=== PATIENT | female | born 2000 | race African-American/Black ===

== ENCOUNTER 2020-01-15 10:09 | Emergency (ER) | payer OTHER, SELFPAY ==
[2020-01-15 10:38] VITALS: BP 130/71; PULSE 95; RESP 16; TEMP 37.1; O2SAT 100
--- NOTE | 2020-01-15 10:39 | ED.URI ---
HPI - URI/Sore Throat General Chief Complaint: Upper Respiratory Infection Stated Complaint: Nausea/Headache Time Seen by Provider: 01/15/20 10:39 Source: patient and RN notes reviewed History of Present Illness HPI Narrative: Patient is a 19-year-old female presents the urgent care with complaints of nausea and headache for 3 days. Patient denies any nausea at this time and states that her headache is a 2 on a 10 scale. Patient has been using ibuprofen and states that it does get better . Patient is reporting of a right frontal headache. Denies any history of migraines, trauma, injury, vision changes. Denies of any fever, sore throat, upper respiratory symptoms. No other acute complaints. Denies any chance of . Patient read the plan of care. Related Data Home Medications Medication Instructions Recorded Confirmed norethindrone (contraceptive) 0.35 mg PO DAILY 01/15/20 01/15/20 Allergies Allergy/AdvReac Type Severity Reaction Status Date / Time No Known Allergies Allergy Verified 01/15/20 10:43 Review of Systems Review of Systems: Narrative: CONSTITUTIONAL: Denies fever, chills, or sweats. EYES: Denies visual changes, redness, or discharge. ENT: Denies rhinorrhea, congestion, sore throat, or otalgia. CARDIOVASCULAR: Denies chest pain, palpitations, or edema. RESPIRATORY: Denies cough or dyspnea. GASTROINTESTINAL: Reports of intermittent nausea without abdominal pain, vomiting, diarrhea GENITOURINARY: Denies dysuria or hematuria. SKIN: Denies rash or itching. MUSCULOSKELETAL: Denies back pain, joint pain, or myalgia. NEUROLOGIC: Reports of headache All other systems reviewed are negative, except as documented in HPI. PMFSH Past Medical History Medical History (Updated 01/15/20 @ 10:57 by NATALIE Petty) Bacterial meningitis Surgical History Surgical History (Updated 10/08/19 @ 11:19 by NATALIE Collins) Previous section Comments At the time of my signature, I reviewed and agree with the nursing past medical, surgical, social, and family history. There is no relevant family history pertinent to the patient complaint. Exam Narrative: Exam Narrative: GENERAL: This is a well-nourished, well-developed patient, in no apparent distress. HEAD: normocephalic, atraumatic. EYES: PERRL. Sclera clear/white. Vision is grossly intact. EARS: External ears normal, auditory canals clear and without drainage, TMs normal without perforation. Hearing grossly intact. NOSE: External nose normal with no obvious nasal discharge, nares without redness, no rhinorrhea. THROAT: Mucous membranes moist, posterior pharynx clear. NECK: Neck supple, non-tender without lymphadenopathy, masses or thyromegaly. CARDIOVASCULAR: Regular rate and rhythm without murmurs, gallops, or rubs. RESPIRATORY: Clear to auscultation. Breath sounds equal bilaterally. No wheezes, rales, or rhonchi. SKIN: warm, intact with no suspicious lesions or rash, good texture and turgor. NEURO: awake, alert, and oriented to person, place and time. There were no obvious focal neurologic abnormalities. EXTREMITIES: No clubbing, cyanosis, or edema. Course Vital Signs Vital signs: Vital Signs Temperature 98.7 F 01/15/20 10:38 Pulse Rate 95 01/15/20 10:38 Respiratory Rate 16 01/15/20 10:38 Blood Pressure 130/71 01/15/20 10:38 Pulse Oximetry 100 01/15/20 10:38 Temperature 98.7 F 01/15/20 10:38 Pulse Rate 95 01/15/20 10:38 Respiratory Rate 16 01/15/20 10:38 Blood Pressure 130/71 01/15/20 10:38 Pulse Oximetry 100 01/15/20 10:38 Reviewed MDM - URI/Sore Throat MDM Narrative Medical decision making narrative: Advised the patient to continue using ibuprofen as needed for headache. May try using Excedrin but do not take in conjunction with ibuprofen. Make sure to eat and drink with the medications. Eat a bland diet to avoid vomiting. If headache persists and you develop vomiting?go to the emergency
== END 2020-01-15 11:06 | disposition home or self-care (01) ==
PROVIDERS: Emergency Provider Nurse Practitioner Family
DX: R51 Headache (principal); Z86.61 Personal history of infections of the central nervous system
CPT/HCPCS: 99211; G0463

== ENCOUNTER 2020-09-04 11:28 | Emergency (ER) | payer OTHER, SELFPAY ==
[2020-09-04 11:45] VITALS: BP 133/62; PULSE 72; RESP 18; TEMP 36.7; O2SAT 99
--- NOTE | 2020-09-04 12:12 | ED.URI ---
HPI - URI/Sore Throat General Chief Complaint: Upper Respiratory Infection Stated Complaint: sore throat/bump on side of face Time Seen by Provider: 09/04/20 11:50 Source: patient and RN notes reviewed Mode of arrival: ambulatory Limitations: no limitations History of Present Illness HPI Narrative: Patient presents today left ear pain lump in front of the left ear is painful x1 week. She reports a sore throat, cough, and body aches x5 days. Reports was diagnosed with strep throat 4 days ago. Denies shortness of breath, fever, difficulty swallowing. Currently rates her pain 5/10 and has been occasionally taking ibuprofen with some relief. Declines COVID-19 testing. MD elicited complaint: sore throat Related Data Home Medications Medication Instructions Recorded Confirmed norethindrone (contraceptive) 0.35 mg PO DAILY 01/15/20 09/04/20 Allergies Allergy/AdvReac Type Severity Reaction Status Date / Time No Known Allergies Allergy Verified 09/04/20 12:53 Review of Systems Review of Systems: Narrative: CONSTITUTIONAL: Denies fever, chills, or sweats.+ Body aches EYES: Denies visual changes, redness, or discharge. ENT: Denies rhinorrhea, congestion. + Left ear pain, sore throat CARDIOVASCULAR: Denies chest pain, palpitations, or edema. RESPIRATORY: Denies dyspnea.+ GASTROINTESTINAL: Denies abdominal pain, nausea, vomiting, or diarrhea. GENITOURINARY: Denies dysuria or hematuria. SKIN: Denies rash, itching, or wounds. MUSCULOSKELETAL: Denies back pain, joint pain, or myalgia. NEUROLOGIC: Denies headache, numbness, tingling, or weakness. PSYCH: Denies depression or anxiety. PMFSH Past Medical History Medical History (Updated 09/04/20 @ 12:15 by Liv Strauss, NATALIE, ) Bacterial meningitis Surgical History Surgical History (Updated 10/08/19 @ 11:19 by CHAVEZ CollinsP) Previous section Comments At time of signature, I have reviewed and agree with nursing past medical, surgical, social and family history unless otherwise noted. Please see nursing chart for further information. There is no relevant family history pertinent to the presenting complaint Exam Narrative: Exam Narrative: GENERAL: Well-appearing, well-nourished, and in no acute distress. HEAD: Normocephalic, atraumatic. EYES: EOMI. No redness or drainage. Conjunctivae normal. ENT: Mucous membranes pink and moist. Nares clear. No rhinorrhea. TMs normal bilaterally. Throat erythematous with mild edema. No exudate. Uvula midline. NECK: Normal AROM. Supple. Left preauricular and left anterior cervical chain lymphadenopathy. CHEST: No respiratory distress. Clear to auscultation. HEART: Regular rate and rhythm. No murmur appreciated. Normal peripheral pulses. EXTREMITIES: Normal range of motion. No edema. SKIN: Warm, dry, no rash. Capillary refill normal. Normal skin turgor. NEURO: No focal deficits. Alert and oriented x3. Gait steady. PSYCH: Normal affect. No signs of depression or anxiety. Course Vital Signs Vital signs: Vital Signs Temperature 98.0 F 09/04/20 11:45 Pulse Rate 72 09/04/20 11:45 Respiratory Rate 18 09/04/20 11:45 Blood Pressure 133/62 09/04/20 11:45 Pulse Oximetry 99 09/04/20 11:45 Temperature 98.0 F 09/04/20 11:45 Pulse Rate 72 09/04/20 11:45 Respiratory Rate 18 09/04/20 11:45 Blood Pressure 133/62 09/04/20 11:45 Pulse Oximetry 99 09/04/20 11:45 Reviewed. Pt has been instructed to follow up with her PCP regarding her elevated blood pressure today. MDM - URI/Sore Throat Differential Diagnosis Differential diagnosis: Likely upper respiratory infection, otitis media, sinusitis, viral infection, bronchitis, pharyngitis and other (Strep throat) Lab Data Attestation: I reviewed the patient's lab results. Labs: Strep Screen Presumptive Negative *(Reference Range: Negative)* Critical Care Time Critical C
== END 2020-09-04 12:20 | disposition home or self-care (01) ==
PROVIDERS: Emergency Provider Nurse Practitioner; PCP Family Medicine
DX: J06.9 Acute upper respiratory infection, unspecified (principal)
CPT/HCPCS: 87081; 87880; 99213; G0463

== ENCOUNTER 2021-07-11 10:49 | Outpatient (CLI) | payer OTHER, SELFPAY ==
[2021-07-11 20:07] LABS: Basophils Absolute Auto 0.1 K/mm3 (0.0-0.1); Basophils Percent Auto 0.5 % (0.2-1.2); Eosinophils Absolute Auto 0.1 K/mm3 (0-0.3); Eosinophils Percent Auto 1.1 % (0-4.4); Hematocrit 38.5 % (37.0-47.0); Hemoglobin 12.2 g/dL (12.0-15.0); Immature Granulocyte Absolute 0.06 K/mm3 (0.00-0.031); Immature Granulocyte Percent A 0.5 % (0-0.5); Lymphocytes Absolute Auto 2.46 K/mm3 (0.9-3.2); Lymphocytes Percent Auto 22.3 % (18.3-44.2); Mean Corpuscular HGB Conc 31.7 g/dl (32-36); Mean Corpuscular Hemoglobin 26.5 pg (26-34); Mean Corpuscular Volume 83.7 fl (80-100); Mean Platelet Volume 10.4 fl (7.4-10.4); Monocytes Absolute Auto 0.9 K/mm3 (0.1-0.6); Monocytes Percent Auto 7.8 % (2.6-8.5); Neutrophils Absolute Auto 7.5 K/mm3 (1.3-6.7); Neutrophils Percent Auto 67.8 % (45.5-73.1); Platelet Count Result 294 k/mm3 (150-375); Red Cell Distribution Width 13.4 % (11.5-14.5)
[2021-07-11 20:13] LABS: Add Urine Microscopic? YES; Appearance Urine Cloudy (Clear); Bilirubin Urine Negative (Negative); Blood Urine Negative (Negative); Calcium Oxalate Crystals Urine Many /hpf; Color Urine Amber (Yellow); Glucose Urine UA Negative (Negative); Ketones Urine Negative (Negative); Leukocyte Esterase Ur Negative LEU/UL (NEGATIVE); Mucus Urine Heavy /lpf; Nitrate Urine Negative (Negative); Protein Urine Negative (Negative); Specific Grav Ur 1.029 (1.001-1.035); Squamous Epithelial Cell Urine Many /hpf (Few)
[2021-07-11 20:31] LABS: Vitamin D 25 Hydroxy 31.9 ng/mL
[2021-07-11 20:46] LABS: Hepatitis B Surface Antigen Negative (Negative); Rubella IgG Antibody 8.9 IU/ML
[2021-07-11 20:48] LABS: Thyroid Stimulating Hormone 0.843 uIU/mL (0.465-4.680)
[2021-07-11 20:55] LABS: HIV 1/2 Ab P24 Ag Result Negative (Negative)
[2021-07-11 21:03] LABS: Hepatitis C Virus Antibody Negative (Negative)
[2021-07-12 11:20] LABS: Rapid Plasma Reagin Non-Reactive (NonReactive)
[2021-07-17 04:14] LABS: Hemoglobin 12.4 g/dL (11.7-15.5); MCH 27.4 pg (27.0-33.0); MCV 84.4 fL (80.0-100.0); RDW 14.5 % (11.0-15.0)
== END 2021-07-11 10:50 | disposition home or self-care (01) ==
PROVIDERS: PCP Family Medicine; Visit Provider Obstetrics & Gynecology
DX: Z34.90 Encounter for supervision of normal pregnancy, unspecified, unspecified trimester (principal); N91.2 Amenorrhea, unspecified; Z3A.00 Weeks of gestation of pregnancy not specified
CPT/HCPCS: 36415; 81001; 82306; 83021; 84443; 85025; 86592; 86703; 86762; 86787; 86803; 86850; 86900; 86901; 87086; 87340; G0432

== ENCOUNTER 2021-10-03 11:23 | Outpatient (CLI) | payer OTHER, SELFPAY ==
[2021-10-03 18:26] LABS: Basophils Percent Auto 0.4 % (0.2-1.2); Eosinophils Absolute Auto 0.1 K/mm3 (0-0.3); Eosinophils Percent Auto 1.2 % (0-4.4); Hematocrit 35.4 % (37.0-47.0); Hemoglobin 11.4 g/dL (12.0-15.0); Immature Granulocyte Absolute 0.08 K/mm3 (0.00-0.031); Immature Granulocyte Percent A 0.7 % (0-0.5); Lymphocytes Absolute Auto 2.31 K/mm3 (0.9-3.2); Lymphocytes Percent Auto 21.1 % (18.3-44.2); Mean Corpuscular HGB Conc 32.2 g/dl (32-36); Mean Corpuscular Hemoglobin 27.9 pg (26-34); Mean Corpuscular Volume 86.8 fl (80-100); Mean Platelet Volume 10.8 fl (7.4-10.4); Monocytes Absolute Auto 0.9 K/mm3 (0.1-0.6); Monocytes Percent Auto 7.9 % (2.6-8.5); Neutrophils Absolute Auto 7.5 K/mm3 (1.3-6.7); Neutrophils Percent Auto 68.7 % (45.5-73.1); Platelet Count Result 251 k/mm3 (150-375); Red Blood Count 4.08 M/mm3 (4.2-5.4); Red Cell Distribution Width 12.7 % (11.5-14.5); White Blood Count 10.9 K/mm3 (4.5-10.0)
[2021-10-03 18:31] LABS: Glucose 1 Hour PP 50gm Dose 113 mg/dL
[2021-10-03 19:10] LABS: HIV 1/2 Ab P24 Ag Result Negative (Negative)
[2021-10-04 07:12] LABS: Rapid Plasma Reagin Non-Reactive (NonReactive)
== END 2021-10-03 11:24 | disposition home or self-care (01) ==
LOC: ANHBWCLAB 11:24
PROVIDERS: PCP Family Medicine; Visit Provider Obstetrics & Gynecology
DX: Z34.90 Encounter for supervision of normal pregnancy, unspecified, unspecified trimester (principal); Z3A.00 Weeks of gestation of pregnancy not specified
CPT/HCPCS: 36415; 82947; 85025; 86592; 86703; G0432

== ENCOUNTER 2021-10-11 15:11 | Observation (INO) | payer OTHER, SELFPAY ==
[2021-10-11 15:45] VITALS: BP 126/67; PULSE 98
[2021-10-11 15:57] VITALS: BMI 36.4
--- NOTE | 2021-10-11 16:37 | OBADM ---
This patient, Sherrie Ellis, admitted to the OB room OB Post 117 for observation. Patient oriented to hospital policies and general routines including ID bracelet, bed and alarms, visiting hours, pain management, procedures, bathroom and other care routines, call light. Patient is encouraged to report perceived risks to care and to ask questions if she does not understand what she is told or what she should do.
--- NOTE | 2021-10-16 08:15 | PM.OBTRLD ---
OB - Triage/Final Diagnosis Visit Information Comments/Additional reasons for admission: I have assessed the risk for this patient, Sherrie Li Caleb, and determined that she would benefit from observation care. Final Diagnosis (1) contractions: Code(s): O47.00 - False labor before 37 completed weeks of gestation, unspecified trimester Status: Acute
== END 2021-10-11 16:42 | disposition home or self-care (01) ==
PROVIDERS: Admitting Provider Obstetrics & Gynecology; PCP Family Medicine; Visit Provider Obstetrics & Gynecology
DX: O60.02 Preterm labor without delivery, second trimester (principal); Z3A.27 27 weeks gestation of pregnancy
CPT/HCPCS: G0378; G0379

== ENCOUNTER 2021-10-31 14:27 | Outpatient (CLI) | payer OTHER, SELFPAY ==
[2021-10-31 15:02] LABS: Basophils Absolute Auto 0.1 K/mm3 (0.0-0.1); Basophils Percent Auto 0.4 % (0.2-1.2); Eosinophils Absolute Auto 0.1 K/mm3 (0-0.3); Eosinophils Percent Auto 0.6 % (0-4.4); Hematocrit 36.4 % (37.0-47.0); Hemoglobin 11.7 g/dL (12.0-15.0); Immature Granulocyte Percent A 0.8 % (0-0.5); Lymphocytes Absolute Auto 2.45 K/mm3 (0.9-3.2); Lymphocytes Percent Auto 19.8 % (18.3-44.2); Mean Corpuscular HGB Conc 32.1 g/dl (32-36); Mean Corpuscular Hemoglobin 27.5 pg (26-34); Mean Corpuscular Volume 85.6 fl (80-100); Mean Platelet Volume 10.8 fl (7.4-10.4); Monocytes Absolute Auto 1.1 K/mm3 (0.1-0.6); Monocytes Percent Auto 8.5 % (2.6-8.5); Neutrophils Absolute Auto 8.7 K/mm3 (1.3-6.7); Neutrophils Percent Auto 69.9 % (45.5-73.1); Platelet Count Result 216 k/mm3 (150-375); Red Blood Count 4.25 M/mm3 (4.2-5.4); Red Cell Distribution Width 12.5 % (11.5-14.5); White Blood Count 12.4 K/mm3 (4.5-10.0)
[2021-10-31 15:14] LABS: Alanine Aminotransferase 15 U/L (4-35); Alkaline Phosphatase 129 U/L (38-126); Anion Gap 8 mmol/L (8-16); Aspartate Amino Transferase 23 U/L (14-36); Blood Urea Nitrogen 5 mg/dL (7-17); Carbon Dioxide 23 mmol/L (22-30); Chloride 103 mmol/L (98-107); Estimated Glomerular Filt Rate > 60; Glucose 110 mg/dL (65-110); Potassium 4.3 mmol/L (3.4-5.0); Sodium 134 mmol/L (137-145); Uric Acid 3.3 mg/dL (2.5-7.5)
[2021-10-31 15:28] LABS: Lactate Dehydrogenase 496 U/L (313-618)
== END 2021-10-31 14:28 | disposition home or self-care (01) ==
PROVIDERS: PCP Family Medicine; Visit Provider Student in an Organized Health Care Education/Training Program
DX: R03.0 Elevated blood-pressure reading, without diagnosis of hypertension (principal); O09.299 Supervision of pregnancy with other poor reproductive or obstetric history, unspecified trimester; Z3A.00 Weeks of gestation of pregnancy not specified
CPT/HCPCS: 36415; 80053; 83615; 84550; 85025

== ENCOUNTER 2021-11-01 17:26 | Outpatient (CLI) | payer OTHER, SELFPAY ==
[2021-11-01 19:05] LABS: Total Volume 24 Hour Urine 900 ml
[2021-11-01 19:14] LABS: Total Protein Urine 24 Hr 81 mg/24hr (28-141); Total Protein Urine Random 9 mg/dL
[2021-11-01 19:15] LABS: Creatinine 24 Hour Urine 1.3 gm/24 (0.8-1.8)
== END 2021-11-01 17:27 | disposition home or self-care (01) ==
LOC: ANHLAB 17:29
PROVIDERS: PCP Family Medicine; Visit Provider Student in an Organized Health Care Education/Training Program
DX: R03.0 Elevated blood-pressure reading, without diagnosis of hypertension (principal); O09.299 Supervision of pregnancy with other poor reproductive or obstetric history, unspecified trimester; Z3A.00 Weeks of gestation of pregnancy not specified
CPT/HCPCS: 81050; 82570; 84156

== ENCOUNTER 2021-11-26 07:46 | Outpatient (CLI) | payer OTHER, SELFPAY ==
[2021-11-26] VITALS (10 sets, daily range): BP systolic 118–133; BP diastolic 61–77; PULSE 82–90; TEMP 37.2
--- NOTE | 2021-11-26 08:49 | PC.NURSE ---
Dr. Castorena informed of this pt's arrival at 34 wks twin gestation with c/o headache since yesterday morning, spots in vision at times, upper abdominal burning, no edema, and normal reflexes. Pt took Tylenol early this morning when she rated her headache an 8-9 and she rated it a 5-6 upon arrival. Orders received.
[2021-11-26 09:20] LABS: Basophils Absolute Auto 0.1 K/mm3 (0.0-0.1); Basophils Percent Auto 0.5 % (0.2-1.2); Eosinophils Absolute Auto 0.1 K/mm3 (0-0.3); Hematocrit 33.4 % (37.0-47.0); Immature Granulocyte Absolute 0.05 K/mm3 (0.00-0.031); Immature Granulocyte Percent A 0.5 % (0-0.5); Lymphocytes Absolute Auto 2.03 K/mm3 (0.9-3.2); Lymphocytes Percent Auto 22.1 % (18.3-44.2); Mean Corpuscular HGB Conc 32.9 g/dl (32-36); Mean Corpuscular Hemoglobin 27.4 pg (26-34); Mean Corpuscular Volume 83.3 fl (80-100); Mean Platelet Volume 11.1 fl (7.4-10.4); Monocytes Absolute Auto 0.7 K/mm3 (0.1-0.6); Monocytes Percent Auto 7.7 % (2.6-8.5); Neutrophils Absolute Auto 6.3 K/mm3 (1.3-6.7); Neutrophils Percent Auto 68.2 % (45.5-73.1); Platelet Count Result 190 k/mm3 (150-375); Red Blood Count 4.01 M/mm3 (4.2-5.4); Red Cell Distribution Width 12.5 % (11.5-14.5); White Blood Count 9.2 K/mm3 (4.5-10.0)
[2021-11-26 09:29] LABS: Alanine Aminotransferase 14 U/L (4-35); Albumin Level 3.6 g/dL (3.5-5.1); Alkaline Phosphatase 167 U/L (38-126); Anion Gap 8 mmol/L (8-16); Aspartate Amino Transferase 17 U/L (14-36); Bilirubin,Total 0.8 mg/dL (0.2-1.3); Blood Urea Nitrogen 5 mg/dL (7-17); Calcium 8.9 mg/dL (8.4-10.2); Carbon Dioxide 23 mmol/L (22-30); Chloride 103 mmol/L (98-107); Estimated Glomerular Filt Rate > 60; Glucose 97 mg/dL (65-110); Sodium 134 mmol/L (137-145); Uric Acid 3.7 mg/dL (2.5-7.5)
[2021-11-26 09:30] LABS: Creatinine Urine 211.3 mg/dL; Total Protein Urine Random 8 mg/dL; Ur Ttl Prot Creatinine Ratio 0.04 mg/mg (0-0.20)
[2021-11-26 09:40] LABS: Add Urine Microscopic? YES; Appearance Urine Cloudy (Clear); Bacteria Urine Trace /hpf; Bilirubin Urine Negative (Negative); Blood Urine Negative (Negative); Color Urine Amber (Yellow); Glucose Urine UA Negative (Negative); Ketones Urine Negative (Negative); Leukocyte Esterase Ur Negative LEU/UL (Negative); Mucus Urine Heavy /lpf; Nitrate Urine Negative (Negative); Protein Urine 1+ mg/dL (Negative); Specific Grav Ur 1.027 (1.001-1.035); Squamous Epithelial Cell Urine Many /hpf (Few); WBC Urine 0-3 /hpf
--- NOTE | 2021-11-26 09:56 | PC.NURSE ---
Dr. Castorena informed of lab results and updated on BP's. Order for discharge received. Pt to be seen in office this week.
== END 2021-11-26 10:13 | disposition home or self-care (01) ==
LOC: ANHOBOP 07:54 → ANHOBPP 07:54
PROVIDERS: PCP Family Medicine; Visit Provider Student in an Organized Health Care Education/Training Program
DX: O13.3 Gestational [pregnancy-induced] hypertension without significant proteinuria, third trimester (principal); Z3A.37 37 weeks gestation of pregnancy
CPT/HCPCS: 36415; 59025; 80053; 81001; 82570; 84156; 84550; 85025; 99199

== ENCOUNTER 2021-12-18 11:36 | Outpatient (RCR) | payer OTHER, SELFPAY ==
[2021-11-30 17:16] VITALS: BP 124/75
[2021-12-18 12:12] LABS: Basophils Percent Auto 0.3 % (0.2-1.2); Eosinophils Absolute Auto 0.1 K/mm3 (0-0.3); Eosinophils Percent Auto 0.8 % (0-4.4); Hematocrit 33.6 % (37.0-47.0); Hemoglobin 10.9 g/dL (12.0-15.0); Immature Granulocyte Absolute 0.06 K/mm3 (0.00-0.031); Immature Granulocyte Percent A 0.7 % (0-0.5); Mean Corpuscular HGB Conc 32.4 g/dl (32-36); Mean Corpuscular Hemoglobin 26.7 pg (26-34); Mean Corpuscular Volume 82.2 fl (80-100); Mean Platelet Volume 11.4 fl (7.4-10.4); Neutrophils Absolute Auto 5.5 K/mm3 (1.3-6.7); Neutrophils Percent Auto 62.2 % (45.5-73.1); Platelet Count Result 184 k/mm3 (150-375); Red Blood Count 4.09 M/mm3 (4.2-5.4); Red Cell Distribution Width 12.2 % (11.5-14.5); White Blood Count 8.8 K/mm3 (4.5-10.0)
[2021-12-18 12:13] VITALS: BP 135/78
[2021-12-18 12:57] LABS: HIV 1/2 Ab P24 Ag Result Negative (Negative)
[2021-12-19 10:42] LABS: Rapid Plasma Reagin Non-Reactive (NonReactive)
== END 2021-12-29 20:55 | disposition home or self-care (01) ==
LOC: ANHOBOP 11:36
PROVIDERS: PCP Family Medicine; Visit Provider Student in an Organized Health Care Education/Training Program
DX: O30.003 Twin pregnancy, unspecified number of placenta and unspecified number of amniotic sacs, third trimester (principal); Z11.4 Encounter for screening for human immunodeficiency virus [HIV]; Z3A.34 34 weeks gestation of pregnancy; Z3A.37 37 weeks gestation of pregnancy
CPT/HCPCS: 36415; 59025; 85025; 86592; 86703; 86850; 86900; 86901; G0432; J2274

== ENCOUNTER 2021-12-19 05:37 | Inpatient (IN) | payer OTHER, SELFPAY ==
[2021-12-19] VITALS (46 sets, daily range): BP systolic 102–132; BP diastolic 44–81; PULSE 51–134; RESP 12–20; TEMP 36.2–36.9; O2SAT 78–100; BMI 38.1
--- NOTE | 2021-12-19 05:37 | LDADM ---
This patient, Sherrie Ellis, was admitted to Labor/Delivery/Recovery 120 on 12/19/21 at 05:37. Plans for labor, pain management and were discussed with patient. Patient/family oriented to hospital policies and general routines including ID bracelet, bed and alarms, visiting hours, pain management, procedures, bathroom and other care routines, personal items, smoking policy, room service/diet and guest tray routines, infant security routines, and visiting hours. Patient/Family are encouraged to report perceived risks to care and to ask questions if they do not understand what they are told or what they should do. See OBIX for further documentation.
[2021-12-19] MEDS: LACTATED RINGERS 1,000 ML 125 ML IV CONT ×2 (06:27→07:23)
--- NOTE | 2021-12-19 06:59 | P.PNAN_ITS ---
Anes - Initial Pre Proc Eval Procedure: Operation Date: 12/19/21 07:30 Proposed Procedures p Repeat Section- Twins - Anya Castorena MD Date/Time: 12/19/21 06:59 Surgeon: Anya Castorena MD Pre Op Diagnosis: CSection Patient Data Age: 21 Gender: F Height: 1.8 m Weight: 124 kg Last Vital Signs Pulse 97 12/19/21 06:45 BP 124/78 12/19/21 06:45 Allergies Allergy/AdvReac Type Severity Reaction Status Date / Time No Known Allergies Allergy Verified 12/14/21 15:00 Home Medications Medication Instructions Recorded Confirmed Type prenat.vits,lupis,hfj-cfej-pvbzm 1 tablet PO DAILY 06/14/21 12/07/21 History ferrous sulfate 325 mg (65 mg 325 mg PO DAILY 09/05/21 12/07/21 History iron) tablet folic acid 1 mg tablet 1 mg PO DAILY 09/05/21 12/07/21 History aspirin [Aspirin Low-Strength] 162 mg PO DAILY 11/26/21 12/07/21 History Patient hx anesthesia problems: none Family hx anesthesia problems: none Results Review: All pre-operative results and documents have been reviewed as part of the pre-operative evaluation. [facility] Past Medical History Medical History Bacterial meningitis Elevated blood-pressure reading without diagnosis of hypertension History of miscarriage x 1 History of pre-eclampsia 2019 Surgical History Surgical History Previous section 2019 for failure to progress Family History Family History Mother Depression Social History Social History Smoking status: Never smoker Alcohol intake: never Substance use: never Spiritual care concerns: No Anes - Eval Final PreProcedure Day of Procedure 12/19/21 06:59 Patient weight: obese Heart: regular rate and rhythm Lungs: clear to auscultation and normal air movement Airway: Mallampati scale class II Neurological: alert and oriented Last oral intake: >/= 8 hours ASA classification: III Emergent: no Anesthetic plan: proceed Anesthesia type and monitoring: regional spinal Results Review: All pre-operative results and documents have been reviewed as part of the pre-operative evaluation. Informed Consent: The patient's anesthetic plan and its attendant risks and benefits were discussed with the patient/family/POA. Questions were solicited and answers provided to the satisfaction of the patient/family/POA.
--- NOTE | 2021-12-19 07:08 | PM.IMHP ---
H&P: HPI History of Present Illness Date/Time: 12/19/21 07:08 Patient is a 21 year old LMP 03/09/21 currently 37w2d gestation with THO 01/07/22 who presents to L&D for scheduled repeat section secondary to gestational hypertension. Patient is dated by early outside [place]. This is a di-di twin gestation. Patient has a history of previous C/S x 1 and had a history of preeclampsia in previous . She was delivered at 36 weeks. In general, patient reports feeling well today. Denies any headache, chest pain, shortness of breath, nausea, vomiting, right upper quadrant, or visual disturbances. Patient also denies any vaginal bleeding, leakage of fluid, or contractions. Reports good movement x2. Chief Complaint: IUP at 37w2d Previous section Di/Di twin gestation Gestational hypertension Review of Systems Review of Systems: All systems reviewed & are unremarkable except as noted in HPI and below Constitutional: Constitutional: Reports as per HPI, Reports no additional constitutional complaints, Denies chills, Denies fever(s), Denies headache(s) and Denies night sweats Eyes: Eyes: Reports as per HPI and Reports no additional eye complaints ENT: Reports system reviewed and no additional complaints, except as documented, Reports as per HPI, Reports Normal hearing present and Denies headache(s) Cardiovascular: Cardiovascular: Reports as per HPI, Reports no additional cardiovascular complaints, Denies chest pain and Denies dyspnea Respiratory: Respiratory: Reports as per HPI, Reports no additional respiratory complaints, Denies cough and Denies dyspnea Gastrointestinal: Gastrointestinal: Reports as per HPI, Reports no additional gastrointestinal complaints, Denies abdominal pain, Denies change in bowel habits, Denies change in stool character, Denies nausea and Denies vomiting Genitourinary: Genitourinary: Reports no additional female genitourinary complaints, Reports as per HPI, Denies abnormal vaginal bleeding, Denies genital lesions, Denies hot flashes, Denies dyspareunia, Denies pelvic pain, Denies sexual dysfunction, Denies urinary incontinence, Denies vaginal discharge, Denies vaginal dryness and Denies vaginal odor Musculoskeletal: Musculoskeletal: Reports no additional musculoskeletal complaints and Reports as per HPI Integumentary/Breasts: Skin/Breast: Reports system reviewed and no additional complaints, except as docu, Reports as per HPI, Denies breast pain and Denies nipple discharge Neurologic: Reports system reviewed and no additional complaints, except as documented, Reports as per HPI, Reports Normal hearing present and Denies headache(s) Psychiatric: Psychiatric: Reports no additional psychiatric complaints, Reports as per HPI, Denies anxiety and Denies depression Endocrine: Endocrine: Reports no additional endocrine complaints and Reports as per HPI Hematologic/Lymphatic: Hematologic/Lymphatic: Reports no additional hematologic/lymphatic complaints and Reports as per HPI Allergic/Immunologic: Allergic/Immunologic: Reports no additional allergic/immunologic complaints and Reports as per HPI PMFSH Past Medical History Medical History (Updated 12/19/21 @ 07:12 by Anya Castorena MD) Bacterial meningitis History of miscarriage x 1 History of pre-eclampsia 2019 Surgical History Surgical History Previous section 2019 for failure to progress Family History Family History Mother Depression Social History Social History Smoking status: Never smoker Alcohol intake: never Substance use: never Spiritual care concerns: No Meds Home Medications and Allergies Home Medications Medication Instructions Recorded Confirmed Type prenat.vits,lupis,mxp-crhm-qbiiv 1 tablet PO DAILY 06/14/21 12/07/21 History ferrous sulfate
--- NOTE | 2021-12-19 07:15 | WPDHPUPDATE1 ---
History and Physical Update Update Date/Time: 12/19/21 07:15 History and Physical has been reviewed, including an updated exam of the patient. There are NO changes in the patient's condition. Risks, benefits, and alternatives have been discussed and questions answered. Patient agrees to proceed with procedure.
[2021-12-19] MEDS: KETOROLAC 30 MG/ML VIAL (*BKC) IV PUSH ×2 (08:30→16:45)
--- NOTE | 2021-12-19 08:46 | W.PM.PROC2 ---
Procedure Note - Detailed Date of Procedure 12/19/21 Pre-op Diagnosis Intrauterine at 37w2d gestation Previous section x 1 Dichorionic diamniotic twin gestation Gestational hypertension Post-op Diagnosis same Procedure Performed Repeat low transverse section via Pfannenstiel Surgeon Anya Castorena MD Technology Assistant Leonie See Anesthesia spinal Findings Twin A: live male in cephalic presentation, apgars 9/9, weighing 6 lbs 14 oz, clear amniotic fluid; Twin B: live male in edi breech presentation, nuchal cord x 1, apgars 7/9, weighing 6 lbs 4 oz, clear amniotic fluid; normal appearing uterus, ovaries, and fallopian tubes bilaterally Description of Procedure The patient was taken to the operating room, where she self-transferred to the operating room table. Spinal anesthesia was administered and found to be adequate. The patient was placed in dorsal supine position with a leftward tilt. She was prepped and draped in the usual sterile fashion. Spinal anesthesia was tested and found to be adequate. A Pfannenstiel skin incision was made with a scalpel and carried through to underlying layer of fascia with the Bovie. The fascia was incised in the midline and the incision was extended laterally with the use of forceps and James scissors. The inferior aspect of the fascial incision was grasped with Katerine clamps, elevated, and the underlying rectus muscle were dissected off with James scissors. Attention was then turned to the superior aspect of the fascial incision, which in a similar manner, was grasped with Katerine clamps, elevated, and the underlying rectus muscles were also dissected off with James scissors. The rectus muscles were in the midline and the peritoneal cavity was entered bluntly. This incision was extended superiorly and inferiorly with good visualization of the bladder and care was taken to avoid blood vessels. An Eric retractor was introduced into the abdominal cavity and tightened for enhanced visualization. A bladder blade was inserted. The vesicouterine peritoneum was identified and incised sharply with Metzenbaum scissors. This incision was extended laterally with Metzenbaum scissors and a bladder flap was created digitally. The bladder blade was replaced. A low-transverse uterine incision was made with a scalpel. This incision was extended laterally with bandage scissors. Amniotomy was performed. Clear amniotic fluid was noted. A's head was grasped and gently guided to the level of the uterine incision. The 's head was delivered easily and atraumatically without difficulty followed by the neck, shoulders, and rest of body with gentle fundal pressure. The infant's nose and mouth were suctioned bulb suction. The infant was crying spontaneously. The cord was clamped and cut and the infant was handed off to awaiting nursing staff. A segment of cord was collected for cord gases. B was palpated and noted to be in breech presentation. Amniotomy was performed. Clear amniotic fluid was noted. Infant's buttocks were grasped and guided to the level of the uterine incision. The buttocks were delivered through the incision. The infant was slowly guided through the incision and gently rotated to the left. The right lower extremity was flexed and delivered. The infant was gently rotated to the right where, in a similar manner, the left lower extremity was flexed and delivered. A sterile towel was wrapped around the and the was slowly guided to the level of the scapulae. The was gently rotated to the left and the right upper extremity was flexed and delivered. The was then rotated slightly to the right and the left upper extremity was also flexed and delivered. A nuchal cord x1 was noted. The 's head was gently grasped, flexed, and delivered atraumatically and without difficulty through the incision. The nuchal cord was reduced. Infant's nose and mouth were jefferson
[2021-12-19] MEDS: diphenhydrAMINE HCl INJ 50 MG/ML VIAL 25 MG IV PUSH (08:52)
[2021-12-19] MEDS: OXYTOCIN 30 UNITS/NS 500 ML 30 UNITS/500 ML BAG 125 UNITS IV CONT (09:00)
--- NOTE | 2021-12-19 09:03 | P.PCNOB_ITS ---
OB - Delivery Note Procedure Delivery date: 12/19/21 Procedure: Procedures Operation Date: 12/19/21 07:30 <No data on this case meets the specified criteria> events: Previous and Induced HTN Intrapartal events: None Delivery monitor: external FHT and external uterine Route of delivery: Specimen: Yes (placenta and cord, cord blood, and cord gases) Quantitative Blood Loss (ml): 540 Anesthesia type: Spinal Disposition: PACU Complications: No immediate complications [place] Baby Date of : 12/19/21 Time of : 08:01 Weeks of gestation at delivery: 37 (37.2) gender: Male Weight (pounds): 6 Weight (ounces): 14 presentation: vertex Placenta delivery description: Spontaneous cord vessel description: 3 Vessels score one minute: 9 score five minutes: 9 Twins 1: Date of : 12/19/21 Time of : 08:04 Weeks of gestation at delivery: 37 (37.2) Infant gender: Male Weight (pounds): 6 Weight (ounces): 4 presentation: edi breech Placental delivery description: Spontaneous cord vessel description: Nuchal Cord (x1) score one minute: 7 score five minutes: 9 AMG Delivery Billing Delivery Delivery: Delivery Charge
--- NOTE | 2021-12-19 10:45 | PC.NURSE ---
Patient transferred to post room #277 via 1045. Support person present. Oriented to unit, room, information board, rooming in, admission packet and security measures. Patient verbalizes understanding.
--- NOTE | 2021-12-19 12:54 | PC.NURSE ---
1230 - Received report on the first for both baby A and B from nursery nurse.
--- NOTE | 2021-12-19 14:03 | PC.NURSE ---
1320 - Introductions were made and mother led the discussion of her desires to feeding her baby. Mom is holding sleepy baby B and dad is holding sleeping baby A. Reviewed handwashing to prevent infection before and after taking care of her baby. Mother verbalizes she is able to independently latch infants. She last attempted with Baby A at 0900. Discussed and reinforced how to watch for early feeding cues, place infant skin to skin, then feeding baby when is ready or every 2-3 hours (8-12 times in 24 hours) Reviewed positioning/alignment with the use of the mom and baby guide. Dad is demonstrating undressing A for skin to skin, then dad will supplement Baby B. Mom states she attempted to latch B to the breast around noon and it was on/off with difficulty latching. Mom requested formula for baby B. Supported mother with A skin to skin to the chest. No feeding cues at this time. Mom demonstrated knowledge of hand expression and confirmed her hands were clean, then placed expressed colostrum into infants mouth. She denies any nipple discomfort from earlier feeding and mom states that feeding went well. Mom's breast are large with flat nipples that john slightly with stimulation. Reinforced effective latching with demonstration with teaching tools and the mom and baby guide resource. Mother is not feeding as needed to meet requirements and teaching was reinforced. Mother has verbalized understanding and is watching for feeding cues for responsive feeding or how to stimulate infant to initiate from the start of the last feeding. Mother voiced understanding to feed infant when she sees feeding cues, 8-12 times in 24 hours approximately every 2-3 hours from the start of the last feeding or she has discomfort with nursing. Parents confirmed education of calling for assistance if the B brown not eat 15cc , either A or B does not latch or there is discomfort with nursing. Reported to primary RN.
--- NOTE | 2021-12-19 15:05 | PC.NURSE ---
1500 - RN requested to room 277. Mom states infant did not wake up for feeding after skin to skin and expressing colostrum into mouth. Mom requested a bottle for Baby A. Reported to primary RN.
[2021-12-19] MEDS: DEXTROSE 5%/0.45% SOD CHL 1,000 ML 125 ML IV CONT (16:15)
[2021-12-19] MEDS: FOLIC ACID 1 MG TABLET PO (16:18)
[2021-12-19] MEDS: SIMETHICONE 80 MG TAB.CHEW PO (21:21)
[2021-12-19] MEDS: HYDROcodone/acetaminophen (*CRX) 5-325 MG TABLET 1 TAB PO (21:21)
[2021-12-20] VITALS: BP 114/69; PULSE 82; RESP 18; TEMP 36.4
[2021-12-20] MEDS: SIMETHICONE 80 MG TAB.CHEW PO (03:50)
[2021-12-20] MEDS: IBUPROFEN 600 MG TABLET PO ×3 (03:50→17:06)
[2021-12-20] MEDS: HYDROcodone/acetaminophen (*CRX) 5-325 MG TABLET 1 TAB PO ×4 (03:51→20:39)
[2021-12-20 04:00] VITALS: BP 121/74; PULSE 74; RESP 18; TEMP 36.8
[2021-12-20 04:36] LABS: Basophils Percent Auto 0.3 % (0.2-1.2); Eosinophils Absolute Auto 0.1 K/mm3 (0-0.3); Hemoglobin 11.3 g/dL (12.0-15.0); Immature Granulocyte Absolute 0.05 K/mm3 (0.00-0.031); Immature Granulocyte Percent A 0.4 % (0-0.5); Lymphocytes Absolute Auto 2.72 K/mm3 (0.9-3.2); Lymphocytes Percent Auto 23.6 % (18.3-44.2); Mean Corpuscular HGB Conc 32.3 g/dl (32-36); Mean Corpuscular Hemoglobin 26.5 pg (26-34); Mean Corpuscular Volume 82.2 fl (80-100); Mean Platelet Volume 11.5 fl (7.4-10.4); Monocytes Absolute Auto 1.2 K/mm3 (0.1-0.6); Monocytes Percent Auto 10.7 % (2.6-8.5); Neutrophils Absolute Auto 7.4 K/mm3 (1.3-6.7); Platelet Count Result 171 k/mm3 (150-375); Red Blood Count 4.26 M/mm3 (4.2-5.4); Red Cell Distribution Width 12.2 % (11.5-14.5); White Blood Count 11.5 K/mm3 (4.5-10.0)
[2021-12-20 07:50] VITALS: BP 125/66; PULSE 74; RESP 18; TEMP 36.3; O2SAT 100
--- NOTE | 2021-12-20 10:03 | WPDANLDPN2 ---
Anes-Prog Note L&D Date/Time: 12/20/21 10:03 Comfortable throughout: section Neuraxial method: spinal Epidural/Spinal procedure site: clean & non-tender Neuro status: Neuro function grossly intact. Cardiovascular status: normal Respiratory status: normal Airway patency: baseline Mental status: baseline Post-Op hydration status: normal Vital Signs: Last Vital Signs Temp 36.3 C L 12/20/21 07:50 Pulse 74 12/20/21 07:50 Resp 18 12/20/21 07:50 BP 125/66 12/20/21 07:50 Pulse Ox 100 12/20/21 07:50 Pain score (VAS): 12/04 I/O: Intake & Output 12/19/21 12/20/21 12/20/21 23:59 07:59 15:59 Intake Total 3000 Output Total 600 3050 Balance -600 -50 Post-procedural complaints: pruritis mild, no treatment Patient feedback: Patient satisfied with anesthetic care.
--- NOTE | 2021-12-20 10:04 | WPDANLDNPN2 ---
Anes-Prog Note L&D-Neuraxial Date/Time: 12/20/21 10:04 Neuraxial medications: intrathecal PF morphine Opiod-related complaints: none Patient feedback: Patient satisfied with post-operative pain management.
[2021-12-20] MEDS: DOCUSATE SODIUM 100 MG CAPSULE PO ×2 (10:21→17:06)
[2021-12-20] MEDS: FOLIC ACID 1 MG TABLET PO (10:22)
[2021-12-20] MEDS: MULTIVIT/MIN/PREN/FOL AC/IRON TABLET 1 TAB PO (10:22)
--- NOTE | 2021-12-20 11:34 | PM.OBPNVD ---
OB - PN: Subj Subjective Date/time seen: 12/20/21 11:34 Patient doing well this AM. Pain well controlled with medication. Denies any headache, chest pain, shortness of breath, nausea, vomiting, right upper quadrant tenderness, or visual disturbances. Patient does report mild right shoulder discomfort, likely referred pain. Tolerating PO diet. Ambulating without difficulty. Voiding well. Passing flatus. OB - PN: Obj Data Labs CBC & Chem 7: 12/20/21 03:49 Labs: Laboratory Results - last 24 hr 12/20/21 03:49 WBC 11.5 H RBC 4.26 Hgb 11.3 L Hct 35.0 L MCV 82.2 MCH 26.5 MCHC 32.3 RDW 12.2 Plt Count 171 MPV 11.5 H Immature Gran % (Auto) 0.4 Neut % (Auto) 64.0 Lymph % (Auto) 23.6 [place] % (Auto) 10.7 H Eos % (Auto) 1.0 Baso % (Auto) 0.3 Lymph # (Auto) 2.72 [place] # (Auto) 1.2 H Eos # (Auto) 0.1 Baso # (Auto) 0.0 Abs Immat Gran (auto) 0.05 H Absolute Neuts (auto) 7.4 H Absolute Nucleated RBC 0.0 Nucleated RBC % 0.0 OB - PN A/P Assessment and Plan (1) Delivery by section using transverse incision of lower segment of uterus: Code(s): O82 - Encounter for delivery without indication Status: Acute Assessment and Plan: POD#1 doing well continue routine postoperative care pain management PRN Time Spent With Patient Time: Total time spent is greater than 50% in coordination of care (as documented) at patient's floor/unit and/or counseling patient: Exam Const: General: cooperative, healthy appearing, comfortable and no acute distress GI: Inspection: non-distended GI Palp: No Soft to palpation and No Tenderness to palpation present (GI) Other: fundus firm below umbilicus, inc c/d/i Extrem: Right lower extremity: no edema Left lower extremity: no edema Other: no calf tenderness
[2021-12-20 12:35] VITALS: BP 134/76; PULSE 72; RESP 16; TEMP 36.8; O2SAT 100
[2021-12-20 20:40] VITALS: BP 129/67; PULSE 64; RESP 16; TEMP 36.4; O2SAT 98
[2021-12-21] MEDS: HYDROcodone/acetaminophen (*CRX) 5-325 MG TABLET 1 TAB PO ×2 (03:56→10:01)
[2021-12-21] MEDS: IBUPROFEN 600 MG TABLET PO ×2 (03:57→10:00)
[2021-12-21 04:00] VITALS: BP 130/86; PULSE 80; RESP 18; TEMP 36.8
[2021-12-21 07:40] VITALS: BP 125/83; PULSE 75; RESP 18; TEMP 37.1; O2SAT 100
--- NOTE | 2021-12-21 08:29 | PM.OBPNVD ---
OB - PN: Subj Subjective Date/time seen: 12/21/21 08:29 Patient doing well this morning. Pain well controlled medication. Denies any headache, chest pain, shortness of breath, nausea, vomiting, right upper quadrant tenderness, or visual disturbances. Tolerating p.o. diet. Ambulating without difficulty. Voiding well. Passing flatus. OB - PN: Obj Data Labs CBC & Chem 7: 12/20/21 03:49 OB - PN A/P Assessment and Plan (1) Delivery by section using transverse incision of lower segment of uterus: Code(s): O82 - Encounter for delivery without indication Status: Acute Assessment and Plan: POD#2 doing well continue routine postoperative care dc home in stable condition emergency precautions reviewed f/u in office in 1 week for BP check Time Spent With Patient Time: Total time spent is greater than 50% in coordination of care (as documented) at patient's floor/unit and/or counseling patient: Exam Const: General: cooperative, healthy appearing, comfortable and no acute distress GI: Inspection: non-distended GI Palp: Yes Soft to palpation and No Tenderness to palpation present (GI) Other: inc c/d/i Neuro: General: patient oriented x3 Extrem: Right lower extremity: no edema Left lower extremity: no edema Other: no calf tenderness
--- NOTE | 2021-12-21 08:35 | P.DS_ITS ---
DS: Admitting Diagnosis Discharge Date 12/21/2021 Admitting Diagnosis IUP at 37w2d previous C/S x 1 di/di twin gestation gestational hypertension OB - DS: Summary OB Procedures : PIH Mgmt OB Procedures Intrapartum: OB Procedures: : None Peripartum Data Procedures: Procedures Operation Date: 12/19/21 07:30 Actual Procedure Side Surgeon p Repeat Section- Twins Anya Castorena MD Time Spent with Patient Time attestation: Total time spent providing and/or coordinating discharge services: DS: Data Data Completed and Pending Pending studies at discharge: Pending at discharge 12/19/21 08:05 Surgical [PTH] Routine Discharge Plan Discharge Attending physician on discharge: Anya Castorena Discharging Clinician: Anya Castorena Anticipated Discharge Date/Time: 12/21/21 08:35 Patient Disposition: Home, Self-Care Activity: may drive after 2 weeks and pelvic rest Diet: regular Discharge Instructions: Call office ([phone]) to schedule the following appointments: 1. Blood pressure check in 1 week. 2. Postoperative/wound check in 2 weeks. 3. visit in 4-6 weeks. You may take Ibuprofen 600mg every 6 hours as needed for pain. I have sent a prescription for a stronger pain medication, [place], to your pharmacy. You may take this as prescribed for breakthrough pain (pain that is not controlled with Ibuprofen). No driving for at least two weeks. You also may not drive while taking narcotics. Pain medication may make you constipated. It may be helpful to take an mokw-tff-lxorrtj stool softener, such as Colace and/or Senokot, along with the pain medication to help lessen constipation. Call office or go to ED for pain not controlled with medication, headache, chest pain, shortness of breath, fever, chills, persistent nausea or vomiting, severe abdominal pain, heavy vaginal bleeding >2 pads/hour, foul vaginal discharge or odor, any redness near incision, severe pain, pus or drainage from incision site, or problems with your breasts. Patient Instructions: Antibiotic Form Stand Alone Forms: General Discharge Information Follow-up/Referrals: Ayna Castorena MD [Physician] - Discharge Medications: New hydrocodone-acetaminophen 5-325 mg Tablet 1 - 2 tablet PO Q4-6H PRN (Reason: Moderate Pain (4-6)) Qty: 30 RF: 0 Continued prenat.vits,lupis,baa-qfca-hswww Tablet 1 tablet PO DAILY RF: 0 folic acid 1 mg tablet 1 mg PO DAILY RF: 0 ferrous sulfate [Feosol] 325 mg (65 mg iron) tablet 325 mg PO DAILY RF: 0 Discontinued aspirin [Aspirin Low-Strength] 81 mg Tablet,Chewable 162 mg PO DAILY RF: 0 Date of admission: 12/19/21 05:37 Primary Care Provider: Jesus,Carlos Jean-Baptiste Admitting Provider: Anya Castorena Attending physician on admission: Anya Castorena Condition: Stable
[2021-12-21] MEDS: MULTIVIT/MIN/PREN/FOL AC/IRON TABLET 1 TAB PO (10:00)
[2021-12-21] MEDS: DOCUSATE SODIUM 100 MG CAPSULE PO (10:00)
[2021-12-21] MEDS: FERROUS SULFATE 324 MG TABLET PO (10:00)
[2021-12-21] MEDS: FOLIC ACID 1 MG TABLET PO (10:00)
--- NOTE | 2021-12-21 10:00 | PC.NURSE ---
Patient viewed the discharge video Mother & Baby Care, The First Two Weeks . Patient was given the opportunity and encouraged to ask questions. Patient verbalized understanding of information shared and has been given the mother/baby guide for home reference.
[2021-12-21] MEDS: MEASLES,MUMPS,RUBELLA VACCINE 0.5 ML VIAL SUB-Q (10:02)
--- NOTE | 2021-12-21 10:57 | PC.NURSE ---
0754 - Mother led conversation with regards to her plan for feeding her babies. Reviewed good handwashing to prevent infection. Infants have had adequate bottle feedings in the past 24 hours and meets the outcomes for weight, output and jaundice. Mother states she feels confident to continue feeding her infant at home. Reinforced teaching pumping frequency for production of human milk, transition of milk, signs of adequate intake and engorgement prevention/relief and when to call the infant care provider with added referrencing with the mom and baby guide. Community resources and outpatient services reviewed as listed on the feeding sheet, mom and baby guide and [facility] website. Reinforced feeding cues with responsive feeding and how to stimulate to initiate feeding three hours from the start of the last feeding. Mother voiced understanding of information shared. Reported to primary RN.
[2021-12-22 11:10] VITALS: BP 136/72; PULSE 87; RESP 20; TEMP 37.1; O2SAT 99
== END 2021-12-21 12:15 | disposition home or self-care (01) | DRG 540 ==
LOC: ANHLDR 05:41 → ANHOB2 11:13
PROVIDERS: Admitting Provider Student in an Organized Health Care Education/Training Program; PCP Family Medicine; Visit Provider Student in an Organized Health Care Education/Training Program
PROC: 10D00Z1 Extraction of Products of Conception, Low, Open Approach (ICD-10-PCS; CPT 59514; principal; 2021-12-19 07:30)
DX: O30.043 Twin pregnancy, dichorionic/diamniotic, third trimester (principal); O34.219 Maternal care for unspecified type scar from previous cesarean delivery; O13.4 Gestational [pregnancy-induced] hypertension without significant proteinuria, complicating childbirth; O32.1XX2 Maternal care for breech presentation, fetus 2; O69.1XX2 Labor and delivery complicated by cord around neck, with compression, fetus 2; Z3A.37 37 weeks gestation of pregnancy; Z37.2 Twins, both liveborn
CPT/HCPCS: 36415; 85025; 88307; 90710; A9270; J0131; J1200; J1885; J2274; J2405; J2590; J7120

== ENCOUNTER 2022-03-03 04:37 | Emergency (ER) | payer OTHER, SELFPAY ==
[2022-03-03] VITALS (11 sets, daily range): BP systolic 117–132; BP diastolic 66–80; PULSE 72–80; RESP 16; TEMP 36.6; O2SAT 100
--- NOTE | 2022-03-03 04:50 | ED.ABDPAIN ---
HPI - Abdominal Pain General Chief Complaint: Unspecified Stated Complaint: PAINFUL TO BREATHE Time Seen by Provider: 03/03/22 04:39 Source: patient and family Mode of arrival: ambulatory Limitations: no limitations History of Present Illness HPI narrative: 21-year-old female presented to emergency department for evaluation of epigastric pain. Patient has been having the pain intermittently. Patient did have follow-up with an outside hospital a few days ago for similar symptoms. Patient states she did have a chest CT lower extremity Doppler chest x-ray and labs and was told that everything looked fine. Patient states that last night she did have some pizza prior to going to bed and woke up in the morning with epigastric pain. Patient denies any prior history of heartburn. Patient denies any prior history of gallbladder disease. Related Data Allergies Allergy/AdvReac Type Severity Reaction Status Date / Time No Known Allergies Allergy Verified 01/31/22 13:00 Review of Systems Review of Systems: CONSTITUTIONAL: Denies fever, chills, or sweats. ENT: Denies rhinorrhea, congestion, sore throat, or otalgia. CARDIOVASCULAR: Denies chest pain, palpitations, or edema. RESPIRATORY: Denies cough or dyspnea. GASTROINTESTINAL: Epigastric abdominal pain GENITOURINARY: Denies dysuria or hematuria. SKIN: Denies rash or itching. MUSCULOSKELETAL: Denies back pain, joint pain, or myalgia. NEUROLOGIC: Denies headache, numbness, or weakness. All systems reviewed & are unremarkable except as noted in HPI and below PMFSH Past Medical History Medical History (Updated 03/04/22 @ 00:00 by Background Daemon) Bacterial meningitis History of miscarriage x 1 History of pre-eclampsia 2019 Surgical History Surgical History (Updated 01/31/22 @ 13:02 by Alyssa Shannon MA) Previous section 2019 for failure to progress 12/19/21 Twins Family History Family History Mother Depression Social History Social History Smoking status: Never smoker Alcohol intake: never Substance use: never Spiritual care concerns: No Exam Narrative: APPEARANCE: Well appearing, no pain, no distress, well-nourished. HEAD: normocephalic, atraumatic. EYES: PERRLA/EOMI, conjunctivae clear. NOSE: Normal no drainage THROAT: Pharynx clear, no exudate. NECK: Supple. No adenopathy, no masses. RESPIRATORY: Airway patent, respirations nonlabored. Clear to auscultation bilaterally, no rales, rhonchi, wheezing. CARDIOVASCULAR: Regular rate and rhythm without murmurs rubs or gallops. ABDOMINAL: Epigastric tenderness to palpation. MUSCULOSKELETAL: Moves all extremities. Strength/ROM intact, No edema, No calf tenderness. NEURO: Alert. Cranial nerves II through XII intact. Grossly intact SKIN: Warm, dry. Normal Color Course Course Emergency Course: Patient felt improved after the GI cocktail. Patient was updated on the results of her work-up. Patient was encouraged to have close follow-up with GI. All questions and concerns were addressed. Vital Signs Vital signs: Vital Signs Temperature 97.8 F 03/03/22 04:52 Pulse Rate 80 03/03/22 04:52 Respiratory Rate 16 03/03/22 04:52 Blood Pressure 132/79 03/03/22 04:52 Pulse Oximetry 100 03/03/22 04:52 Temperature 97.8 F 03/03/22 04:52 Pulse Rate 72 03/03/22 05:50 Respiratory Rate 16 03/03/22 05:50 Blood Pressure 117/66 03/03/22 05:50 Pulse Oximetry 100 03/03/22 05:50 MDM - Abdominal Pain Differential Diagnosis Differential diagnosis: Likely abdominal pain and gastroenteritis Discharge Plan Discharge Clinical Impression: Acute epigastric pain Patient Disposition: Home, Self-Care Condition: Stable Instructions: Antibiotic Form, Diet for Stomach Ulcers and Gastritis (ED), Esophageal Spasm (ED) Additional Instructions: Omeprazole as dire
[2022-03-03] MEDS: BELLADONNA ALK/PHENOB ELIX 10 ML, MAG HYDROX/ALUMINUM HYD/SIMETH 30 ML, LIDOCAINE HCL 2... PO (05:01)
[2022-03-03] MEDS: PANTOPRAZOLE 40 MG TABLET PO (05:47)
== END 2022-03-03 05:50 | disposition home or self-care (01) ==
PROVIDERS: Emergency Provider Emergency Medicine; PCP Family Medicine
DX: R10.13 Epigastric pain (principal)
CPT/HCPCS: 99283; A9270

== ENCOUNTER 2022-04-01 14:06 | Emergency (ER) | payer OTHER, SELFPAY ==
[2022-04-01] VITALS (8 sets, daily range): BP systolic 117–142; BP diastolic 73–84; PULSE 66–89; RESP 13–24; O2SAT 99–100
--- NOTE | ~2022-04-01 | US_ITS ---
EXAMINATION: US right upper quadrant DATE: 04/01/2022 14:52 INDICATION: Epigastric pain. TECHNIQUE: Multiple grayscale and Doppler ultrasound images of the abdomen were obtained. COMPARISON: None available FINDINGS: Partial obscuration of pancreas, visualized portions are normal. The liver is normal with n ormal echogenicity and echotexture. No surface nodularity. Normal hepatopetal flow in the main portal vein. Shadowing gallbladder foci, gallbladder is contracted. No wall thickening or pericholecystic f luid. The normal common bile duct measures 0.4 cm. There was no sonographic Faye sign. The visualiz ed portions of the aorta and inferior vena cava are normal. IMPRESSION: 1. Cholelithiasis. No sonographic evidence of acute cholecystitis. Reviewed, dictated and finalized at location K.
--- NOTE | ~2022-04-01 | XR_ITS ---
EXAMINATION: XR chest 2V Exam Date/Time: 04/01/2022 14:20 CDT CLINICAL HISTORY: sob, chest pain, tightness Comparison: 03/07/22. RESULT: Lines, tubes, and devices: None. Lungs and pleura: Clear. Cardiomediastinal silhouette: Stable cardiomediastinal silhouette. Other: No acute osseous or upper abdominal finding. IMPRESSION: No acute cardiopulmonary process Reviewed, dictated and finalized at location K.
--- NOTE | 2022-04-01 14:14 | ECG_ITS ---
Measurements Intervals [place] Rate: 69 P: 31 SD: 156 QRS: 34 QRSD: 86 T: 21 QT: 373 QTc: 401 Interpretive Statements SINUS RHYTHM BASELINE ARTIFACT- I, II, III, AVR, AVL, AVF, V2-V3, V5 NORMAL ECG Electronically Signed On 04-01-2022 18:55:25 CDT by Suraj Taylor D.O.
--- NOTE | 2022-04-01 14:21 | ED.CHESTPAIN ---
HPI - Chest Pain General Chief Complaint: Chest Pain Stated Complaint: chest pain Time Seen by Provider: 04/01/22 14:11 History of Present Illness HPI narrative: Patient is a 21-year-old female who presents ER with concerns for chest pain. Patient reports symptoms began 5 minutes ago. She was in the break room upstairs eating when she developed pain in her epigastric/sternal region. It radiates to her back. Mild nausea. She has had this 3 other times and has been told that its anxiety or acid reflux. She denies any dyspepsia at this moment. She was eating ham and other items at a potluck. Related Data Home Medications Medication Instructions Recorded Confirmed No Home Medications 04/01/22 04/01/22 Allergies Allergy/AdvReac Type Severity Reaction Status Date / Time No Known Allergies Allergy Verified 01/31/22 13:00 Review of Systems Review of Systems: All systems reviewed & are unremarkable except as noted in HPI and below Constitutional: Constitutional: Denies chills, Denies fever(s) and Denies weakness ENT: Denies nasal congestion and Denies sore throat Cardiovascular: Cardiovascular: Reports chest pain, Denies rapid heart rate and Denies radiating jaw, neck or arm pain Respiratory: Respiratory: Denies cough, Denies dyspnea and Denies wheezing Gastrointestinal: Gastrointestinal: Reports abdominal pain, Denies diarrhea, Reports nausea and Denies vomiting PMFSH Past Medical History Medical History (Updated 04/01/22 @ 15:39 by Abraham Hamilton MD) Bacterial meningitis History of miscarriage x 1 History of pre-eclampsia 2019 Surgical History Surgical History (Updated 01/31/22 @ 13:02 by Alyssa Shannon MA) Previous section 2019 for failure to progress 12/19/21 Twins Family History Family History Mother Depression Social History Social History Smoking status: Never smoker Alcohol intake: never Substance use: never Spiritual care concerns: No Exam Narrative: GENERAL: Well-appearing, well-nourished, and in no acute distress. HEAD: Normocephalic, atraumatic. NECK: Supple. CHEST: Clear to auscultation. No respiratory distress. HEART: Regular rate and rhythm. Normal peripheral pulses. ABDOMEN: Soft, mild epigastric tenderness, nondistended, normal active bowel sounds. EXTREMITIES: Normal range of motion. No edema. SKIN: Warm, dry, no rash. NEURO: Alert and oriented x3. PSYCH: Normal mood and affect. Course Course Emergency Course: Patient informed of results. Discussed low-fat diet and need for follow-up with general surgery. Patient verbalized understanding. Vital Signs Vital signs: Vital Signs Pulse Rate 84 04/01/22 14:10 Respiratory Rate 20 04/01/22 14:10 Blood Pressure 142/84 H 04/01/22 14:10 Pulse Oximetry 100 04/01/22 14:10 Pulse Rate 70 04/01/22 15:30 Respiratory Rate 24 H 04/01/22 15:30 Blood Pressure 117/73 04/01/22 15:01 Pulse Oximetry 100 04/01/22 15:30 MDM - Chest Pain Lab Data Result diagrams: 04/01/22 14:17 04/01/22 14:17 Labs: Lab Results 04/01/22 04/01/22 04/01/22 Range/Units 14:17 14:17 14:17 WBC 12.1 H (4.5-10.0) K/mm3 RBC 4.43 (4.2-5.4) M/mm3 Hgb 11.7 L (12.0-15.0) g/dL Hct 37.7 (37.0-47.0) % MCV 85.1 (80-100) fl MCH 26.4 (26-34) pg MCHC 31.0 L (32-36) g/dl RDW 12.7 (11.5-14.5) % Plt Count 302 D (150-375) k/mm3 MPV 10.1 (7.4-10.4) fl Immature Gran % (Auto) 0.2 (0-0.5) % Neut % (Auto) 54.0 (45.5-73.1) % Lymph % (Auto) 34.5 (18.3-44.2) % [place] % (Auto) 7.9 (2.6-8.5) % Eos % (Auto) 2.9 (0-4.4) % Baso % (Auto) 0.5 (0.2-1.2) % Lymph # (Auto) 4.18 H (0.9-3.2) K/mm3 [place] # (Auto) 1.0 H (0.1-0.6) K/mm3 Eos # (Auto) 0.4 H (0-0.3) K/mm3 Baso # (Auto) 0.1 (0.0-
[2022-04-01 14:22] LABS: Basophils Absolute Auto 0.1 K/mm3 (0.0-0.1); Basophils Percent Auto 0.5 % (0.2-1.2); Eosinophils Absolute Auto 0.4 K/mm3 (0-0.3); Eosinophils Percent Auto 2.9 % (0-4.4); Hematocrit 37.7 % (37.0-47.0); Hemoglobin 11.7 g/dL (12.0-15.0); Immature Granulocyte Absolute 0.03 K/mm3 (0.00-0.031); Immature Granulocyte Percent A 0.2 % (0-0.5); Lymphocytes Absolute Auto 4.18 K/mm3 (0.9-3.2); Lymphocytes Percent Auto 34.5 % (18.3-44.2); Mean Corpuscular Hemoglobin 26.4 pg (26-34); Mean Corpuscular Volume 85.1 fl (80-100); Mean Platelet Volume 10.1 fl (7.4-10.4); Monocytes Percent Auto 7.9 % (2.6-8.5); Neutrophils Absolute Auto 6.6 K/mm3 (1.3-6.7); Platelet Count Result 302 k/mm3 (150-375); Red Blood Count 4.43 M/mm3 (4.2-5.4); Red Cell Distribution Width 12.7 % (11.5-14.5); White Blood Count 12.1 K/mm3 (4.5-10.0)
[2022-04-01 14:33] LABS: Alanine Aminotransferase 30 U/L (6-35); Albumin Level 4.5 g/dL (3.5-5.1); Alkaline Phosphatase 60 U/L (38-126); Anion Gap 8 mmol/L (8-16); Aspartate Amino Transferase 40 U/L (14-36); Bilirubin,Total 0.5 mg/dL (0.2-1.3); Blood Urea Nitrogen 13 mg/dL (7-17); Calcium 9.3 mg/dL (8.4-10.2); Carbon Dioxide 27 mmol/L (22-30); Chloride 100 mmol/L (98-107); Estimated CRCL calculation 177 ml/min; Estimated Glomerular Filt Rate > 60; Glucose 87 mg/dL (65-110); Lipase 118 U/L (23-300); Potassium 3.8 mmol/L (3.4-5.0); Sodium 135 mmol/L (137-145)
[2022-04-01 14:37] LABS: INR 1.1; Prothrombin Time 13.9 Seconds (11.1-14.7)
[2022-04-01 14:38] LABS: Partial Thromboplastin Time 28.8 SECONDS (22.3-36.8)
[2022-04-01 14:47] LABS: Troponin I < 0.012 ng/mL (0.000-0.034)
[2022-04-01] MEDS: ASPIRIN 81 MG CHEWABLE TABLET 324 MG PO (14:59)
[2022-04-01] MEDS: ONDANSETRON INJ 4 MG/2 ML VIAL IV PUSH (15:00)
[2022-04-01] MEDS: MORPHINE SULFATE (*CRX) 4 MG/ML INJ IV PUSH (15:00)
== END 2022-04-01 16:00 | disposition home or self-care (01) ==
PROVIDERS: Emergency Provider Emergency Medicine; PCP Family Medicine
DX: K80.20 Calculus of gallbladder without cholecystitis without obstruction (principal)
CPT/HCPCS: 36415; 71046; 76705; 80053; 83690; 84484; 85025; 85610; 85730; 93005; 96374; 96375; 99284; A9270; J2270; J2405

== ENCOUNTER 2022-04-20 13:33 | Outpatient (CLI) | payer OTHER, SELFPAY ==
[2022-04-20 14:25] LABS: Hemoglobin A1C 5.1 % (<5.7)
[2022-04-20 16:40] LABS: Cholesterol 193 mg/dL (0-200); Glucose 96 mg/dL (65-110); HDL Direct 37 mg/dL; Triglycerides 104 mg/dL (<150)
[2022-04-20 17:00] LABS: LDL Cholesterol Direct 112 mg/dL
[2022-04-20 17:59] LABS: Thyroid Stimulating Hormone 0.715 uIU/mL (0.465-4.680)
[2022-04-20 19:13] LABS: Iron 46 ug/dL (37-170)
[2022-04-20 19:30] LABS: Free T4 Free Thyroxine 1.25 ng/mL (0.78-2.19)
== END 2022-04-20 13:34 | disposition home or self-care (01) ==
LOC: ANHLAB 13:36
PROVIDERS: PCP Family Medicine; Visit Provider Family Medicine
DX: R73.9 Hyperglycemia, unspecified (principal); D64.9 Anemia, unspecified; L65.9 Nonscarring hair loss, unspecified
CPT/HCPCS: 36415; 80061; 82306; 82607; 82728; 82947; 83036; 83540; 84439; 84443

== ENCOUNTER 2022-06-25 15:48 | Outpatient (CLI) | payer OTHER, SELFPAY ==
--- NOTE | ~2022-06-25 | US_ITS ---
EXAMINATION: US OB <= 14 weeks fetus DATE: 06/25/2022 16:14 INDICATION: Establish dating and viability of during first trimester TECHNIQUE: Real-time pelvic ultrasound utilizing both a transvaginal and transabdominal probe was pe rformed. The interpreting radiologist was not present for the study. COMPARISON: None. FINDINGS: The uterus measures 12.5 x 6.0 x 8.4 cm. There is an intrauterine gestational sac. A yolk sac and fe jose pole are identified. The crown rump length measures 3.1, which correlates with an estimated gesta tional age of 10 weeks and 0 days. heart motion is identified measuring 169 beats per minute (b pm) by M-mode Doppler. The right ovary measures 3.1 x 1.8 x 2.3 cm. The left ovary measures 2.9 x 2.9 x 1.5 cm. Mass or flui d identified in both ovaries on color Doppler. There is no free fluid in the pelvis. IMPRESSION: 1. Single living fetus with heart rate of 169 bpm. 2. Gestational age by ultrasound of 10 weeks 0 day(s) +/- 6 day(s) with ultrasound estimated date of delivery (THO) of 01/21/2023. Reviewed, dictated and finalized at location A. IMPRESSION: 1. Single living fetus with heart rate of 169 bpm. 2. Gestational age by ultrasound of 10 weeks 0 day(s) +/- 6 day(s) with ultras ound estimated date of delivery (THO) of 01/21/2023.
== END 2022-06-25 15:49 | disposition home or self-care (01) ==
PROVIDERS: PCP Student in an Organized Health Care Education/Training Program; Visit Provider Student in an Organized Health Care Education/Training Program
DX: Z36.87 Encounter for antenatal screening for uncertain dates (principal); Z3A.10 10 weeks gestation of pregnancy
CPT/HCPCS: 76801

== ENCOUNTER 2022-08-10 11:00 | Outpatient (CLI) | payer OTHER, SELFPAY ==
[2022-08-10 11:32] LABS: Basophils Percent Auto 0.3 % (0.2-1.2); Eosinophils Absolute Auto 0.2 K/mm3 (0-0.3); Eosinophils Percent Auto 1.9 % (0-4.4); Hematocrit 33.6 % (37.0-47.0); Hemoglobin 10.9 g/dL (12.0-15.0); Immature Granulocyte Absolute 0.04 K/mm3 (0.00-0.031); Immature Granulocyte Percent A 0.4 % (0-0.5); Lymphocytes Absolute Auto 1.69 K/mm3 (0.9-3.2); Lymphocytes Percent Auto 17.9 % (18.3-44.2); Mean Corpuscular HGB Conc 32.4 g/dl (32-36); Mean Corpuscular Hemoglobin 26.6 pg (26-34); Monocytes Absolute Auto 0.8 K/mm3 (0.1-0.6); Monocytes Percent Auto 8.4 % (2.6-8.5); Neutrophils Absolute Auto 6.7 K/mm3 (1.3-6.7); Neutrophils Percent Auto 71.1 % (45.5-73.1); Platelet Count Result 226 k/mm3 (150-375); Red Cell Distribution Width 13.1 % (11.5-14.5); White Blood Count 9.5 K/mm3 (4.5-10.0)
[2022-08-10 12:18] LABS: Vitamin D 25 Hydroxy 19.9 ng/mL
[2022-08-10 12:35] LABS: Hepatitis B Surface Antigen Negative (Negative); Rubella IgG Antibody 44.9 IU/ML
[2022-08-10 12:41] LABS: HIV 1/2 Ab P24 Ag Result Negative (Negative)
[2022-08-10 12:49] LABS: Hepatitis C Virus Antibody Negative (Negative)
[2022-08-10 13:00] LABS: Thyroid Stimulating Hormone 0.888 uIU/mL (0.465-4.680)
[2022-08-10 13:46] LABS: Rapid Plasma Reagin Non-Reactive (NonReactive)
== END 2022-08-10 11:01 | disposition home or self-care (01) ==
LOC: ANHLAB 11:02
PROVIDERS: PCP Student in an Organized Health Care Education/Training Program; Referring Provider Student in an Organized Health Care Education/Training Program; Visit Provider Student in an Organized Health Care Education/Training Program
DX: Z34.81 Encounter for supervision of other normal pregnancy, first trimester (principal); Z3A.00 Weeks of gestation of pregnancy not specified
CPT/HCPCS: 36415; 82306; 84443; 85025; 86592; 86703; 86762; 86787; 86803; 86850; 86900; 86901; 87086; 87088; 87340; G0432

== ENCOUNTER 2022-10-26 09:23 | Outpatient (CLI) | payer OTHER, SELFPAY ==
[2022-10-26 11:09] LABS: Basophils Percent Auto 0.4 % (0.2-1.2); Eosinophils Absolute Auto 0.1 K/mm3 (0-0.3); Eosinophils Percent Auto 1.1 % (0-4.4); Hematocrit 31.9 % (37.0-47.0); Hemoglobin 10.3 g/dL (12.0-15.0); Immature Granulocyte Absolute 0.07 K/mm3 (0.00-0.031); Immature Granulocyte Percent A 0.7 % (0-0.5); Lymphocytes Absolute Auto 1.91 K/mm3 (0.9-3.2); Lymphocytes Percent Auto 20.4 % (18.3-44.2); Mean Corpuscular HGB Conc 32.3 g/dl (32-36); Mean Corpuscular Hemoglobin 26.7 pg (26-34); Mean Corpuscular Volume 82.6 fl (80-100); Mean Platelet Volume 10.4 fl (7.4-10.4); Monocytes Absolute Auto 0.7 K/mm3 (0.1-0.6); Monocytes Percent Auto 7.5 % (2.6-8.5); Neutrophils Absolute Auto 6.6 K/mm3 (1.3-6.7); Neutrophils Percent Auto 69.9 % (45.5-73.1); Platelet Count Result 236 k/mm3 (150-375); Red Blood Count 3.86 M/mm3 (4.2-5.4); Red Cell Distribution Width 12.3 % (11.5-14.5); White Blood Count 9.4 K/mm3 (4.5-10.0)
[2022-10-26 11:24] LABS: Glucose 1 Hour PP 50gm Dose 126 mg/dL
== END 2022-10-26 09:24 | disposition home or self-care (01) ==
LOC: ANHLAB 09:25
PROVIDERS: PCP Student in an Organized Health Care Education/Training Program; Visit Provider Student in an Organized Health Care Education/Training Program
DX: Z34.82 Encounter for supervision of other normal pregnancy, second trimester (principal); Z3A.00 Weeks of gestation of pregnancy not specified
CPT/HCPCS: 36415; 82947; 85025

== ENCOUNTER 2022-11-30 13:06 | Outpatient (CLI) | payer OTHER, SELFPAY ==
[2022-11-30 13:26] LABS: Basophils Percent Auto 0.3 % (0.2-1.2); Eosinophils Absolute Auto 0.1 K/mm3 (0-0.3); Eosinophils Percent Auto 1.1 % (0-4.4); Hematocrit 31.7 % (37.0-47.0); Hemoglobin 10.1 g/dL (12.0-15.0); Immature Granulocyte Absolute 0.08 K/mm3 (0.00-0.031); Immature Granulocyte Percent A 0.7 % (0-0.5); Lymphocytes Absolute Auto 2.22 K/mm3 (0.9-3.2); Lymphocytes Percent Auto 20.8 % (18.3-44.2); Mean Corpuscular HGB Conc 31.9 g/dl (32-36); Mean Corpuscular Hemoglobin 25.1 pg (26-34); Mean Corpuscular Volume 78.9 fl (80-100); Mean Platelet Volume 10.3 fl (7.4-10.4); Monocytes Percent Auto 9.7 % (2.6-8.5); Neutrophils Absolute Auto 7.2 K/mm3 (1.3-6.7); Neutrophils Percent Auto 67.4 % (45.5-73.1); Platelet Count Result 246 k/mm3 (150-375); Red Blood Count 4.02 M/mm3 (4.2-5.4); Red Cell Distribution Width 12.3 % (11.5-14.5); White Blood Count 10.7 K/mm3 (4.5-10.0)
[2022-11-30 14:37] LABS: HIV 1/2 Ab P24 Ag Result Negative (Negative)
[2022-12-03 09:22] LABS: Rapid Plasma Reagin Non-Reactive (NonReactive)
== END 2022-11-30 13:07 | disposition home or self-care (01) ==
LOC: ANHLAB 13:07
PROVIDERS: PCP Student in an Organized Health Care Education/Training Program; Visit Provider Student in an Organized Health Care Education/Training Program
DX: Z34.83 Encounter for supervision of other normal pregnancy, third trimester (principal); Z3A.00 Weeks of gestation of pregnancy not specified
CPT/HCPCS: 36415; 85025; 86592; 86703; G0432

== ENCOUNTER 2022-12-24 15:17 | Outpatient (CLI) | payer OTHER, SELFPAY ==
[2022-12-24] VITALS (8 sets, daily range): BP systolic 123–175; BP diastolic 62–152; PULSE 87–128
--- NOTE | ~2022-12-24 | US_ITS ---
EXAMINATION: US OB limited DATE: 12/24/2022 16:44 INDICATION: induced hypertension TECHNIQUE: Real-time ultrasound of the pelvis was performed. The interpreting radiologist was not pre sent for the study. COMPARISON: None. FINDINGS: There is a single living fetus in vertex presentation. The placenta is fundal. cardia c activity and movement are noted. heart rate is 137 beats per minute (bpm). The amniotic fluid index is 20.8 cm which is normal (normal range: 7.9 cm to 24.9 cm). IMPRESSION: 1. Single living fetus in vertex presentation. 2. Normal amniotic fluid index. Reviewed, dictated and finalized at location B. FEEDER
[2022-12-24 15:55] LABS: Basophils Absolute Auto 0.1 K/mm3 (0.0-0.1); Basophils Percent Auto 0.5 % (0.2-1.2); Eosinophils Absolute Auto 0.1 K/mm3 (0-0.3); Eosinophils Percent Auto 0.9 % (0-4.4); Hematocrit 30.3 % (37.0-47.0); Hemoglobin 9.5 g/dL (12.0-15.0); Immature Granulocyte Percent A 0.9 % (0-0.5); Lymphocytes Absolute Auto 2.53 K/mm3 (0.9-3.2); Lymphocytes Percent Auto 23.3 % (18.3-44.2); Mean Corpuscular HGB Conc 31.4 g/dl (32-36); Mean Corpuscular Hemoglobin 23.9 pg (26-34); Mean Corpuscular Volume 76.1 fl (80-100); Mean Platelet Volume 10.3 fl (7.4-10.4); Monocytes Absolute Auto 1.1 K/mm3 (0.1-0.6); Monocytes Percent Auto 10.3 % (2.6-8.5); Neutrophils Percent Auto 64.1 % (45.5-73.1); Platelet Count Result 223 k/mm3 (150-375); Red Blood Count 3.98 M/mm3 (4.2-5.4); Red Cell Distribution Width 12.5 % (11.5-14.5); White Blood Count 10.9 K/mm3 (4.5-10.0)
[2022-12-24 15:57] LABS: Appearance Urine Slightly Cloudy (Clear); Bilirubin Urine Negative (Negative); Blood Urine Negative (Negative); Color Urine Yellow (Yellow); Glucose Urine UA Negative (Negative); Ketones Urine Trace mg/dL (Negative); Leukocyte Esterase Ur Negative LEU/UL (NEGATIVE); Nitrate Urine Negative (Negative); Protein Urine 2+ mg/dL (Negative); Specific Grav Ur >= 1.030 (1.001-1.035); pH Urine 6.5 (5.0-9.0)
[2022-12-24 16:01] LABS: Bacteria Urine Trace /hpf; Mucus Urine Heavy /lpf; Squamous Epithelial Cell Urine Many /hpf (Few); WBC Urine 0-3 /hpf (0-3)
[2022-12-24 16:07] LABS: Add Urine Microscopic? YES
[2022-12-24 16:08] LABS: Alanine Aminotransferase 15 U/L (6-35); Albumin Level 3.6 g/dL (3.5-5.1); Alkaline Phosphatase 95 U/L (38-126); Anion Gap 5 mmol/L (8-16); Aspartate Amino Transferase 15 U/L (14-36); Bilirubin,Total 0.8 mg/dL (0.2-1.3); Blood Urea Nitrogen 7 mg/dL (7-17); Calcium 8.5 mg/dL (8.4-10.2); Carbon Dioxide 23 mmol/L (22-30); Chloride 104 mmol/L (98-107); Estimated Glomerular Filt Rate > 60; Glucose 106 mg/dL (65-110); Potassium 3.7 mmol/L (3.4-5.0); Sodium 132 mmol/L (137-145); Uric Acid 2.8 mg/dL (2.5-7.5)
[2022-12-24 16:17] LABS: Creatinine Urine 237.9 mg/dL; Total Protein Urine Random 12 mg/dL; Ur Ttl Prot Creatinine Ratio 0.05 mg/mg (0-0.20)
== END 2022-12-24 17:00 | disposition home or self-care (01) ==
LOC: ANHOBOP 15:21 → ANHOBPP 15:21
PROVIDERS: Visit Provider Obstetrics & Gynecology
DX: O13.9 Gestational [pregnancy-induced] hypertension without significant proteinuria, unspecified trimester (principal); Z3A.00 Weeks of gestation of pregnancy not specified
CPT/HCPCS: 36415; 59025; 76815; 80053; 81001; 82570; 84156; 84550; 85025; 87086; 87088; 99199

== ENCOUNTER 2022-12-25 16:53 | Outpatient (NON) | payer OTHER, SELFPAY ==
[2022-12-25 17:54] LABS: Collection Time Urine 24 HOURS
[2022-12-25 17:56] LABS: Total Volume 24 Hour Urine 1300 ml
[2022-12-25 17:57] LABS: Patient Weight 286 Lbs
[2022-12-25 18:14] LABS: Creatinine Clearance Urine 165.8 ml/min (75-125); Creatinine Urine 129.9 mg/dL; Total Protein Urine 24 Hr 169 mg/24hr (28-141); Total Protein Urine Random 13 mg/dL
== END 2022-12-25 16:54 | disposition home or self-care (01) ==
LOC: ANHOBOP 17:00
PROVIDERS: Visit Provider Obstetrics & Gynecology
DX: O13.9 Gestational [pregnancy-induced] hypertension without significant proteinuria, unspecified trimester (principal)
CPT/HCPCS: 81050; 82575; 84156

== ENCOUNTER 2022-12-28 19:31 | Outpatient (CLI) | payer OTHER, SELFPAY ==
[2022-12-28] VITALS (15 sets, daily range): BP systolic 126–174; BP diastolic 64–124; PULSE 78–127; O2SAT 100
[2022-12-28 20:17] LABS: Basophils Absolute Auto 0.1 K/mm3 (0.0-0.1); Basophils Percent Auto 0.5 % (0.2-1.2); Eosinophils Absolute Auto 0.1 K/mm3 (0-0.3); Eosinophils Percent Auto 1.3 % (0-4.4); Hematocrit 31.2 % (37.0-47.0); Hemoglobin 9.8 g/dL (12.0-15.0); Immature Granulocyte Absolute 0.07 K/mm3 (0.00-0.031); Immature Granulocyte Percent A 0.6 % (0-0.5); Lymphocytes Absolute Auto 2.77 K/mm3 (0.9-3.2); Lymphocytes Percent Auto 25.7 % (18.3-44.2); Mean Corpuscular HGB Conc 31.4 g/dl (32-36); Mean Corpuscular Hemoglobin 24.2 pg (26-34); Mean Platelet Volume 10.5 fl (7.4-10.4); Monocytes Absolute Auto 1.2 K/mm3 (0.1-0.6); Monocytes Percent Auto 11.1 % (2.6-8.5); Neutrophils Absolute Auto 6.5 K/mm3 (1.3-6.7); Neutrophils Percent Auto 60.8 % (45.5-73.1); Platelet Count Result 237 k/mm3 (150-375); Red Blood Count 4.05 M/mm3 (4.2-5.4); Red Cell Distribution Width 12.9 % (11.5-14.5); White Blood Count 10.8 K/mm3 (4.5-10.0)
[2022-12-28 20:19] LABS: Appearance Urine Cloudy (Clear); Bilirubin Urine 1+ (Negative); Blood Urine Negative (Negative); Color Urine Yellow (Yellow); Glucose Urine UA Negative (Negative); Ketones Urine Negative (Negative); Leukocyte Esterase Ur Negative LEU/UL (NEGATIVE); Nitrate Urine Negative (Negative); Protein Urine 2+ mg/dL (Negative); Specific Grav Ur >= 1.030 (1.001-1.035)
[2022-12-28 20:23] LABS: Creatinine Urine 311.4 mg/dL; Total Protein Urine Random 13 mg/dL; Ur Ttl Prot Creatinine Ratio 0.04 mg/mg (0-0.20)
[2022-12-28 20:28] LABS: Bacteria Urine Trace /hpf; Mucus Urine Heavy /lpf; Squamous Epithelial Cell Urine Many /hpf (Few); WBC Urine 0-3 /hpf (0-3)
[2022-12-28 20:29] LABS: Add Urine Microscopic? YES; Alanine Aminotransferase 18 U/L (6-35); Albumin Level 3.9 g/dL (3.5-5.1); Alkaline Phosphatase 119 U/L (38-126); Anion Gap 4 mmol/L (8-16); Aspartate Amino Transferase 16 U/L (14-36); Bilirubin,Total 0.7 mg/dL (0.2-1.3); Blood Urea Nitrogen 6 mg/dL (7-17); Calcium 8.6 mg/dL (8.4-10.2); Carbon Dioxide 24 mmol/L (22-30); Chloride 103 mmol/L (98-107); Estimated Glomerular Filt Rate > 60; Glucose 91 mg/dL (65-110); Potassium 3.7 mmol/L (3.4-5.0); Sodium 131 mmol/L (137-145)
--- NOTE | 2022-12-28 21:26 | PC.NURSE ---
called Dr. Schmid notified pt admission for elevated BP. PT BPs measurements were inconsistent running between 120s-170s/ 80-110s. manual BP was 126/90. RN stayed at bedside BP reading was WNL with monitor. Pt states she kept her arm bend as BP machine goes off. Reported PIH lab to Dr. Kirk and made aware BP reading. okay to discharge with Labetalol Rx.
[2022-12-28] MEDS: LABETALOL HCL 100 MG TABLET PO (22:00)
== END 2022-12-28 22:02 | disposition home or self-care (01) ==
LOC: ANHOBOP 19:37 → ANHOBPP 19:41
PROVIDERS: Student in an Organized Health Care Education/Training Program; Visit Provider Obstetrics & Gynecology
DX: O13.9 Gestational [pregnancy-induced] hypertension without significant proteinuria, unspecified trimester (principal); Z3A.00 Weeks of gestation of pregnancy not specified
CPT/HCPCS: 36415; 59025; 80053; 81001; 82570; 84156; 84550; 85025; 87086; 87088; 99199; A9270

== ENCOUNTER 2022-12-31 12:22 | Outpatient (RCR) | payer OTHER, SELFPAY ==
[2022-12-27 08:49] VITALS: PULSE 108
--- NOTE | ~2022-12-31 | US_ITS ---
Pelvic ultrasound. Clinical History: Gestational hypertension, amniotic fluid index evaluation. Third trimester pregnanc y. Technique: Realtime transabdominal scanning of the pelvis was performed. Color flow Doppler and Doppl er spectral analysis were performed. Findings: The uterus is anteverted, and contains an intrauterine gestation. heart rate is 151 b pm. Amniotic fluid index is 14.0. Placenta located towards the fundus. Neither ovary visualized. There is no evidence of free fluid in the cul de sac. Impression: Live intrauterine gestation with heart rate of 151 bpm. Amniotic fluid index is 14.0. Reviewed, dictated and finalized at location . CHER LARD Impression: Live intrauterine gestation with heart rate of 151 bpm. Amniotic fluid index is 14.0.
--- NOTE | ~2022-12-31 | US_ITS ---
EXAMINATION: US OB limited w BPP DATE: 12/31/2022 15:06 INDICATION: Gestational hypertension. Assess biophysical profile, amniotic fluid index during third t rimester . TECHNIQUE: Real-time pelvic ultrasound was performed. The interpreting radiologist was not present fo r the study. COMPARISON: None. FINDINGS: There is a single living fetus in vertex presentation. The placenta is posterior fundal. heart rate is 129 beats per minute (bpm). Normal amniotic fluid index of 10.6 cm (5th%-95%: 7.7-24.9 cm at 36 weeks estimated gestational age) Biophysical profile performed by the technologist: breathing (30 sec sustained breathing in 30 minutes): 2 out of 2 movement (3 gross body movements in 30 minutes): 2 out of 2 tone (one episode of izmockm-ttfkozqdf-cfwsiah limb movement): 2 out of 2 Amniotic fluid pocket (2 cm): 2 out of 2 Total score: 8 out of 8 IMPRESSION: 1. Single living fetus in vertex presentation with heart rate of 129 bpm. 2. Biophysical profile 8 out of 8. 3. Normal amniotic fluid index of 10.6 cm Reviewed, dictated and finalized at location A. RMAN OF THE BOARD
[2022-12-31 14:46] LABS: Basophils Absolute Auto 0.1 K/mm3 (0.0-0.1); Basophils Percent Auto 0.5 % (0.2-1.2); Eosinophils Absolute Auto 0.1 K/mm3 (0-0.3); Eosinophils Percent Auto 1.1 % (0-4.4); Hematocrit 30.8 % (37.0-47.0); Hemoglobin 9.6 g/dL (12.0-15.0); Immature Granulocyte Absolute 0.05 K/mm3 (0.00-0.031); Immature Granulocyte Percent A 0.5 % (0-0.5); Lymphocytes Absolute Auto 2.09 K/mm3 (0.9-3.2); Lymphocytes Percent Auto 21.2 % (18.3-44.2); Mean Corpuscular HGB Conc 31.2 g/dl (32-36); Mean Corpuscular Hemoglobin 24.2 pg (26-34); Mean Corpuscular Volume 77.6 fl (80-100); Mean Platelet Volume 10.9 fl (7.4-10.4); Monocytes Percent Auto 9.9 % (2.6-8.5); Neutrophils Absolute Auto 6.6 K/mm3 (1.3-6.7); Neutrophils Percent Auto 66.8 % (45.5-73.1); Platelet Count Result 229 k/mm3 (150-375); Red Blood Count 3.97 M/mm3 (4.2-5.4); White Blood Count 9.9 K/mm3 (4.5-10.0)
[2022-12-31 14:54] LABS: Alanine Aminotransferase 14 U/L (6-35); Albumin Level 3.5 g/dL (3.5-5.1); Alkaline Phosphatase 115 U/L (38-126); Anion Gap 6 mmol/L (8-16); Aspartate Amino Transferase 18 U/L (14-36); Bilirubin,Total 1.1 mg/dL (0.2-1.3); Blood Urea Nitrogen 5 mg/dL (7-17); Calcium 8.3 mg/dL (8.4-10.2); Carbon Dioxide 25 mmol/L (22-30); Chloride 104 mmol/L (98-107); Estimated Glomerular Filt Rate > 60; Glucose 74 mg/dL (65-110); Potassium 3.9 mmol/L (3.4-5.0); Sodium 135 mmol/L (137-145)
[2022-12-31 15:27] VITALS: BP 118/61; PULSE 93
[2022-12-31 16:13] LABS: Creatinine Urine 155.8 mg/dL; Total Protein Urine Random 14 mg/dL; Ur Ttl Prot Creatinine Ratio 0.09 mg/mg (0-0.20)
== END 2023-02-09 19:46 | disposition home or self-care (01) ==
LOC: ANHOBOP 12:22
PROVIDERS: Visit Provider Obstetrics & Gynecology
DX: O16.3 Unspecified maternal hypertension, third trimester (principal); Z3A.35 35 weeks gestation of pregnancy
CPT/HCPCS: 36415; 59025; 76815; 76819; 80053; 82570; 84156; 84550; 85025; J2274

== ENCOUNTER 2023-01-02 13:23 | Outpatient (RCR) | payer OTHER, SELFPAY ==
--- NOTE | 2023-01-02 14:10 | PTOPEVDC ---
Assessment and note entered by Xuan Erwin DPT Thank you for referring Sherrie Ellis to [facility].? An evaluation has been completed. No further treatment is needed. Evaluation Information Assessment Status Evaluation Subjective Information Pt reports she is 36+4 weeks, will be having a scheduled on 01/04/23. Feels bilateral hip popping with rolling over in bed or sit to stand. Highest pain 10/10 but goes away relatively quickly. Lowest 2/10. Denies back pain. Pain will radiate down to knee for a short period of time. Pt denies n/t. Pt has been 4 times prior, with 2 prior deliveries both by . Pain also with prolonged standing like to do dishes etc . Reported Pain Level Pain Score 4: Self Report Assessment PT Clinical Summary The patient is presenting to skilled therapy with bilateral hip pain at 36 weeks . She presents with decreased hip strength and SIJ impairments which are contributing to her pain with sit to stand, prolonged standing, and rolling over. Due to her scheduled for 01/04/23, plan for discharge this visit. She has been educated in an HEP to continue until surgery and then has been educated to follow MD orders for exercise post-op. She will need a new therapy script to resume at a later date. Plan of Care PT Services Indicated No
== END 2023-01-02 15:10 | disposition home or self-care (01) ==
LOC: ANHGOSHPT 13:23
PROVIDERS: Visit Provider Obstetrics & Gynecology
DX: O26.893 Other specified pregnancy related conditions, third trimester (principal); M25.551 Pain in right hip; M25.552 Pain in left hip; Z3A.36 36 weeks gestation of pregnancy
CPT/HCPCS: 97110; 97162

== ENCOUNTER 2023-01-03 16:58 | Outpatient (CLI) | payer OTHER, SELFPAY ==
[2023-01-03 17:32] LABS: Hemoglobin 10.1 g/dL (12.0-15.0); Mean Corpuscular HGB Conc 30.6 g/dl (32-36); Mean Corpuscular Hemoglobin 24.1 pg (26-34); Mean Corpuscular Volume 78.8 fl (80-100); Platelet Count Result 227 k/mm3 (150-375); Red Blood Count 4.19 M/mm3 (4.2-5.4); Red Cell Distribution Width 13.1 % (11.5-14.5); White Blood Count 10.6 K/mm3 (4.5-10.0)
[2023-01-04 09:32] LABS: Rapid Plasma Reagin Non-Reactive (NonReactive)
== END 2023-01-03 16:59 | disposition home or self-care (01) ==
LOC: ANHLAB 16:59
PROVIDERS: Visit Provider Obstetrics & Gynecology
DX: Z01.812 Encounter for preprocedural laboratory examination (principal)
CPT/HCPCS: 36415; 85027; 86592; 86850; 86900; 86901

== ENCOUNTER 2023-01-04 05:45 | Inpatient (IN) | payer OTHER, SELFPAY ==
--- NOTE | 2022-12-31 13:53 | PC.NURSE ---
Verified with OR schedule and Patient--c/s 01/04/23 at 0730 Patient given requisition for lab draw on 01/03/23
[2023-01-04] VITALS (45 sets, daily range): BP systolic 110–136; BP diastolic 45–89; PULSE 55–91; RESP 13–23; TEMP 36.4–36.9; O2SAT 97–100; BMI 39.3
--- NOTE | 2023-01-04 05:45 | LDADM ---
This patient, Sherrie Ellis, was admitted to Labor/Delivery/Recovery 120 on 01/04/23 at 05:45. Plans for labor, pain management and were discussed with patient. Patient/family oriented to hospital policies and general routines including ID bracelet, bed and alarms, visiting hours, pain management, procedures, bathroom and other care routines, personal items, smoking policy, room service/diet and guest tray routines, infant security routines, and visiting hours. Patient/Family are encouraged to report perceived risks to care and to ask questions if they do not understand what they are told or what they should do. See OBIX for further documentation.
--- NOTE | 2023-01-04 05:53 | P.PNAN_ITS ---
Anes - Eval Pre Procedure Procedure: Operation Date: 01/04/23 07:30 Proposed Procedures p Repeat Section - Mckay Lawler MD Date/Time: 01/04/23 05:53 Surgeon: Nuris Preop Diagnosis: Previous c section Pre Op Diagnosis: C/S Patient Data Age: 22 Gender: F Height: Weight: Allergies Allergy/AdvReac Type Severity Reaction Status Date / Time ondansetron [From Zofran] AdvReac Intermediate NAUSEA/HEAD Verified 12/31/22 13:36 ACHES Home Medications Medication Instructions Recorded Confirmed Type aspirin 81 mg tablet,delayed 81 mg PO DAILY 07/12/22 History release prenat.vits,lupis,rap-sfta-[id number] 1 tablet PO DAILY 09/06/22 History ferrous sulfate 325 mg (65 mg 325 mg PO DAILY #90 tabs 10/26/22 Rx iron) tablet labetalol 100 mg tablet 100 mg PO Q12H 10 days #20 tabs 12/28/22 Rx Patient hx anesthesia problems: none Family hx anesthesia problems: none Results Review: All pre-operative results and documents have been reviewed as part of the pre- operative evaluation. [facility] Past Medical History Medical History Bacterial meningitis Gestational hypertension History of miscarriage x 1 History of pre-eclampsia 2019 and not yet delivered Surgical History Surgical History Previous section 2019 for failure to progress 12/19/21 Tw[place] Family History Family History Mother Anxiety Depression Fibromyalgia Endometriosis Grandparent Lupus Breast cancer Hypertension Social History Social History Smoking status: Current every day smoker Tobacco type: e-cigarettes/vaping Alcohol intake: never Substance use: never Substance use type: does not use Occupation/Education: occupation Additional occupation/education comments: [employer] Gender identity (if verbalized by the patient): Female Spiritual care concerns: No Exam Day of Procedure 01/04/23 05:53 Patient weight: obese and morbidly obese Airway: Mallampati scale class II
--- NOTE | 2023-01-04 05:58 | PM.IMHP ---
H&P: HPI History of Present Illness Date/Time: 01/04/23 05:58 Chief Complaint: Elective repeat cesearean section Narrative: LMP 04/20/22 EDC 01/25/23 c/w 10 week ultrasound. 37 weeks with gestational hypertension and two prior sections here today for scheduled repeat section. Denies headache,scotomata or RUQ pain. Review of Systems Review of Systems: All systems reviewed & are unremarkable except as noted in HPI and below Constitutional: Constitutional: Reports no additional constitutional complaints and Denies headache(s) Eyes: Eyes: Denies spots in vision ENT: Reports system reviewed and no additional complaints, except as documented and Denies headache(s) Cardiovascular: Cardiovascular: Denies chest pain and Denies dyspnea Respiratory: Respiratory: Denies dyspnea Gastrointestinal: Gastrointestinal: Reports no additional gastrointestinal complaints Genitourinary: Genitourinary: Reports amenorrhea Musculoskeletal: Musculoskeletal: Reports no additional musculoskeletal complaints Integumentary/Breasts: Skin/Breast: Denies breast mass and Denies rash Neurologic: Denies headache(s) Psychiatric: Psychiatric: Reports no additional psychiatric complaints [facility] Past Medical History Medical History Bacterial meningitis History of miscarriage x 1 History of pre-eclampsia 2019 Surgical History Surgical History Previous section 2019 for failure to progress 12/19/21 Twins Family History Family History Mother Anxiety Depression Fibromyalgia Endometriosis Grandparent Lupus Breast cancer Hypertension Social History Social History Smoking status: Current every day smoker Tobacco type: e-cigarettes/vaping Alcohol intake: never Substance use: never Substance use type: does not use Occupation/Education: occupation Additional occupation/education comments: [employer] Gender identity (if verbalized by the patient): Female Spiritual care concerns: No Meds Home Medications and Allergies Home Medications Medication Instructions Recorded Confirmed Type aspirin 81 mg tablet,delayed 81 mg PO DAILY 07/12/22 History release prenat.vits,lupis,lxm-xgtp-hhluy 1 tablet PO DAILY 09/06/22 History ferrous sulfate 325 mg (65 mg 325 mg PO DAILY #90 tabs 10/26/22 Rx iron) tablet labetalol 100 mg tablet 100 mg PO Q12H 10 days #20 tabs 12/28/22 Rx Allergies Allergy/AdvReac Type Severity Reaction Status Date / Time ondansetron [From Zofran] AdvReac Intermediate NAUSEA/HEAD Verified 12/31/22 13:36 ACHES Exam Const: General: no acute distress Eyes: General: appearance normal, both eyes and all related structures Resp: Effort & Inspection: normal respiratory effort Cardio: Rate: regular rate GI: Other: Gravid no fundal tenderness no right upper quadrant pain Skin: General skin exam: no rashes or lesions noted Neuro: Cognition (Neuro): normal cognition Extrem: General: normal to inspection Psych: Mental Status: mental status grossly normal Assessment and Plan Assessment and plan (1) Gestational hypertension: Code(s): O13.9 - Gestational [-induced] hypertension without significant proteinuria, unspecified trimester Status: Acute Assessment and Plan: No signs or symptoms of severe disease (2) Previous section complicating : Code(s): O34.219 - Maternal care for unspecified type scar from previous delivery Status: Acute Assessment and Plan: Will proceed with repeat section.
[2023-01-04] MEDS: LACTATED RINGERS 1,000 ML 999 ML IV CONT (06:22)
--- NOTE | 2023-01-04 07:04 | WPDANESEPPF ---
Anes - Initial Pre Proc Eval Procedure: Operation Date: 01/04/23 07:30 Proposed Procedures p Repeat Section - Mckay Lawler MD Date/Time: 01/04/23 07:04 Surgeon: Mckay Lawler MD Pre Op Diagnosis: C/S Patient Data Age: 22 Gender: F Height: 1.8 m Weight: 128 kg Last Vital Signs Pulse 81 01/04/23 07:00 BP 117/66 01/04/23 07:00 Allergies Allergy/AdvReac Type Severity Reaction Status Date / Time ondansetron [From Zofran] AdvReac Intermediate NAUSEA/HEAD Verified 12/31/22 13:36 ACHES Home Medications Medication Instructions Recorded Confirmed Type aspirin 81 mg tablet,delayed 81 mg PO DAILY 07/12/22 01/04/23 History release prenat.vits,lupis,ggs-emjs-bbsmu 1 tablet PO DAILY 09/06/22 01/04/23 History ferrous sulfate 325 mg (65 mg 325 mg PO DAILY #90 tabs 10/26/22 01/04/23 Rx iron) tablet labetalol 100 mg tablet 100 mg PO Q12H 10 days #20 tabs 12/28/22 01/04/23 Rx Patient hx anesthesia problems: none Family hx anesthesia problems: none Results Review: All pre-operative results and documents have been reviewed as part of the pre-operative evaluation. [facility] Past Medical History Medical History Bacterial meningitis Gestational hypertension History of miscarriage x 1 History of pre-eclampsia 2019 and not yet delivered Surgical History Surgical History Previous section 2019 for failure to progress 12/19/21 [place]ins Family History Family History Mother Anxiety Depression Fibromyalgia Endometriosis Grandparent Lupus Breast cancer Hypertension Social History Social History Smoking status: Never smoker Tobacco type: e-cigarettes/vaping Alcohol intake: never Substance use: never Substance use type: does not use Lack of Transportation: No Lack of Food: Never True Current Housing: I Have Housing Concerned About Future Housing: No Difficulty Paying Gas/Electric Bills: No Difficulty Paying for Meds: No Currently Unemployed: No Education: High School Diploma/GED Difficulty w/ Childcare or Family Care: No Occupation/Education: occupation Additional occupation/education comments: [employer] Gender identity (if verbalized by the patient): Female Spiritual care concerns: No Anes - Eval Final PreProcedure Day of Procedure 01/04/23 07:04 Patient weight: obese Heart: regular rate and rhythm Lungs: clear to auscultation Airway: Mallampati scale class II Neurological: alert and oriented Last oral intake: >/= 8 hours ASA classification: III Emergent: no Anesthetic plan: proceed Anesthesia type and monitoring: regional spinal and standard monitoring Results Review: All pre-operative results and documents have been reviewed as part of the pre-operative evaluation. Informed Consent: The patient's anesthetic plan and its attendant risks and benefits were discussed with the patient/family/POA. Questions were solicited and answers provided to the satisfaction of the patient/family/POA.
--- NOTE | 2023-01-04 07:19 | WPDHPUPDATE1 ---
History and Physical Update Update Date/Time: 01/04/23 07:19 History and Physical has been reviewed, including an updated exam of the patient. There are NO changes in the patient's condition. Risks, benefits, and alternatives have been discussed and questions answered. Patient agrees to proceed with procedure.
[2023-01-04 07:41] LABS: Alanine Aminotransferase 16 U/L (6-35); Albumin Level 3.6 g/dL (3.5-5.1); Alkaline Phosphatase 110 U/L (38-126); Anion Gap 6 mmol/L (8-16); Aspartate Amino Transferase 16 U/L (14-36); Bilirubin,Total 0.8 mg/dL (0.2-1.3); Blood Urea Nitrogen 7 mg/dL (7-17); Calcium 8.5 mg/dL (8.4-10.2); Carbon Dioxide 25 mmol/L (22-30); Chloride 104 mmol/L (98-107); Estimated CRCL calculation 218 ml/min; Estimated Glomerular Filt Rate > 60; Glucose 93 mg/dL (65-110); Potassium 4.1 mmol/L (3.4-5.0); Sodium 135 mmol/L (137-145); Uric Acid 3.4 mg/dL (2.5-7.5)
--- NOTE | 2023-01-04 09:19 | P.OP_ITS ---
Procedure Note - Detailed Date of Procedure 01/04/23 Pre-op Diagnosis elective repeat Post-op Diagnosis Same Procedure Performed repeat low transverse section Surgeon Mckay Lawler MD [employer] Zaida Corbin Anesthesia Spinal Indications patient at 37 weeks with gestational hypertension with 2 prior sections recommended for repeat section as route of delivery. Findings Female infant 8 lb 1 oz normal uterus fallopian tubes and ovaries. Description of Procedure After informed consent, risks and benefits of the procedure was discussed with the patient. The patient was taken to the operating room where she was placed in the dorsal lithotomy position with leftward tilt. After the prior placed epidural anesthesia was found to be adequate, she was then prepped and draped in the usual sterile fashion. A Pfannenstiel skin incision was made along prior scar, with a scalpel and carried through to the underlying layer of fascia. An incision was made in the fascia and extended bilaterally with James scissors. The fascia was densely adhered to abdominal smith and was dissected off the rectus muscles bluntly and sharply, superiorly and inferiorly. The rectus muscles were in the midline with yelena clamp. The scarred muscle was and peritoneum was identified and entered bluntly. The pelvic organs were visualized. The bladder blade was then inserted. The vesicouterine peritoneum was identified and entered sharply with Metzenbaum scissors and extended bilaterally and then the bladder flap was created digitally. The low transverse uterine incision was then made with the scalpel and amniotic cavity entered, clear fluid noted, the incision extended with bilateral index fingers in a crescent-shaped fashion. The head was delivered and the rest of the was delivered.The nose and mouth suctioned. The cord was clamped twice and cut. The was then handed off to the awaiting pediatric staff. The placenta was then delivered manually. There was a large amount of amniotic fluid noted at time sac entered and there was a large amount of blood behind the placenta at time of delivery of placenta. The uterine cavity was sponge curretted. Good uterine tone noted with Pitocin and uterine massage. The uterus was then exteriorized. The uterine incision was then closed with 0 vicryl in a running locked fashion. A figure of eight of 0 vicryl at the right of incision was used for hemostasis. Hemostasis noted. A second layer of 0 vicryl was used in an imbricating fashion for hemostasis. The uterus was then returned to the abdomen. Bilateral gutters were cleared off all clots and debris. The uterine incision was noted to be hemostatic. Interceed placed on uterine incision and vertically on front of uterus. The muscle bellies were inspected and noted to be hemostatic. The peritoneum closed with 3.0 vicryl. The subfascial layer was noted to be hemostatic, and the fascia was closed with 0 Vicryl in a running fashion. The subcutaneous layer was then closed with 3-0 Vicryl in a subcutaneous fashion. The skin was closed with 4.0 vicryl in a subcutaneous fashion. Skin dermabond applied at incision. All instruments, needle, and lap counts were correct x3. The patient was taken to the recovery room in stable condition. Estimated Blood Loss 1,925 Drains No Packing No Pathology Yes (placenta and cord ) Complications No immediate complications Condition Stable Disposition Floor [facility] Billing Surgery - Charge Forward: Surgery Billing
--- NOTE | 2023-01-04 09:29 | PM.OBDSVD ---
DS: Admitting Diagnosis Discharge Date 01/04/23 Admitting Diagnosis Elective repeat section DS: Discharge Diagnosis Discharge Diagnosis (1) Gestational diabetes: Code(s): O24.419 - Gestational diabetes mellitus in , unspecified control Status: Acute (2) S/P repeat low transverse : Code(s): Z98.891 - History of uterine scar from previous surgery Status: Acute OB - DS: Summary Hospital Course Hospital Course: Patient admitted for repeat section. She had an uncomplicated repeat section with deilvery of female . Time spent discussing smoking cessation with patient: 3 to 10 minutes OB Procedures : NST and PIH Mgmt OB Procedures Intrapartum: OB Procedures: : None Peripartum Data Infant Delivery Method: Section Procedures: Procedures Operation Date: 01/04/23 07:30 Actual Procedure Side Surgeon p Repeat Section Mckay Lawler MD Time Spent with Patient Time attestation: Total time spent providing and/or coordinating discharge services: DS: Data Data Completed and Pending Pending studies at discharge: Pending at discharge 01/04/23 08:00 Surgical [PTH] Routine Labs on day of discharge: Labs from last 24 hours 01/04/23 07:18 Sodium 135 L Potassium 4.1 Chloride 104 Carbon Dioxide 25 Anion Gap 6 L BUN 7 Creatinine 0.50 L Estim Creat Clear Calc 218 Estimated GFR > 60 Glucose 93 Uric Acid 3.4 Calcium 8.5 Total Bilirubin 0.8 AST 16 ALT 16 Alkaline Phosphatase 110 Total Protein 7.0 Albumin 3.6 Discharge Plan Discharge Consulting providers: Himanshu Parra ; Beatrice Abdalla ; Rubin Lemus ; Jarod Roberts Discharging Clinician: Himanshu Parra Patient Disposition: Home, Self-Care Activity: as tolerated Diet: as tolerated Wound Care Instructions: incision open to air Discharge Instructions: Education: Mom and Baby Guide Given to: Mother Follow-Up: Call your delivering provider's office for an appointment to be seen in: 1 Week for blood pressure and incision check Mom and baby should come to the [facility] for the follow-up appointment. Appointment Date/Time: January 07, 2023 at 10:00 am What to expect at your follow-up visit: Blood Pressure Check Physical Assessment Call [phone] if you are unable to keep your appointment time. BREAST CARE: * Wear a snug supportive bra. * For engorgement discomfort: Breast Feeding: * Apply warm moist washcloths * Express milk as needed to relieve engorgement * Wear loose clothing Bottle Feeding: * May apply ice packs * For sore nipples: * Identify correct latch-on * Apply warm moist washcloths before and after nursing * Air dry nipples after nursing * May apply Lansinoh cream to nipples EPISIOTOMY/PERINEAL CARE: * Until bleeding stops, use your remberto bottle after urinating * Change your pad frequently throughout the day * No tub baths until seen by your physician - You may shower ACTIVITY: * Rest as much as possible. * Do not exercise or lift anything heavier than your baby (such as laundry or other children.) * Avoid stairs or driving as much as possible for 2 weeks or while taking narcotic pain medicine ([place]). * Do not put anything into the vagina. No douching, tampons, or sexual activity until seen by physician. NOTIFY PHYSICIAN IF YOU HAVE ANY QUESTIONS OR IF ANY OF THE FOLLOWING SYMPTOMS OCCUR: * If your incision becomes red, swollen, or more painful than what you have experienced in the hospital. * If your vaginal bleeding becomes foul smelling. * If your vaginal bleeding becomes more heavy than a period or if your bleeding changes from pink to bright red. However, you may pass an occasional walnut-sized clot once or twice for the first week . * If you expe
[2023-01-04] MEDS: OXYTOCIN 30 UNITS/NS 500 ML 30 UNITS/500 ML BAG 125 UNITS IV CONT (10:23)
--- NOTE | 2023-01-04 11:28 | OBPPTRN ---
1110-Patient transferred to post room #286 via stretcher. Support person present. Oriented to unit, room, information board, rooming in, admission packet and security measures. Patient verbalizes understanding.
--- NOTE | 2023-01-04 12:16 | PC.NURSE ---
[id number] Introductions were made, then consulted with patient to assess needs related to . Mother led the conversation with her?plans to breastfeed?her infant. Resources provided for inpatient and outpatient services with the mom/baby guide. Mother voiced understanding of information and consents to assistance at this time. Discussed the late , LGA, large blood loss and the tongue that is held tight with the lower frenulum and the risks of delayed milk production and how to protect the milk supply. Breast pump provided due to mother desire to protect her milk supply and ineffective . Instructions given on cleaning, care, usage, that there should be no pain, pumping schedule for milk production, collection, and storage of human milk. Mother is encouraged to record pumping schedule on the feeding sheet. Patient was assessed for correct placement, flange size, to pump for comfort and nipple stretching/stimulation for adequate milk production every 3 hours (8 times in 24 hours) 1-2 times at night. Mother brought colostrum in from home to feed to her . is brought into the room. Encouraged understanding of the benefits of skin to skin (demonstrating unwrapping infant and placing upright on her chest), stimulating with massage touch, changing positions to encourage wakefulness, how to watch for early feeding cues, responsive feeding, feeding on demand (aiming for 8-12 times in 24 hours, about every 2-3 hours), milk production, building/maintaining a milk supply, duration of feeding, signs of adequate intake/output and how to record on the feeding sheet. Reviewed positioning and ear, shoulder, hip alignment, supporting the breast to facilitate a deep latch, asymmetrical latch (off-center), leading with the chin with a big, open, wide gape and body close to mother. Infant latched optimally to the right breast in football position using a teacup hold. had a few sucks but is unable to maintain latch. A few attempts were made before stopped demonstrating feeding cues. Infant was placed skin to skin and mother taught to stimulate for feeding. No feeding cues are seen infant is relaxed and resting with eyes open. There are visitors in the room and more waiting to come into the room. Mother was encouraged to practice skin to skin and when demonstrates feeding cues. was unable to maintain latch. Nipple care reviewed with optimal latch and good positioning. Reviewed good handwashing when or touching the breast/nipples to prevent infection. Resources used to facilitate learning were used with the tool/mom and baby guide. Mother voiced understanding of skin to skin, stimulating with massage touch, responsive feedings, hand expressed colostrum, talking to infant to encourage if it has been 2 -2.5 hours since the start of the last , to call if infant does not latch, or if there is discomfort with . Resources provided for inpatient/outpatient with the mom/baby guide. Mother voiced understanding of the education shared along with mom and baby guide for additional resource information. Reported to the primary RN.
[2023-01-04] MEDS: DEXTROSE 5%/0.45% SOD CHL 1,000 ML 125 ML IV CONT (15:11)
[2023-01-04] MEDS: POLYSACCHARIDE IRON COMPLEX 150 MG CAPSULE PO (16:50)
[2023-01-04] MEDS: DOCUSATE SODIUM 100 MG CAPSULE PO (16:51)
[2023-01-04] MEDS: IBUPROFEN 600 MG TABLET PO (21:20)
[2023-01-04] MEDS: HYDROcodone/acetaminophen (*CRX) 5-325 MG TABLET 1 TAB PO (21:20)
[2023-01-05 05:25] VITALS: BP 117/69; PULSE 81; RESP 16; TEMP 36.6
[2023-01-05] MEDS: HYDROcodone/acetaminophen (*CRX) 10-325 MG TABLET 1 TAB PO ×2 (05:28→09:30)
[2023-01-05] MEDS: IBUPROFEN 600 MG TABLET PO ×2 (05:28→15:00)
[2023-01-05 06:03] LABS: Basophils Absolute Auto 0.1 K/mm3 (0.0-0.1); Basophils Percent Auto 0.4 % (0.2-1.2); Eosinophils Absolute Auto 0.1 K/mm3 (0-0.3); Eosinophils Percent Auto 1.1 % (0-4.4); Hematocrit 26.4 % (37.0-47.0); Hemoglobin 8.2 g/dL (12.0-15.0); Immature Granulocyte Absolute 0.08 K/mm3 (0.00-0.031); Immature Granulocyte Percent A 0.7 % (0-0.5); Lymphocytes Absolute Auto 2.53 K/mm3 (0.9-3.2); Mean Corpuscular HGB Conc 31.1 g/dl (32-36); Mean Corpuscular Hemoglobin 23.9 pg (26-34); Mean Platelet Volume 10.8 fl (7.4-10.4); Monocytes Absolute Auto 1.3 K/mm3 (0.1-0.6); Monocytes Percent Auto 11.1 % (2.6-8.5); Neutrophils Absolute Auto 7.9 K/mm3 (1.3-6.7); Neutrophils Percent Auto 65.7 % (45.5-73.1); Platelet Count Result 194 k/mm3 (150-375); Red Blood Count 3.43 M/mm3 (4.2-5.4); Red Cell Distribution Width 13.1 % (11.5-14.5)
[2023-01-05 09:00] VITALS: BP 123/58; PULSE 73; RESP 18; TEMP 36.6; O2SAT 100
[2023-01-05] MEDS: MULTIVIT/MIN/PREN/FOL AC/IRON TABLET 1 TAB PO (09:00)
[2023-01-05] MEDS: DOCUSATE SODIUM 100 MG CAPSULE PO ×2 (09:00→17:00)
[2023-01-05] MEDS: SIMETHICONE 80 MG TAB.CHEW PO ×3 (09:00→21:44)
[2023-01-05] MEDS: POLYSACCHARIDE IRON COMPLEX 150 MG CAPSULE PO ×2 (09:00→17:00)
--- NOTE | 2023-01-05 11:36 | WPDANLDPN2 ---
Anes-Prog Note L&D Date/Time: 01/05/23 11:36 Comfortable throughout: section Neuraxial method: spinal Epidural/Spinal procedure site: clean & non-tender Neuro status: Neuro function grossly intact. Cardiovascular status: normal Respiratory status: normal Airway patency: baseline Mental status: baseline Post-Op hydration status: normal Vital Signs: Last Vital Signs Temp 36.6 C 01/05/23 05:25 Pulse 81 01/05/23 05:25 Resp 16 01/05/23 05:25 BP 117/69 01/05/23 05:25 Pulse Ox 97 01/04/23 16:00 O2 Del Method Room Air 01/04/23 11:30 Pain score (VAS): 12/04 I/O: Intake & Output 01/04/23 01/05/23 01/05/23 23:59 07:59 15:59 Intake Total 2540 700 Output Total 1450 3000 Balance 1090 -2300 Post-procedural complaints: none Patient feedback: Patient satisfied with anesthetic care.
--- NOTE | 2023-01-05 11:37 | WPDANLDNPN2 ---
Anes-Prog Note L&D-Neuraxial Date/Time: 01/05/23 11:37 Neuraxial medications: intrathecal PF morphine Opiod-related complaints: none Patient feedback: Patient satisfied with post-operative pain management.
[2023-01-05 12:00] VITALS: BP 120/69; PULSE 76
--- NOTE | 2023-01-05 14:18 | PM.OBPNVD ---
OB - PN: Subj Subjective Date/time seen: 01/05/23 14:18 Pain well controlled. Diet tolerated. Ambulating without difficulty. VSS Afebrile Abdomen: Positive bowel sounds soft appropriately tender Labs: Noted Assessment: 1. Postop day 1. Repeat section 2. Gestational hypertension... blood pressures have well controlled with current medication. Plan: 1. Continue routine /postoperative care 2. Discharge when patient feels able. OB - PN: Obj Data Labs 01/05/23 05:30 01/04/23 07:18 Labs: Laboratory Results - last 24 hr 01/05/23 05:30 WBC 12.0 H RBC 3.43 L Hgb 8.2 L Hct 26.4 L MCV 77.0 L MCH 23.9 L MCHC 31.1 L RDW 13.1 Plt Count 194 MPV 10.8 H Immature Gran % (Auto) 0.7 H Neut % (Auto) 65.7 Lymph % (Auto) 21.0 Gordon % (Auto) 11.1 H Eos % (Auto) 1.1 Baso % (Auto) 0.4 Lymph # (Auto) 2.53 Gordon # (Auto) 1.3 H Eos # (Auto) 0.1 Baso # (Auto) 0.1 Abs Immat Gran (auto) 0.08 H Absolute Neuts (auto) 7.9 H Absolute Nucleated RBC 0.0 Nucleated RBC % 0.0 OB - PN A/P Time Spent With Patient Time: Total time spent is greater than 50% in coordination of care (as documented) at patient's floor/unit and/or counseling patient:
[2023-01-05] MEDS: HYDROcodone/acetaminophen (*CRX) 5-325 MG TABLET 1 TAB PO ×2 (15:00→21:44)
[2023-01-05 15:15] VITALS: BP 129/72; PULSE 82; RESP 16; TEMP 36.6; O2SAT 100
[2023-01-05 19:10] VITALS: BP 122/63; PULSE 78; RESP 18; TEMP 36.7; O2SAT 100
[2023-01-06 00:26] VITALS: BP 122/71; PULSE 92
[2023-01-06 04:35] VITALS: BP 123/74; PULSE 92
[2023-01-06] MEDS: HYDROcodone/acetaminophen (*CRX) 5-325 MG TABLET 1 TAB PO ×2 (04:39→09:00)
[2023-01-06 08:00] VITALS: BP 120/69; PULSE 105; TEMP 36.7
[2023-01-06] MEDS: POLYSACCHARIDE IRON COMPLEX 150 MG CAPSULE PO (09:00)
[2023-01-06] MEDS: DOCUSATE SODIUM 100 MG CAPSULE PO (09:00)
[2023-01-06] MEDS: MULTIVIT/MIN/PREN/FOL AC/IRON TABLET 1 TAB PO (09:00)
[2023-01-06] MEDS: IBUPROFEN 600 MG TABLET PO (09:00)
[2023-01-06 11:00] VITALS: BP 123/76; PULSE 102; PULSE 92; RESP 18; RESP 20; TEMP 36.6; O2SAT 100
--- NOTE | 2023-01-06 12:24 | PM.OBDSVD ---
DS: Admitting Diagnosis Discharge Date 01/06/2023 Admitting Diagnosis DS: Discharge Diagnosis Discharge Diagnosis (1) , delivered: Code(s): O80 - Encounter for full-term uncomplicated delivery Status: Acute OB - DS: Summary Hospital Course Hospital Course: Patient admitted for repeat section. She had an uncomplicated repeat section with deilvery of female . OB Procedures : None OB Procedures Intrapartum: OB Procedures: : None Peripartum Data Procedures: Procedures Operation Date: 01/04/23 07:30 Actual Procedure Side Surgeon p Repeat Section Mckay Lawler MD Time Spent with Patient Time attestation: Total time spent providing and/or coordinating discharge services: DS: Data Data Completed and Pending Pending studies at discharge: Pending at discharge 01/04/23 08:00 Surgical [PTH] Routine Discharge Plan Discharge Discharging Clinician: Himanshu Parra Patient Disposition: Home, Self-Care Activity: as tolerated Diet: as tolerated Wound Care Instructions: incision open to air Discharge Instructions: Education: Mom and Baby Guide Given to: Mother Follow-Up: Call your delivering provider's office for an appointment to be seen in: 1 Week for blood pressure and incision check Mom and baby [facility] for the follow-up appointment. Appointment Date/Time: January 07, 2023 at 10:00 am What to expect at your follow-up visit: Blood Pressure Check Physical Assessment Call [phone] if you are unable to keep your appointment time. BREAST CARE: * Wear a snug supportive bra. * For engorgement discomfort: Breast Feeding: * Apply warm moist washcloths * Express milk as needed to relieve engorgement * Wear loose clothing Bottle Feeding: * May apply ice packs * For sore nipples: * Identify correct latch-on * Apply warm moist washcloths before and after nursing * Air dry nipples after nursing * May apply Lansinoh cream to nipples EPISIOTOMY/PERINEAL CARE: * Until bleeding stops, use your remberto bottle after urinating * Change your pad frequently throughout the day * No tub baths until seen by your physician - You may shower ACTIVITY: * Rest as much as possible. * Do not exercise or lift anything heavier than your baby (such as laundry or other children.) * Avoid stairs or driving as much as possible for 2 weeks or while taking narcotic pain medicine ([place]). * Do not put anything into the vagina. No douching, tampons, or sexual activity until seen by physician. NOTIFY PHYSICIAN IF YOU HAVE ANY QUESTIONS OR IF ANY OF THE FOLLOWING SYMPTOMS OCCUR: * If your incision becomes red, swollen, or more painful than what you have experienced in the hospital. * If your vaginal bleeding becomes foul smelling. * If your vaginal bleeding becomes more heavy than a period or if your bleeding changes from pink to bright red. However, you may pass an occasional walnut-sized clot once or twice for the first week . * If you experience a sharp, shooting pain in your calves. * If you discover a hard, reddened area on your breast or if you experience flu-like symptoms. DIET: * Eat regular, well-balanced meals. * Drink plenty of fluids daily. If , drink to thirst. Patient Instructions: Antibiotic Form, Caring for Your Baby (DC), (DC) Stand Alone Forms: General Discharge Information Follow-up/Referrals: Mckay Lawler MD [Physician] - 3 Weeks Discharge Medications: New oxycodone-acetaminophen [Percocet] 5-325 mg tablet 1 tablet PO Q4H PRN (Reason: pain) Qty: 20 0RF ibuprofen 600 mg Tablet 600 mg PO Q6H PRN (Reason: Cramping) Qty: 30 0RF Continued prenat.vits,lupis,[id number] Tablet 1 tablet PO DAILY labetalol 100 m
[2023-01-06] MEDS: HYDROcodone/acetaminophen (*CRX) 10-325 MG TABLET 1 TAB PO (13:30)
== END 2023-01-06 13:35 | disposition home or self-care (01) | DRG 540 ==
LOC: ANHLDR 05:48 → ANHOB2 11:11
PROVIDERS: Admitting Provider Obstetrics & Gynecology; Visit Provider Obstetrics & Gynecology
PROC: 10D00Z1 Extraction of Products of Conception, Low, Open Approach (ICD-10-PCS; CPT 59514; principal; 2023-01-04 07:30)
DX: O34.219 Maternal care for unspecified type scar from previous cesarean delivery (principal); O13.4 Gestational [pregnancy-induced] hypertension without significant proteinuria, complicating childbirth; O99.334 Smoking (tobacco) complicating childbirth; F17.290 Nicotine dependence, other tobacco product, uncomplicated; Z3A.37 37 weeks gestation of pregnancy; Z37.0 Single live birth
CPT/HCPCS: 36415; 80053; 84550; 85025; 88307; A9270; J0131; J1165; J1200; J1885; J2590; J7120

== ENCOUNTER 2023-06-03 10:55 | Emergency (ER) | payer OTHER, SELFPAY ==
[2023-06-03 11:00] VITALS: BP 139/69; PULSE 80; RESP 20; TEMP 36.5; O2SAT 100
[2023-06-03 11:07] VITALS: BP 139/69; PULSE 80; RESP 20; TEMP 36.5; O2SAT 100
--- NOTE | 2023-06-03 11:11 | ED.EAR ---
HPI - Ear Problem General Chief complaint: Ear Stated complaint: Right Ear Pain History of Present Illness HPI Narrative: patient presents with right ear pain no hearing loss no drainage no fever. patient states has had uri symptoms for past week and has not taken anything OTC for her symptoms. Related Data Allergies Allergy/AdvReac Type Severity Reaction Status Date / Time ondansetron [From Zofran] AdvReac Intermediate NAUSEA/HEAD Verified 06/03/23 11:06 ACHES Review of Systems Review of Systems: CONSTITUTIONAL: Denies chills, or sweats. Reports fever and generalized body aches EYES: Denies visual changes, redness, or discharge. ENT: Denies otalgia. Reports nasal congestion runny nose and sore throat CARDIOVASCULAR: Denies chest pain, palpitations, or edema. RESPIRATORY: Denies dyspnea. Reports occasional cough GASTROINTESTINAL: Denies abdominal pain, nausea, vomiting, or diarrhea. GENITOURINARY: Denies dysuria or hematuria. SKIN: Denies rash or itching. MUSCULOSKELETAL: Denies back pain, joint pain, or myalgia. Reports generalized body aches NEUROLOGIC: Denies headache, numbness, or weakness. PSYCHIATRIC: Denies anxiety or depression. [facility] Past Medical History Medical History Bacterial meningitis Gestational hypertension History of miscarriage x 1 History of pre-eclampsia 2019 and not yet delivered Surgical History Surgical History Previous section 2019 for failure to progress 12/19/21 [place] Family History Family History Mother Anxiety Depression Fibromyalgia Endometriosis Grandparent Lupus Breast cancer Hypertension Social History Social History Smoking status: Never smoker Tobacco type: e-cigarettes/vaping Alcohol intake: never Substance use: never Substance use type: does not use Lack of Transportation: No Lack of Food: Never True Current Housing: I Have Housing Concerned About Future Housing: No Difficulty Paying Gas/Electric Bills: No Difficulty Paying for Meds: No Currently Unemployed: No Education: High School Diploma/GED Difficulty w/ Childcare or Family Care: No Occupation/Education: occupation Additional occupation/education comments: [employer] Gender identity (if verbalized by the patient): Female Spiritual care concerns: No Comments At time of signature, agree with nursing past medical, surgical, social and family history. There is no relevant family history pertinent to the presenting complaint Exam Narrative: The patient is a well-developed, well-nourished in no acute distress. SKIN: Skin is warm and dry without erythema, swelling or exudate. There is good turgor. No tenting. HEAD: Atraumatic. Normocephalic. No temporal or scalp tenderness. EYES: Moist and bright. Sclera and conjunctivae normal. No discharge. PERRLA. Extraocular motions intact. Gross visual acuity intact. EARS: Pinna is normal shape and contour. Clear external auditory canals. leftTM pearly valles with good cone of light, no erythema or suppuration. right TM bulging with mild erythema to canal. Bilateral cerumen noted no gross hearing deficit. NOSE: pink, moist mucosa with good air movement. Clear rhinorrhea without nasal flaring. Septum midline. Mouth: moist mucous membranes. THROAT; mild erythema noted to posterior oropharynx with moderate postnasal drainage. Without exudate or ulceration.. Uvula midline. Normal movement of soft palate. NECK: Supple and nontender with full range of motion without discomfort. No meningeal signs. LUNGS: Equal and bilateral breath sounds without wheezes, rales or rhonchi. CHEST: The chest wall is without retractions or use of accessory muscles. HEART: Has a regular rate and
== END 2023-06-03 11:18 | disposition home or self-care (01) ==
PROVIDERS: Emergency Provider Nurse Practitioner Family; PCP Family Medicine
DX: H66.91 Otitis media, unspecified, right ear (principal)
CPT/HCPCS: 99213; G0463

== ENCOUNTER 2024-01-02 18:53 | Emergency (ER) | payer OTHER, SELFPAY ==
--- NOTE | 2024-01-02 19:25 | ED.EAR ---
HPI - Ear Problem General Chief complaint: Ear Stated complaint: Ear Pain/Sore Throat Time Seen by Provider: 01/02/24 19:03 Source: patient and RN notes reviewed Mode of arrival: ambulatory Limitations: no limitations History of Present Illness HPI Narrative: Patient presents today with a sore throat x2 days that she currently rates it 8/10. Denies cough, congestion, rhinorrhea. She has tried some Mucinex without relief. She also reports right ear discomfort and decreased hearing times 2-4 weeks that she currently rates 4/10. Related Data Allergies Allergy/AdvReac Type Severity Reaction Status Date / Time ondansetron [From Zofran] AdvReac Intermediate NAUSEA/HEAD Verified 06/03/23 11:06 ACHES Review of Systems Review of Systems: CONSTITUTIONAL: Denies body aches, fever, chills, or sweats. EYES: Denies visual changes, redness, or discharge. ENT: Denies rhinorrhea, congestion. + sore throat, right ear discomfort CARDIOVASCULAR: Denies chest pain, palpitations, or edema. RESPIRATORY: Denies cough or dyspnea. GASTROINTESTINAL: Denies abdominal pain, nausea, vomiting, or diarrhea. GENITOURINARY: Denies dysuria or hematuria. SKIN: Denies rash, itching, or wounds. MUSCULOSKELETAL: Denies back pain, joint pain, or myalgia. NEUROLOGIC: Denies headache, numbness, tingling, or weakness. PSYCH: Denies depression or anxiety. [facility] Past Medical History Medical History Bacterial meningitis Gestational hypertension History of miscarriage x 1 History of pre-eclampsia 2019 and not yet delivered Surgical History Surgical History Previous section 2019 for failure to progress 12/19/21 [place] Family History Family History Mother Anxiety Depression Fibromyalgia Endometriosis Grandparent Lupus Breast cancer Hypertension Social History Social History Smoking status: Never smoker Tobacco type: e-cigarettes/vaping Alcohol intake: never Substance use: never Substance use type: does not use Lack of Transportation: No Lack of Food: Never True Current Housing: I Have Housing Concerned About Future Housing: No Difficulty Paying Gas/Electric Bills: No Difficulty Paying for Meds: No Currently Unemployed: No Education: High School Diploma/GED Difficulty w/ Childcare or Family Care: No Occupation/Education: occupation Additional occupation/education comments: [employer] Gender identity (if verbalized by the patient): Female Spiritual care concerns: No Comments At time of signature, I have reviewed and agree with nursing past medical, surgical, social and family history unless otherwise noted. Please see nursing chart for further information. There is no relevant family history pertinent to the presenting complaint Exam Narrative: GENERAL: Well-appearing, well-nourished, and in no acute distress. HEAD: Normocephalic, atraumatic. EYES: EOMI. No redness or drainage. Conjunctivae normal. ENT: Mucous membranes pink and moist. Nares clear. No rhinorrhea. Left TM normal. Right TM occluded with cerumen impaction. Throat mildly erythematous without edema or exudate. Uvula midline. NECK: Normal AROM. Supple. No lymphadenopathy. CHEST: No respiratory distress. Clear to auscultation. HEART: Regular rate and rhythm. No murmur appreciated. EXTREMITIES: Normal range of motion. No edema. SKIN: Warm, dry, no rash. Capillary refill normal. Normal skin turgor. NEURO: No focal deficits. Alert and oriented x3. Gait steady. PSYCH: Normal affect. No signs of depression or anxiety. Course Course Level of Care: Express Care Visit Procedures Ear Wax Removal Right Ear: Ear Wax Removal Date: 01/02/24
[2024-01-02 19:27] VITALS: BP 168/87; PULSE 82; RESP 18; TEMP 36.6; O2SAT 100
== END 2024-01-02 19:33 | disposition home or self-care (01) ==
PROVIDERS: Emergency Provider Nurse Practitioner; PCP Family Medicine
DX: H61.21 Impacted cerumen, right ear (principal); J02.9 Acute pharyngitis, unspecified
CPT/HCPCS: 69209; 87081; 87880; 99213; A9270; G0463

== ENCOUNTER 2024-01-26 19:31 | Emergency (ER) | payer SELFPAY ==
[2024-01-26 19:38] VITALS: BP 165/89; PULSE 79; RESP 18; TEMP 37.3; O2SAT 98
--- NOTE | 2024-01-26 19:47 | ED.NAVMDI ---
HPI - Nausea/Vomiting/Diarrhea General Chief complaint: Abdominal Pain Stated complaint: Abdominal Pain Time Seen by Provider: 01/26/24 19:33 History of Present Illness HPI Narrative: Patient presents with a 2 week history of intermittent diarrhea. Patient denies any abdominal pain but does have epigastric pain. Patient has taken Pepto-Bismol and Pepcid with minimal relief in her symptoms. Patient states she has changed her diet and is avoiding any fried fast or spicy foods. Patient denies any nausea states she is drinking tolerate liquids well. Patient reports 2 loose stools today. Patient denies any blood or mucus in her stools. No fever no body aches. Patient has appointment to follow-up with her primary care provider in 2 days. Related Data Allergies Allergy/AdvReac Type Severity Reaction Status Date / Time ondansetron [From Zofran] AdvReac Intermediate NAUSEA/HEAD Verified 01/26/24 19:49 ACHES Review of Systems Review of Systems: CONSTITUTIONAL: Denies fever, chills, or sweats. EYES: Denies visual changes, redness, or discharge. ENT: Denies rhinorrhea, congestion, sore throat, or otalgia. CARDIOVASCULAR: Denies chest pain, palpitations, or edema. RESPIRATORY: Denies cough or dyspnea. GASTROINTESTINAL: Denies abdominal pain, nausea, vomiting, or diarrhea. GENITOURINARY: Denies dysuria or hematuria. SKIN: Denies rash or itching. MUSCULOSKELETAL: Denies back pain, joint pain, or myalgia. NEUROLOGIC: Denies headache, numbness, or weakness. PSYCHIATRIC: Denies anxiety or depression. [facility] Past Medical History Medical History Bacterial meningitis Gestational hypertension History of miscarriage x 1 History of pre-eclampsia 2019 and not yet delivered Surgical History Surgical History Previous section 2019 for failure to progress 12/19/21 [place] Family History Family History Mother Anxiety Depression Fibromyalgia Endometriosis Grandparent Lupus Breast cancer Hypertension Social History Social History (Reviewed 01/02/24 @ 19:26 by Liv Srtauss, NATALIE, Joshua Smoking status: Never smoker Tobacco type: e-cigarettes/vaping Alcohol intake: never Substance use: never Substance use type: does not use Lack of Transportation: No Lack of Food: Never True Current Housing: I Have Housing Concerned About Future Housing: No Difficulty Paying Gas/Electric Bills: No Difficulty Paying for Meds: No Currently Unemployed: No Education: High School Diploma/GED Difficulty w/ Childcare or Family Care: No Occupation/Education: occupation Additional occupation/education comments: [employer] Gender identity (if verbalized by the patient): Female Spiritual care concerns: No Comments At time of signature, agree with nursing past medical, surgical, social and family history. There is no relevant family history pertinent to the presenting complaint Exam Narrative: GENERAL: Well-appearing, well-nourished, and in no acute distress. HEAD: Normocephalic, atraumatic. EYES: PERRLA and EOMI. ENT: Nares clear, no rhinorrhea or epistaxis. Mucous membranes moist. NECK: Supple. CHEST: Clear to auscultation. No respiratory distress. HEART: Regular rate and rhythm. No murmur heard. Normal peripheral pulses. ABDOMEN: Soft, nontender, nondistended, normal active bowel sounds. Slight epigastric tenderness. No guarding no positive signs no rebound tenderness EXTREMITIES: Normal range of motion. No edema. SKIN: Warm, dry, no rash. NEURO: No focal deficits. Alert and oriented x3. Elizabeth Coma Scale Eye Opening: Spontaneous 4 [place] Coma Scale Motor: Obeys Commands 6 Charlotte Coma Scale Verbal: Oriented 5 Elizabeth Coma Scale Total 15 Course Course Level of Care: Expres
== END 2024-01-26 19:55 | disposition home or self-care (01) ==
PROVIDERS: Emergency Provider Nurse Practitioner Family; PCP Family Medicine
DX: K21.9 Gastro-esophageal reflux disease without esophagitis (principal)
CPT/HCPCS: 99213; G0463

== ENCOUNTER 2024-09-23 09:06 | Emergency (ER) | payer OTHER, SELFPAY ==
[2024-09-23 09:21] VITALS: BP 143/75; PULSE 88; RESP 18; TEMP 36.5; O2SAT 100
--- NOTE | 2024-09-23 09:40 | ED_ITS ---
HPI - General Adult General Chief complaint: Abdominal Pain Stated complaint: Abdominal pain/Poss Galbladder Time Seen by Provider: 09/23/24 09:35 Source: patient Mode of arrival: ambulatory Limitations: no limitations History of Present Illness HPI narrative: 24-year-old female presents to [facility] with complaints right upper abdomen pain which started at about 0600 this morning but patient reports that acute pain has subsided but continues to have some nausea. Patient reports that she had ultrasound of her gall bladder about 2 years ago with stones found in gall bladder and was going to have surgery but then found out she was . She reports that she ate late supper at 10 p last night of chicken and rice and then went to bed about midnight . Pain this morning awoke her at 0600 and was in the right upper abdomen and went to mid upper epigastric area. Patient reports that she had normal bowel movement this morning. MD complaint: right upper abdomen pain atarted at 0600 with some nausea Onset (ago): hour(s) (0600) Location: abdomen (right upper abdomen) Severity scale (1-10): 4 Treatments prior to arrival: none Related Data Allergies Allergy/AdvReac Type Severity Reaction Status Date / Time ondansetron [From Zofran] AdvReac Intermediate NAUSEA/HEAD Verified 09/23/24 09:38 ACHES Review of Systems Review of Systems: CONSTITUTIONAL: Denies fever, chills, or sweats. ENT: Denies rhinorrhea, congestion, sore throat, or otalgia. CARDIOVASCULAR: Denies chest pain, palpitations, or edema. RESPIRATORY: Denies cough or dyspnea. GASTROINTESTINAL: Reports right upper abdominal pain radiating to epigastric with nausea,no vomiting, no diarrhea. GENITOURINARY: Denies dysuria or hematuria. SKIN: Denies rash or itching. MUSCULOSKELETAL: Denies back pain, joint pain, or myalgia. NEUROLOGIC: Denies headache, numbness, or weakness. All systems reviewed & are unremarkable except as noted in HPI and below PMFSH Past Medical History Medical History Bacterial meningitis Gestational hypertension History of miscarriage x 1 History of pre-eclampsia 2019 and not yet delivered Surgical History Surgical History Previous section 2019 for failure to progress 12/19/21 [place] Family History Family History Mother Anxiety Depression Fibromyalgia Endometriosis Grandparent Lupus Breast cancer Hypertension Social History Social History (Updated 09/26/24 @ 08:15 by Nichole Amanda NP) Smoking status: Current every day smoker Tobacco type: e-cigarettes/vaping Alcohol intake: never Substance use: never Substance use type: does not use Lack of Transportation: No Lack of Food: Never True Current Housing: I Have Housing Concerned About Future Housing: No Difficulty Paying Gas/Electric Bills: No Difficulty Paying for Meds: No Currently Unemployed: No Education: High School Diploma/GED Difficulty w/ Childcare or Family Care: No Occupation/Education: occupation Additional occupation/education comments: [employer] Gender identity (if verbalized by the patient): Female Spiritual care concerns: No Comments At time of signature, agree with nursing past medical, surgical, social and family history. There is no relevant family history pertinent to the presenting complaint Exam Narrative: GENERAL: Well-appearing, well-nourished, and in no acute distress. HEAD: Normocephalic, atraumatic. EYES: PERRLA, conjunctivae clear, and EOMI. ENT: Nares clear. Mucous membranes moist. Oropharynx without edema, erythema, or lesions. Tonsils not enlarged and without exudate. NECK: Supple. No lymphadenopathy CHEST: Speaks in full sentences. No respiratory distress.SAO2 100% on room air HEART: Regular rate and rhythm. ABDOMEN: Soft, flat, nondistended. No guarding, rebound tenderness, or rigid. No pulsatilla masses. Bowel sounds present in all four quadrants. No organomegaly. Positive for Faye?s sign. No periumbilical tenderness. No Supra public tenderness or distension. Good femoral pulses bilaterally. No hernia noted. C section scar no surface trauma. reports nausea with no emesis SKIN: Warm, dry, no rash. NEURO:? Alert and oriented x3. PSYCH: Normal mood and affect Course Course Emergency Course: Patient is aware of diagnosis, understands and agrees to treatment plan.? Anticipatory guidance given.? Patient agrees to follow-up as directed and is aware of reasons to seek care at the emergency department. Portions of this record may have been created with voice recognition software Level of Care: Express Care Visit Vital Signs Vital signs: Vital Signs Temperature 36.5 C 09/23/24 09:21 Pulse Rate 88 09/23/24 09:21 Respiratory Rate 18 09/23/24 09:21 Blood Pressure 143/75 H 09/23/24 09:21 Pulse Oximetry 100 09/23/24 09:21 Temperature 36.5 C 09/23/24 09:21 Pulse Rate 88 09/23/24 09:21 Respiratory Rate 18 09/23/24 09:21 Blood Pressure 143/75 H 09/23/24 09:21 Pulse Oximetry 100 09/23/24 09:21 Reviewed Medical Decision Making Differential Diagnosis Differential Diagnosis: right upper abdominal pain, nausea without emesis, biliary colic. gall stones Medical Records Medical records reviewed: Yes I reviewed the external patient's medical records. Vital Signs Vital Signs: Vital Signs Temperature 36.5 C 09/23/24 09:21 Pulse Rate 88 09/23/24 09:21 Respiratory Rate 18 09/23/24 09:21 Blood Pressure 143/75 H 09/23/24 09:21 Pulse Oximetry 100 09/23/24 09:21 Temperature 36.5 C 09/23/24 09:21 Pulse Rate 88 09/23/24 09:21 Respiratory Rate 18 09/23/24 09:21 Blood Pressure 143/75 H 09/23/24 09:21 Pulse Oximetry 100 09/23/24 09:21 reviewed Lab Data Lab results reviewed: Yes I reviewed the patient's lab results. Lab results narrative: urine for negative Labs: Lab Results 09/23/24 Range/Units 10:11 POC Urine HCG, Qual Negative (Negative) Critical Care Time Critical Care Time Critical Care Time: No Discharge Plan Discharge Clinical Impression: Right upper quadrant abdominal pain, Nausea alone Patient Disposition: Home, Self-Care Condition: Stable Instructions: Acute Nausea and Vomiting (ED), Abdominal Pain (ED) Additional Instructions: Clear liquids for the next 8-10 hours, then advance to a bland diet as tolerated A bland diet can consist of--BRAT diet which is bananas, rice, applesauce, and toast Avoid fried, greasy, fatty, fried foods Avoid caffeine, nicotine, and alcohol Return to your regular diet in the next 3-4 days Medication as directed for nausea and vomiting Sometimes ibuprofen/Aleve can cause increased stomach upset use Tylenol for pain Follow-up with her PCP for further testing and referral If increase in pain go directly to the emergency room for further evaluation If your symptoms persist, change or worsen significantly before you can contact your personal physician then please, without delay, go to the emergency department for further evaluation. Follow-up with PCP in 7-10 days or sooner if needed Follow up with PCP soon in regards to your blood pressure which is elevated above threshold for referral. Blood pressure above 120/80 may indicate pre- hypertension. 143/75 Prescriptions: New promethazine 25 mg tablet 25 mg PO Q6H PRN (Reason: nausea and vomiting) Qty: 10 0RF Rx Instructions: for nausea Follow-up/Referrals: Yanira Massey RN [Primary Care Provider] - Stand Alone Forms: Work/School Release IP Time of Disposition: 10:07 Quality Elizabeth Coma Scale Eyes: Open Verbal: Oriented and Alert Motor: Follows Commands Elizabeth Coma Total Score: 15
[2024-09-23 10:13] LABS: BEDSIDEPREGUCG Negative (Negative)
== END 2024-09-23 10:10 | disposition home or self-care (01) ==
PROVIDERS: Emergency Provider Registered Nurse
DX: R10.11 Right upper quadrant pain (principal); R11.0 Nausea; F17.290 Nicotine dependence, other tobacco product, uncomplicated; Z86.61 Personal history of infections of the central nervous system
CPT/HCPCS: 81025; 99213; G0463

== ENCOUNTER 2024-10-06 11:51 | Emergency (ER) | payer OTHER, SELFPAY ==
--- NOTE | ~2024-10-06 | XR_ITS ---
XR ankle LT min 3V Ordering provider: Gloria Cooney APRN History: . rolled ankle yesterday . Comparison: None. FINDINGS: BONES: No acute fracture or dislocation. JOINT SPACES: The ankle mortise is normal. SOFT TISSUES: Normal. IMPRESSION: No acute osseous abnormality left ankle. Reviewed, dictated and finalized at location A. ORK PRICING CONSULTANT
[2024-10-06 11:58] VITALS: BP 127/63; PULSE 68; RESP 20; TEMP 36.3; O2SAT 100
--- NOTE | 2024-10-06 12:15 | ED.LOWEXIN ---
HPI - Extremity Injury (Lower) General Chief Complaint: Extremity Injury, Lower Stated Complaint: abdo pain/left ankle twist Time Seen by Provider: 10/06/24 12:15 Source: patient, RN notes reviewed and old records reviewed Mode of arrival: ambulatory Limitations: no limitations History of Present Illness HPI Narrative: 24-year-old female to Express Care with complaint of left ankle pain for 1 day. 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 Patient also complaining of left lower pelvic discomfort and nausea for 3 days. Patient reports last menstrual period September 04. Patient states she is currently using contraceptives. Patient resting comfortably in exam room in no acute distress. Related Data Home Medications Medication Instructions Recorded Confirmed No Home Medications 10/06/24 10/06/24 Allergies Allergy/AdvReac Type Severity Reaction Status Date / Time ondansetron [From Zofran] AdvReac Intermediate NAUSEA/HEAD Verified 10/06/24 12:24 ACHES Review of Systems Review of Systems: All systems reviewed & are unremarkable except as noted in HPI and below Constitutional: Constitutional: Reports no additional constitutional complaints Eyes: Eyes: Reports no additional eye complaints ENT: Reports system reviewed and no additional complaints, except as documented Cardiovascular: Cardiovascular: Reports no additional cardiovascular complaints, Denies chest pain and Denies dyspnea Respiratory: Respiratory: Reports no additional respiratory complaints, Denies cough and Denies dyspnea Gastrointestinal: Gastrointestinal: Reports as per HPI and Reports nausea Genitourinary: Genitourinary: Reports as per HPI and Reports pelvic pain ( lower left) Musculoskeletal: Musculoskeletal: Reports as per HPI, Reports arthralgias and Reports joint swelling Neurologic: Reports system reviewed and no additional complaints, except as documented Psychiatric: Psychiatric: Reports no additional psychiatric complaints [facility] Past Medical History Medical History Bacterial meningitis Gestational hypertension History of miscarriage x 1 History of pre-eclampsia 2019 and not yet delivered Surgical History Surgical History Previous section 2019 for failure to progress 12/19/21 [place] Family History Family History Mother Anxiety Depression Fibromyalgia Endometriosis Grandparent Lupus Breast cancer Hypertension Social History Social History Smoking status: Current every day smoker Tobacco type: e-cigarettes/vaping Alcohol intake: never Substance use: never Substance use type: does not use Lack of Transportation: No Lack of Food: Never True Current Housing: I Have Housing Concerned About Future Housing: No Difficulty Paying Gas/Electric Bills: No Difficulty Paying for Meds: No Currently Unemployed: No Education: High School Diploma/GED Difficulty w/ Childcare or Family Care: No Occupation/Education: occupation Additional occupation/education comments: [employer] Gender identity (if verbalized by the patient): Female Spiritual care concerns: No Comments At the time of my signature, I reviewed and agree with the nursing past medical, surgical, social, and family history. There is no relevant family history pertinent to the patient complaint. Exam Const: General: cooperative, comfortable, no acute distress, alert and well nourished Nutritional Appearance: well nourished Orientation/consciousness: patient oriented x3 Limitations: no limitations HENMT: Head: normal to inspection Ears: external ears normal Face/Nose/Sinus: Normal external nose present, Normal nares present, normal facial exam, No erythema and No edema Face and sinus: normal facial exam, no erythema and no edema Mouth: Yes Normal oral and palatal mucosa present Eyes: General: appearance normal, both eyes and all related structures Neck: Neck: normal visual inspection, full ROM and no meningeal signs Chest: Chest palpation & inspection: normal inspection of the chest Resp: Effort & Inspection: normal respiratory effort and able to speak in complete sentences Cardio: Jugular venous distension: no JVD Rate: regular rate GI: Inspection: normal to inspection : General: Yes no CVA tenderness Back/Spine/Pelvis: Cervical Spine: cervical ROM normal Skin: General skin exam: normal color, no rashes or lesions noted and turgor normal Neuro: General: patient oriented x3, moves all extremities and no meningeal signs Speech: normal speech Extrem: General: full ROM and capillary refill normal Left lower extremity: normal capillary refill and ankle Details: tenderness Location: of the lateral malleolus, swelling Details: laterally and normal ROM Psych: Appearance: grossly normal and well kempt Course Course Emergency Course: Some parts of this dictation were generated by voice recognition software and may contain typographical and/or grammatical inaccuracies. Level of Care: Express Care Visit Vital Signs Vital signs: Vital Signs Temperature 36.3 C L 10/06/24 11:58 Pulse Rate 68 10/06/24 11:58 Respiratory Rate 20 10/06/24 11:58 Blood Pressure 127/63 10/06/24 11:58 Pulse Oximetry 100 10/06/24 11:58 Oxygen Delivery Room Air 10/06/24 11:58 Temperature 36.3 C L 10/06/24 11:58 Pulse Rate 68 10/06/24 11:58 Respiratory Rate 20 10/06/24 11:58 Blood Pressure 127/63 10/06/24 11:58 Pulse Oximetry 100 10/06/24 11:58 Oxygen Delivery Room Air 10/06/24 11:58 reviewed MDM - Extremity Injury (Lower) MDM Narrative Medical decision making narrative: 24-year-old female to Express Care with complaint of left ankle pain for 1 day. 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 Patient also complaining of left lower pelvic discomfort and nausea for 3 days. Patient reports last menstrual period September 04. Patient states she is currently using contraceptives. Patient resting comfortably in exam room in no acute distress. On exam, left lateral ankle tenderness and mild swelling. Exam otherwise unremarkable. Radiology negative for acute findings in clinic. UA negative for UTI in clinic. Urine hCG positive for . Results discussed with patient. Patient is sitting comfortably in exam room nontoxic in appearance. Patient appropriate for outpatient treatment and follow-up. Discharge instructions reviewed with patient, as well as provided in writing per nursing staff. The instructions also include specific and strict return/GO TO THE ER as well as f/u information. All questions have been answered, and the patient deny any further questions with discharge and discharge plan. Some parts of this dictation were generated by voice recognition software and may contain typographical and/or grammatical inaccuracies. Differential Diagnosis Differential diagnosis: Likely ankle sprain and strain, acute internal derangement of knee, fracture of femur, fracture of hip, puncture wound of foot, fracture of toe and ankle fracture Lab Data Labs: Lab Results 10/06/24 Range/Units 12:16 POC Urine Color Yellow POC Urine Clarity Cloudy POC Urine pH 7.0 POC Ur Specif [place] 1.030 POC Urine Protein 2+ (Negative) POC Ur Glucose (UA) Negative (Negative) POC Urine Ketones Negative (Negative) POC Urine Blood Negative (Negative) POC Urine Nitrite Negative (Negative) POC Urine Bilirubin Negative (Negative) POC Urine Urobilinogen 1.0 POC U Leukocyte Esteras Negative (Negative) POC Urine HCG, Qual Positive (Negative) Imaging Data Radiologist's impression: XR ankle LT min 3V Ordering provider: Gloria Cooney APRN History: . rolled ankle yesterday . Comparison: None. FINDINGS: BONES: No acute fracture or dislocation. JOINT SPACES: The ankle mortise is normal. SOFT TISSUES: Normal. IMPRESSION: No acute osseous abnormality left ankle. Discharge Plan Discharge Clinical Impression: , Sprain of ankle, left Patient Disposition: Home, Self-Care Condition: Stable Instructions: Ankle Sprain (ED) Additional Instructions: please review touch instruction regarding ankle sprain and implement suggestions as tolerated please follow-up with your OBGYN as needed for your for new or worsening symptoms please go directly to the emergency department Prescriptions: No Action No Home Medications Follow-up/Referrals: Yanira Massey RN [Primary Care Provider] - Stand Alone Forms: Work/School Release IP
[2024-10-06 12:24] LABS: BEDSIDEPREGUCG Positive (Negative)
[2024-10-06 12:31] LABS: EDUAAPPEAR Cloudy; EDUABILI Negative (Negative); EDUABLOOD Negative (Negative); EDUACOLOR1 Yellow; EDUAGLUCOSE Negative (Negative); EDUAKETONE Negative (Negative); EDUALEUKO Negative (Negative); EDUANITRATE Negative (Negative); EDUAPROTEIN 2+ (Negative)
== END 2024-10-06 13:15 | disposition home or self-care (01) ==
PROVIDERS: Emergency Provider Nurse Practitioner Family
DX: O9A.219 Injury, poisoning and certain other consequences of external causes complicating pregnancy, unspecified trimester (principal); Z3A.00 Weeks of gestation of pregnancy not specified; S93.402A Sprain of unspecified ligament of left ankle, initial encounter; X50.9XXA Other and unspecified overexertion or strenuous movements or postures, initial encounter; Y99.0 Civilian activity done for income or pay; O99.330 Smoking (tobacco) complicating pregnancy, unspecified trimester; F17.290 Nicotine dependence, other tobacco product, uncomplicated
CPT/HCPCS: 73610; 81003; 81025; 87086; 99213; G0463

== ENCOUNTER 2025-01-13 14:08 | Emergency (ER) | payer OTHER, SELFPAY ==
--- OUTSIDE RECORDS SUMMARY | 2025-01-13 14:11 | XMS_ITS | Encounter Summary ---
Author Organization [facility] Healthcare Address [address] [place] [address] Care Team Providers Care Retail Merchandiser Technician Name Role Phone Carlos Lee MD Primary Care Provider [phone] Yanira Massey NP Primary Care Provider [phone] Encounter Details Date Type Department Care Team (Late st Contact Info) Description 12/15/2023 Documentation [facility] IM [address] [place] [address] Sherrie Kruse Social History Tobacco Use Types Packs/Day Years Used Date Smoking Tobacco: Never Smokeless Tobacco: Never Alcohol Use Standard Drinks/Week Comments Yes 0 (1 standard drink = 0.6 oz pur e alcohol) Personal Safety Answer Date Recorded Getting School Help Needed Not on file 11/08 Comments Unknown Sex and Gender Information Value Date Recorded Sex Assigned at Not on file Legal Sex Female 7:06 PM SLOT OPERATIONS MANAGER Gender Identity Not on file Sexual Orientation Not on file documented as of this encounter Plan of Treatment Not on file documented as of this encounter Visit Diagnoses Not on filedocumented in this encounter Care Teams Retail Merchandiser Technician Relationship Specialty Start Date End Date Carlos Lee MD [address] [address] [address] PCP - General 02/24/22 10/25/24 Yanira Massey, DUMP MOTORMAN [address] [place] [address] PCP - General Family Medicine 10/26/24 documented as of this encounter
--- OUTSIDE RECORDS SUMMARY | 2025-01-13 14:11 | XMS_ITS | Encounter Summary ---
Author Organization [facility] Address [address] [place] [address] Phone Care Team Providers Care Hr Shared Services Consultant Name Role Phone Yanira Massey REVENUE INVESTIGATOR, MANAGER CLEANING Primary Care Provider + Encounter Details Date Type Department Care Team (Late st Contact Info) Description 12/04/2024 Telephone [facility] [address] [place] [address] Yanira Massey, REVENUE INVESTIGATOR, MANAGER CLEANING [address] [place] [address] Social History Tobacco Use Types Packs/Day Years Used Date Smoking Tobacco: Never Smokeless Tobacco: Never Alcohol Use Standard Drinks/Week Comments No 0 (1 standard drink = 0.6 oz pur e alcohol) [facility] Utilities Answer Date Recorded In the past 12 months has [employer], gas, oil, or water HTP threatened to shut off services in your home? No 03/30/2024 Social Connection and Isolation Panel [NHANES] A nswer Date Recorded In a typical week, how many times do you talk on the phone with family, friends, or neighbors? Twice a week 03/30/20 How often do you get togethe r with friends or relatives? Once a week 03/30/2024 How often do you attend chur or yarsanism services? Patient declined 03/30/2024 Do you belong to any clubs o r organizations such as episcopal groups, unions, fraternal or athletic groups, or school groups? Patient declined 03/30/2024 How often do you attend meet ings of the clubs or organizations you belong to? Patient declined 03/30/2024 Are you , , di vorced, , never , or living with a partner? Living with partner 03/30/2024 AUDIT-C Answer Date Recorded Q1: How often do you have a drink containing alc ohol? Monthly or less 03/30/2024 Q2: How many drinks containi ng alcohol do you have on a typical day when you are drinking? 1 or 2 03/30/2024 Q3: How often do you have si x or more drinks on one occasion? Never 03/30/2024 Overall Financial Resource Strain (CARDIA) Answe r Date Recorded How hard is it for you to pa y for the very basics like food, housing, medical care, and heating? Not very hard 03/30/2024 PHQ-2 Answer Date Recorded Total Score - Questions 1-9 0 09/25 [facility] - Occupational Stress Questionnaire Answer Date Recorded Do you feel stress - tense, restless, nervous, or anxious, or unable to sleep at night because your mind is troubled all the time - these days? Very much 03/30/2024 Exercise Vital Sign Answer Date Recorde d On average, how many days pe r week do you engage in moderate to strenuous exercise (like a brisk walk)? 3 days 03/30/2024 On average, how many minutes do you engage in exercise at this level? 150+ min 03/30/2024 Hunger Vital Sign Answer Date Recorded Within the past 12 months, y ou worried that your food would run out before you got the money to buy more. Never true 03/30/20 24 Within the past 12 months, t he food you bought just didn't last and you didn't have money to get more. Never true 03/30/2024 PRAPARE - Transportation Answer Date Re corded In the past 12 months, has l ack of transportation kept you from medical appointments or from getting medications? No 04/2024 In the past 12 months, has l ack of transportation kept you from meetings, work, or from getting things needed for daily living? No 03/30/2024 Housing Stability Vital Sign Answer Hema e Recorded In the last 12 months, was t here a time when you were not able to pay the mortgage or rent on time? No 03/30/2024 In the last 12 months, how many places have you lived? 1 03/30/2024 In the last 12 months, was t here a time when you did not have a steady place to sleep or slept in a penitentiary (including now)? No 03/30/2024 Education Answer Date Recorded What is the highest level of school you have completed or the highest degree you have received? 12th grade 04/04/2022 Sexually Active Control Partners Comments Yes Oral Contraceptive Male Comments Yes Sex and Gender Information Value Date Recorded Sex Assigned at Female 09/25/2024 12:30 PM CDT Legal Sex Female 10:36 PM CDT Gender Identity Female 09/25/2024 12:30 PM CDT Sexual Orientation Straight 09/25/2024 12 :30 PM CDT Occupation Industry Job Start Date Job End Date Personal Not on file Not on file Not on file documented as of this encounter Miscellaneous Notes * Telephone Encounter - Noemy Delgado - 12/04/2024 2:19 PM CST error UNITY ENGAGEMENT COORDINATOR documented in this encounter Plan of Treatment Not on file documented as of this encounter Goals Goal Patient Goal Type Associated Problems Recent Progress Patient-Stated? Author Behavioral Health Behavioral Health Yes Cayla Valdez, ENVIRONMENTAL ENGINEERING PROFESSOR Note: I want to not feel so anxious while I'm at work Goal Reviewed with: patient Readiness to change: Ready to change Department associated with goal: [facility] Steps to achieve goal: 1. Patient to be educated/counseled on deep breathing/relaxtion techniques 2. Patient to be educated/counseled on positive self-talk/challenging negative, unrealistic thoughts 3. documented as of this encounter Visit Diagnoses Not on filedocumented in this encounter Additional Health Concerns Assessment Noted Time PHQ-9 Depression Total Score: 0 10/13/20 24 3:07 PM COMMUNITY ENGAGEMENT COORDINATOR documented as of this encounter Care Teams Hr Shared Services Consultant Relationship Specialty Start Date End Date Yanira Massey, REVENUE INVESTIGATOR, MANAGER CLEANING [address] [place] [address] PCP - General Advanced Practice Nurse 06/17/24 documented as of this encounter
--- OUTSIDE RECORDS SUMMARY | 2025-01-13 14:11 | XMS_ITS | Clinical Summary ---
Author Organization [facility] Address [address] [address] Care Team Providers Care Movers Name Role Phone BrysonYanira Primary Care Provider [phone] Source Comments [facility],non-owned Affiliates and Associated Physician Practices is amultiple site organization consisting of ambulatory clinics and hospital sitesin [place], [place], [place] and [place]. This disclosure is being madepursuant to the Care Everywhere program and may not contain all information available regarding this patient. Last updated 18.[facility] [employer] Allergies Active Allergy Reactions Criticality Noted Date Comments Ondansetron Other 04/24/2022 Pt states it made her throat hot and she felt light headed Medications * Be aware that medications may not be up to date on this document. Alwaysverify current medications with the patient. Medication Sig Dispensed Refills Start Date End Date Status metroNIDAZOLE (Flagyl) 500 MG tablet Take 1 (one) tablet by mouth every 12 hours 12/03/2024 12/31/2024 Discontinued( List Clean-Up) Annovera 0.013-0.15 MG/24HR RING 01/16/2024 12/31/2024 Discontinued( List Clean-Up) Encounters Date Type Department Care Team Description 12/31/2024 8:20 AM DIRECTOR AGRICULTURAL SERVICES Office Visit [facility] - Rheumatology [facility] [place] [id number] Chioma Shelton MD Positive ANEL (antinuclear antibody) (Primary Dx) 12/31/2024 Travel from Last 3 Months Family History Medical History Relation Name Comments Lupus Maternal Grandmother Relation Name Status Comments Maternal Grandmother Social History Tobacco Use Types Packs/Day Years Used Date Smoking Tobacco: Never Smokeless Tobacco: Never Tobacco Cessation:Counseling Given: Not Answered Alcohol Use Standard Drinks/Week Comments Never 0 (1 standard drink = 0.6 oz pur e alcohol) PHQ-2 Answer Date Recorded Patient Health Questionnaire-2 Score 2 12/31/2024 Sex and Gender Information Value Date Recorded Sex Assigned at Not on file Gender Identity Not on file Sexual Orientation Not on file Last Filed Vital Signs Vital Sign Reading Time Taken Comments Blood Pressure 113/71 12/31/2024 8:34 AM DIRECTOR AGRICULTURAL SERVICES Pulse 71 12/31/2024 8:34 AM DIRECTOR AGRICULTURAL SERVICES Temperature 36.9 C (98.4 F) 12/31/2024 8:34 AM DIRECTOR AGRICULTURAL SERVICES Respiratory Rate - - Oxygen Saturation 96% 12/31/2024 8:34 AM DIRECTOR AGRICULTURAL SERVICES Inhaled Oxygen Concentration - - Weight 125.2 kg (276 lb) 12/31/2024 8:34 AM DIRECTOR AGRICULTURAL SERVICES Height 180.3 cm (5' 11 ) 12/31/2024 8:34 AM DIRECTOR AGRICULTURAL SERVICES Body Mass Index 38.49 12/31/2024 8:34 AM DIRECTOR AGRICULTURAL SERVICES Plan of Treatment Health Maintenance Due Date Last Done Comments PAP SMEAR 2000 HIV SCREENING 2015 HPV VACCINE (1 - 3-dose series) 2015 CHLAMYDIA/GONORRHEA SCREENING 2016 HEPATITIS C SCREENING 08/06/2018 DTAP/TDAP/TD VACCINES (1 - Tdap) 2019 HEPATITIS B VACCINE (1 of 3 - 19+ 3-dose series) 2019 COVID-19 VACCINE (1 - 2023-2 5 season) 2024 INFLUENZA VACCINE (#1) 2024 10/21/2023 MEDICARE AWV CALENDAR YEAR 2024 ZOSTER VACCINE (1 of 2) 2050 DEPRESSION SCREENING Completed 12/31/2024 HIB VACCINE Aged Out No longer eligi ble based on patient's age to complete this topic MENINGOCOCCAL (Group B) VACCINE Aged Out No longer eligible based on patient's age to complete this topic MENINGOCOCCAL VACCINE Aged Out No michelle danny eligible based on patient's age to complete this topic PNEUMOCOCCAL VACCINE Aged Out No long er eligible based on patient's age to complete this topic Care Teams Movers Relationship Specialty Start Date End Date Yanira Massey [address] [place] [address] PCP - General Ingot Supervisor 12/31/24
--- OUTSIDE RECORDS SUMMARY | 2025-01-13 14:11 | XMS_ITS | Encounter Summary ---
Author Organization [facility] Address [address] [place] [address] Phone Care Team Providers Care Coffee Grinder Name Role Phone Carlos Lee MD Primary Care Provider [phone] Yanira Massey APRN, MUFFLER HAND Primary Care Provider + Reason for Visit * Reason Onset Date Comments Fever 09/07/2020 Sore Throat 09/07/2020 Dizziness 09/07/2020 Encounter Details Date Type Department Care Team (Late Contact Info) Description 09/07/2020 Nurse Triage [facility] Digital Contact Center [address] [place] [address] Carlos Lee MD [address] [address] Fever; Sore Throat; Dizziness Social History Tobacco Use Types Packs/Day Years Used Date Smoking Tobacco: Never Smokeless Tobacco: Never Alcohol Use Standard Drinks/Week Comments No 0 (1 standard drink = 0.6 oz pur e alcohol) PHQ-2 Answer Date Recorded Total Score - Questions 1-9 0 01/2020 Education Answer Date Recorded What is the highest level of school you have completed or the highest degree you have received? High school graduate 06/27/2020 Sexually Active Control Partners Comments Not Currently Comments No Sex and Gender Information Value Date Recorded Sex Assigned at Female 09/25/2024 12:30 PM CDT Legal Sex Female 10:36 PM CDT Gender Identity Female 09/25/2024 12:30 PM CDT Sexual Orientation Straight 09/25/2024 12 :30 PM CDT Occupation Industry Job Start Date Job End Date Personal Not on file Not on file Not on file COVID-19 Exposure Response Date Recorded In the last month, have you been in contact with someone who was confirmed or suspected to have Coronavirus / COVID-19? No / Unsure 09/07/2020 2:23 PM CDT documented as of this encounter Miscellaneous Notes * Telephone Encounter - Carlos Lee MD - 09/07/2020 7:16 PM CDT Thanks for scheduling her! * Telephone Encounter - Olivia Abdullahi Michelet - 09/07/2020 2:10 PM CDT Reason for Disposition ??? SEVERE sore throat pain Protocols used: SORE THROAT-A-OH S: Sore throat, fever, ear ache B: Patient states symptoms have been present x 2 weeks. Boyfriend had just gotten over strep throat, so thought she had strep. She went to [facility]/ and was negative for strep and COVID. Tested on 09/05/20. Says the sore throat continues to worsen worsen. Noticed swollen glands of throat and also just below left ear. Left ear pain also present. Feels dizzy at times. Says very painful to swallow, and did notice a little wheezing but not present now. Tmax - 100. Taking tylenol, ibuprofen for fever and pain. A: Temp yesterday was 100. Has not taken today. Denies chills, SOB, breathing issues, cough, excessive salivation/drooling, headache, abdominal pain, NVD. She did notice a scattered rash a week or so ago, but that has resolved. 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 Says very painful to swallow but is able to eat and drink. Having normal BMs and urinating adequately. R; OV scheduled for tomorrow per patient request. Offered a visit today but patient declined. I advised if dizziness, breathing issues become worse or other emergent type symptoms should present tonight, she needs to go to ED. Patient agreeable. documented in this encounter Plan of Treatment Not on file documented as of this encounter Goals Goal Patient Goal Type Associated Problems Recent Progress Patient-Stated? Author Behavioral Health Behavioral Health Yes Cayla Valdez, HORN PLAYER Note: I want to not feel so anxious while I'm at work Goal Reviewed with: patient Readiness to change: Ready to change Department associated with goal: [facility] Steps to achieve goal: 1. Patient to be educated/counseled on deep breathing/relaxtion techniques 2. Patient to be educated/counseled on positive self-talk/challenging negative, unrealistic thoughts 3. documented as of this encounter Visit Diagnoses Not on filedocumented in this encounter Additional Health Concerns Infection Onset Date Last Indicated Resolved Time COVID - 19 09/12/2020 09/14/2020 10/10/2020 12:1 8 AM MALTED MILK MASHER Assessment Noted Time PHQ-9 Depression Total Score: 0 06/27/20 10:00 AM CDT documented as of this encounter Care Teams Coffee Grinder Relationship Specialty Start Date End Date Carlos Lee MD [address] [address] PCP - General Family Medicine 06/22/20 06/16/24 Yanira Massey, GALVANIZER ZINC, MUFFLER HAND [address] [place] [address] PCP - General Advanced Practice Nurse 06/17/24 documented as of this encounter
--- OUTSIDE RECORDS SUMMARY | 2025-01-13 14:11 | XMS_ITS | Patient Health Summary ---
Author Organization [facility] Address [address] [place] [address] Care Team Providers Care Enterprise Systems Manager Name Role Phone Yanira Massey Primary Care Provider [phone] Note from [facility],non-owned Affiliates and Associated Physician Practices is amultiple site organization consisting of ambulatory clinics and hospital sitesin [place], [place], [place] and [place]. This disclosure is being madepursuant to the Care Everywhere program and may not contain all information available regarding this patient. Last updated 18.[facility] Allergies * Ondansetron(Other) Medications * Be aware that medications may not be up to date on this document. Alwaysverify current medications with the patient. Ended Medications* metroNIDAZOLE (Flagyl) 500 MG tablet(Started 12/03/2024) (Discontinued) Take 1 (one) tablet by mouth every 12 hours * Annovera 0.013-0.15 MG/24HR RING(Started 01/16/2024)(Discontinued) Social History Tobacco Use Types Packs/Day Years [...] Comments Blood Pressure 113/71 12/31/2024 8:34 AM VENEER GRADER Pulse 71 12/31/2024 8:34 AM VENEER GRADER Temperature 36.9 C (98.4 F) 12/31/2024 8:34 AM VENEER GRADER Respiratory Rate - - Oxygen Saturation 96% 12/31/2024 8:34 AM VENEER GRADER Inhaled Oxygen Concentration - - Weight 125.2 kg (276 lb) 12/31/2024 8:34 AM VENEER GRADER Height 180.3 cm (5' 11 ) 12/31/2024 8:34 AM VENEER GRADER Body Mass Index 38.49 12/31/2024 8:34 AM VENEER GRADER Care Teams Enterprise Systems Manager Relationship Specialty Start Date End Date Yanira Massey [address] [place] [address] PCP - General Glass Bulb Machine Adjuster 12/31/24
--- OUTSIDE RECORDS SUMMARY | 2025-01-13 14:11 | XMS_ITS | Clinical Summary ---
Author Organization [facility] Address [address] [place] [address] Phone Care Team Providers Care Account Manager Relief Name Role Phone Yanira Massey APRN, MANAGER DISH Primary Care Provider + Allergies Active Allergy Reactions Criticality Noted Date Comments Ondansetron Other (see Comments) 04/24/2022 Pt states it made her throat hot and she felt light headed Medications ferrous sulfate 325 (65 Fe) MG TabletIndication s:Iron deficiency anemia, unspecified iron deficiency anemia type Take 1 Tablet by mouth daily. 30 Tablet 2 4 Active ergocalciferol (VITAMIN D) 06488 UNIT CapsuleIndicatio ns:Vitamin D deficiency Take 1 Capsule by mouth every 7 days for 12 doses. 4 Capsule 2 4 12/30/19 25 Active Problems Problem Noted Date Diagnosed Date Iron deficiency anemia 06/02/2024 Sore throat 01/07/2024 [place] eye disease of left eye 01/07/2024 Gestational hypertension, antepartum 06/07/2023 Otitis media 06/07/2023 Attention deficit hyperactivity disorder (ADHD) 05/16/2022 Vitamin D deficiency 04/30/2022 Gallstones 04/05/2022 Hair loss 04/05/2022 Fatigue 06/22/2020 Anxiety and depression 06/22/2020 Hyperglycemia 06/22/2020 Obesity (BMI 30-39.9) 06/22/2020 Anemia, normocytic normochromic 06/22/2020 Comments Yes Encounters Date Type Department Care Team Description 12/04/2024 Telephone [facility] [address] [place] [phone] Yanira Massey APRN, MANAGER DISH 11/24/2024 Telephone [facility] [address] [place] [phone] Yanira Massey, RN LABOR DELIVERY, MANAGER DISH Request for Records 11/20/2024 Telephone [facility] [address] [place] [phone] Yanira Massey, RN LABOR DELIVERY, MANAGER DISH Letter for School/Work 10/27/2024 [facility]phone [facility] [address] [place] [phone] Yanira Massey, RN LABOR DELIVERY, MANAGER DISH 10/13/2024 2:45 PM WIND POWER PROJECT MANAGER [facility] [address] [place] [phone] Yanira Massey, RN LABOR DELIVERY, MANAGER DISH Sprain of left ankle, unspecified ligament, initial encounter (Primary Dx); Vitamin D deficiency; Anxiety and depression; Neck pain Discharge Disposition: Discharged to home or Selfcare from Last 3 Months Immunizations Immunization Administration Dates Next Due DTAP VACCINE 02/27/2006, 1,05/08/2001,02/03,2000 Hepatitis A Vaccine, Pediatric/adolescent, 2 Dose Schedule 03/12/2012 Hepatitis A Vaccine,unspecif ied Formulation 08/27/2008 Hepatitis B Vaccine, Pediatric/adolescent 08/12/2001,05/08/2001,2000 Hib Vaccine,unspecified Formulation 10/27,05/08/2001,02/03/2001,10/15 Human Papillomavirus Vaccine (HPV), quadrivalent 07/23/2014 Inactivated Polio Vaccine 02/27/2006,,02/03/2001,10/15 Influenza Vaccine, Quadrivalent, PF 10/21/2023 MMR Vaccine 12/21/2021,02/27/2006,08/12/2001 Meningococcal MCV4, Unspecif ied Formulation 03/12/2012 Pneumococcal Vaccine Peds - 7 Valent ,05/08/2001,02/03/2001,10/15 TDAP Vaccine 11/17/2021, 9,03/12/2012,03/02 Varicella Vaccine Live 08/27/2008,08/12/2001 Family History Medical History Relation Name Comments No Known Problems Father Cancer Maternal Grandmother Shyla Kruse Agnieszka ast cancer Anxiety disorder Mother Rasheed Kruse Bipolar Disorder Mother Rasheed Kruse Depression Mother Rasheed Kruse Endometriosis Mother Rasheed Kruse No Known Problems Sister Relation Name Status Comments Father Alive Maternal Grandmother Shyla Kruse Mother Rasheed Kruse Alive Sister Alive Social History Tobacco Use Types Packs/Day Years Used Date Smoking Tobacco: Never Smokeless Tobacco: Never Tobacco Cessation:Counseling Given: Not Answered Alcohol Use Standard Drinks/Week Comments No 0 (1 standard drink = 0.6 oz pur e alcohol) Smallaaities Answer Date Recorded In the past 12 months has Responsible City, gas, oil, or water Avancert threatened to shut off services in your home? No 03/30/2024 Social Connection and Isolation Panel [NHANES] A nswer Date Recorded In a typical week, how many times do you talk on the phone with family, friends, or neighbors? Twice a week 03/30/20 How often do you get togethe r with friends or relatives? Once a week 03/30/2024 How often do you attend [facility] or mosque services? Patient declined 03/30/2024 Do you belong to any clubs o r organizations such as scientology groups, unions, fraternal or athletic groups, or [...] Total Score - Questions 1-9 0 09/25 [facility] - Occupational Stress Questionnaire Answer Date Recorded [...] place to sleep or slept in a senior care (including now)? No 03/30/2024 Education Answer Date [...] file Not on file Not on file Last Filed Vital Signs Vital Sign Reading Time Taken Comments Blood Pressure 124/72 10/13/2024 3:02 PM WIND POWER PROJECT MANAGER Pulse 72 10/13/2024 3:02 PM WIND POWER PROJECT MANAGER Temperature 37 C (98.6 F) 10/13/2024 3:02 PM WIND POWER PROJECT MANAGER Respiratory Rate 18 10/13/2024 3:02 PM WIND POWER PROJECT MANAGER Oxygen Saturation 98% 10/13/2024 3:02 PM WIND POWER PROJECT MANAGER Inhaled Oxygen Concentration - - Weight 126.1 kg (277 lb 14.4 oz) 10/13/2024 3:02 PM WIND POWER PROJECT MANAGER Height 180.3 cm (5' 11 ) 10/13/2024 3:02 PM WIND POWER PROJECT MANAGER Body Mass Index 38.76 10/13/2024 3:02 PM WIND POWER PROJECT MANAGER Plan of Treatment Health Maintenance Due Date Last Done Comments Hepatitis C Virus (HCV) Screening 2000 Human Papillomavirus (HPV) Immunization (2 - 2-dose series) 01/22/2015 07/23/2014 Pap Smear 2021 Influenza Immunization (#1) 2024 10/21/2023 SARS-COV-2 Immunization ( season) 2024 03/02/2022, 11/17/2021 DTaP/Tdap/Td Immunization (10 - Td or Tdap) 11/17/2031 11/17/2021, 01/30/2019, 03/12/2012, Additional history exists Respiratory Syncytial Virus (RSV) Immunization (Adult) (1 - 1-dose 75+ series) 2075 Hepatitis B Immunization Completed 001, 05/08/2001, 2000 Pneumococcal Immunization Combined Aged Out 08/12/2001, 05/08/2001, 02/03/2001, Additional history exists No longer eligible based on patient's age to complete this topic Meningococcal Immunization (ACWY) Aged Out 03/12/2012 No longer eligible based on patient's age to complete this topic Rotavirus Immunization Aged Out No lo nger eligible based on patient's age to complete this topic Goals Goal Patient Goal Type Associated Problems Recent Progress Patient-Stated? Author Behavioral Health Behavioral Health Yes Cayla Valdez, BELL HOLE DIGGER Note: I want to not feel so anxious while I'm at work Goal Reviewed with: patient Readiness to change: Ready to change Department associated with goal: [facility] Steps to achieve goal: 1. Patient to be educated/counseled on deep breathing/relaxtion techniques 2. Patient to be educated/counseled on positive self-talk/challenging negative, unrealistic thoughts 3. Insurance MEDICAID [employer] on file Care Teams Account Manager Relief Relationship Specialty Start Date End Date Yanira Massey, RN LABOR DELIVERY, MANAGER DISH [address] [place] [address] PCP - General Advanced Practice Nurse 06/17/24
--- OUTSIDE RECORDS SUMMARY | 2025-01-13 14:11 | XMS_ITS | Referral Summary ---
Author Organization [facility] Address [address] [place] [address] Care Team Providers Care Hydraulic Mechanic Name Role Phone Yanira Massey NP Primary Care Provider [phone] Encounters Date Type Department Care Team Description 10/26/2024 11:07 AM CHEMICAL DEPENDENCY COUNSELOR - 10/26/2024 3:10 PM CHEMICAL DEPENDENCY COUNSELOR Emergency [facility] Emergency Department [address] [place], [place] [id number] Vaginal bleeding during (Primary Dx) Discharge Disposition: Discharge to home or self care from Last 3 Months Allergies No known active allergies Medications prenat vit 51-votk-ltgby-om 3,6 35-5-1.2-400 mg capsule Take by mouth daily Active HYDROcodone-acet aminophen (NORCO) 5-325 mg per tabletIndication s:Pain Take 1 tablet by mouth every 4 (four) hours as needed for pain 30 tablet 9 Active ibuprofen (ADVIL,MOTRIN) 600 mg tabletIndication s:Pain Take 1 tablet (600 mg total) by mouth 3 (three) times a day Take with food. 30 tablet 2 Active miconazole 2 % vaginal creamIndications :Vulvovaginal Candidiasis Insert one applicator vaginally once daily at bedtime for 7 nights 45 g 4 Active Active Problems No known active problems Immunizations Immunization Administration Dates Next Due MMR 02/13/2019(Deferred: No longer n eeded) Social History Tobacco Use Types Packs/Day Years Used Date Smoking Tobacco: Never Smokeless Tobacco: Never Alcohol Use Standard Drinks/Week Comments Yes 0 (1 standard drink = 0.6 oz pur e alcohol) Personal Safety Answer Date Recorded Have you ever been in or are you currently in a harmful physical or emotional relationship or is someone making you feel afraid or unsafe? Denies 10/26/2024 Comments Unknown Sex and Gender Information Value Date Recorded Sex Assigned at Not on file Legal Sex Female 7:06 PM CHEMICAL DEPENDENCY COUNSELOR Gender Identity Not on file Sexual Orientation Not on file Last Filed Vital Signs Vital Sign Reading Time Taken Comments Blood Pressure 119/70 10/26/2024 2:50 PM CHEMICAL DEPENDENCY COUNSELOR Pulse 85 10/26/2024 2:50 PM CHEMICAL DEPENDENCY COUNSELOR Temperature 36.8 C (98.2 F) 10/26/2024 2:50 PM CHEMICAL DEPENDENCY COUNSELOR Respiratory Rate 18 10/26/2024 2:50 PM CHEMICAL DEPENDENCY COUNSELOR Oxygen Saturation 100% 10/26/2024 2:50 PM CHEMICAL DEPENDENCY COUNSELOR Inhaled Oxygen Concentration - - Weight 117.9 kg (260 lb) 10/26/2024 8:53 AM CHEMICAL DEPENDENCY COUNSELOR Height 180.3 cm (5' 11 ) 10/26/2024 8:53 AM CHEMICAL DEPENDENCY COUNSELOR Body Mass Index 36.26 10/26/2024 8:53 AM CHEMICAL DEPENDENCY COUNSELOR Plan of Treatment Not on file Procedures Procedure Name Priority Date/Time Associated Diagnosis Comments US OB UNDER 14 WEEKS W ENDOVAGINAL ED 10/26/2024 2:00 PM CHEMICAL DEPENDENCY COUNSELOR EGFR STAT 10/26/2024 11:40 AM CHEMICAL DEPENDENCY COUNSELOR DIFFERENTIAL AUTO STAT 10/26/2024 11: 40 AM CHEMICAL DEPENDENCY COUNSELOR ANTIBODY SCREEN STAT 10/26/2024 11:40 AM CHEMICAL DEPENDENCY COUNSELOR ABO/RH STAT 10/26/2024 11:40 AM CHEMICAL DEPENDENCY COUNSELOR HCG, BLOOD, QUANTITATIVE STAT 10/26/2024 11:40 AM CHEMICAL DEPENDENCY COUNSELOR TYPE AND SCREEN STAT 10/26/2024 11:40 AM CHEMICAL DEPENDENCY COUNSELOR COMPREHENSIVE METABOLIC PANEL STAT 10/26/2024 11:40 AM CHEMICAL DEPENDENCY COUNSELOR CBC WITH AUTO DIFFERENTIAL STAT 10/26/2024 11:40 AM CHEMICAL DEPENDENCY COUNSELOR from Last 3 Months Results * US Ob Under 14 Weeks W Endovaginal (10/26/2024 2:00 PM CHEMICAL DEPENDENCY COUNSELOR) Anatomical Region Laterality Modality Abdomen N/A Ultrasound 10/26/2024 2:39 PM CHEMICAL DEPENDENCY COUNSELOR Narrative 10/26/2024 2:47 PM CHEMICAL DEPENDENCY COUNSELOR EXAM DESCRIPTION: US OB UNDER 14 WEEKS W ENDOVAGINAL REASON FOR STUDY: Vaginal bleeding for 1 day. Beta-hCG: Reportedly 36,125 mIU/mL TECHNIQUE: Transabdominal and transvaginal images acquired of the pelvis. COMPARISON: OB ultrasound 06/12/2022 FINDINGS: Clinical gestational age: 7 weeks 4 days Clinical estimated Due Date: 06/10/2025 Intrauterine gestational sac: Present Yolk sac: Present Subchorionic bleed: There is a 2.4 x 1.3 cm irregularly shaped hypoechoic region near the gestational sac likely representing a subchorionic hemorrhage. Placenta: Not identified Brumley-rump length: 1.44 cm heart rate: 145 bpm Gestational age by this ultrasound: 7 weeks 5 days THO by this ultrasound: 06/09/2025 Uterus: The uterus is anteverted , measuring 13.7 x 6.5 x 10.6 cm. Right Ovary/Adnexa: The right ovary measures 3.9 x 2 x 2.1 cm. There is documentation of color Doppler flow in the right ovary. The right ovary appears unremarkable. No adnexal mass. Left Ovary/Adnexa: The left ovary measures 4 x 2 x 1.7 cm. There is documentation of color Doppler flow in the left ovary. Hypoechoic 2.4 cm lesion in the left ovary likely representing a corpus luteal or hemorrhagic cyst. Free Fluid: None. Other Findings: None. IMPRESSION: 1. Single live intrauterine . Gestational age by this ultrasound is 7 weeks 5 days. 2. Hypoechoic region adjacent to the gestational sac measuring 2.4 x 1.3 cm likely representing a subchorionic hemorrhage. 3. heart rate of 145 bpm. THIS IS AN ELECTRONICALLY VERIFIED FINAL REPORT 10/26/2024 2:47 PM - Electronically signed by Maikel Fisher M.D. LB: [facility] Report ID: [id number] Reading Location: [id number] Procedure Note Maikel Fisher MD - 10/26/2024 EXAM DESCRIPTION: US OB UNDER 14 WEEKS W ENDOVAGINAL REASON FOR STUDY: Vaginal bleeding for 1 day. Beta-hCG: Reportedly 36,125 mIU/mL TECHNIQUE: Transabdominal and transvaginal images acquired of thepelvis. COMPARISON: OB ultrasound 06/12/2022 FINDINGS: Clinical gestational age: 7 weeks 4 days Clinical estimated Due Date: 06/10/2025 Intrauterine gestational sac: Present Yolk sac: Present Subchorionic bleed: There is a 2.4 x 1.3 cm irregularly shapedhypoechoic region near the gestational sac likely representing a subchorionichemorrhage. Placenta: Not identified Brumley-rump length: 1.44 cm heart rate: 145 bpm Gestational age by this ultrasound: 7 weeks 5 days THO by this ultrasound: 06/09/2025 Uterus: The uterus is anteverted , measuring 13.7 x 6.5 x 10.6 cm. Right Ovary/Adnexa: The right ovary measures 3.9 x 2 x 2.1 cm. There is documentation of color Doppler flow in the right ovary. The right ovary appears unremarkable. No adnexal mass. Left Ovary/Adnexa: The left ovary measures 4 x 2 x 1.7 cm. There is documentation of color Doppler flow in the left ovary. Hypoechoic 2.4 cm lesion in the left ovary likely representing a corpus luteal orhemorrhagic cyst. Free Fluid: None. Other Findings: None. IMPRESSION: 1. Single live intrauterine . Gestational age by thisultrasound is 7 weeks 5 days. 2. Hypoechoic region adjacent to the gestational sac measuring 2.4 x 1.3cm likely representing a subchorionic hemorrhage. 3. heart rate of 145 bpm. THIS IS AN ELECTRONICALLY VERIFIED FINAL REPORT 10/26/2024 2:47 PM - Electronically signed by Maikel Fisher M.D. LB: KERRIE Report ID: [id number] Reading Location: [id number] Erin DANIEL IMG OB US PROCEDURES Final Resu lt * eGFR (10/26/2024 11:40 AM CHEMICAL DEPENDENCY COUNSELOR) eGFR >90 >=60 mL/min/1. 73 m2 Comment: Interpretive Data Reference Interval Normal >/= 90 mL/min/1.73m2 Mildly decreased* 60 - 89 mL/min/1.73m2 Mildly to moderately decreased 45 - 59 mL/min/1.73m2 Moderately to severely decreased 30 - 44 mL/min/1.73m2 Severely decreased 15 - 29 mL/min/1.73m2 Kidney Failure < 15 mL/min/1.73m2 *Relative to young adult level Estimated glomerular filtration rate is determined by the 2020 CKD-EPI equation recommended by the National Kidney Foundation (A Unifying Approach to GFR Estimation: Recommendations of the NKF-ASK Task Force on Reassessing the Inclusion of Race in Diagnosing Kidney Disease, JASN 2020). The CKD-EPI equation should not be used for patients with unstable renal function and has not been validated in children and those over 70. Current interpretive data was last reviewed 2021. Blood 10/26/2024 11:4 0 AM CHEMICAL DEPENDENCY COUNSELOR 10/26/2024 11:44 AM CHEMICAL DEPENDENCY COUNSELOR Erin DANIEL LAB BLOOD ORDERABLES Final Resu lt [facility] ([place] 1 [facility] [place] [address] * (ABNORMAL) Differential, auto (10/26/2024 11:40 AM CHEMICAL DEPENDENCY COUNSELOR) Neutrophil abs 7.1(H) 1.5 - 6.5 K/cumm Imm gran abs 0.0 0.0 - 0.1 K/cumm [facility] ([place]) Lymphocyte abs 2.9 0.8 - 3.3 K/cumm [facility] ([place]) Monocyte abs 0.7 0.2 - 0.8 K/cumm [facility] ([place]) Eosinophil abs 0.2 0.0 - 0.5 K/cumm [facility] ([place]) Basophil abs 0.0 0.0 - 0.1 K/cumm [facility] ([place]) Neutrophil pct 64.8 % [facility] ([place]) Comment: Interpretive Data Percent cell count reference ranges are not reported, since discordance with absolute values may lead to misinterpretation of CBC data. Current Interpretive Data was last revised on 2018. Imm gran pct 0.4 % [facility] ([place]) Comment: Interpretive Data Percent cell count reference ranges are not reported, since discordance with absolute values may lead to misinterpretation of CBC data. Current Interpretive Data was last revised on 2018. Lymphocyte pct 26.4 % [facility] ([place]) Comment: Interpretive Data Percent cell count reference ranges are not reported, since discordance with absolute values may lead to misinterpretation of CBC data. Current Interpretive Data was last revised on 2018. Monocyte pct 6.3 % [facility] ([place]) Comment: Interpretive Data Percent cell count reference ranges are not reported, since discordance with absolute values may lead to misinterpretation of CBC data. Current Interpretive Data was last revised on 2018. Eosinophil pct 1.7 % [facility] ([place]) Comment: Interpretive Data Percent cell count reference ranges are not reported, since discordance with absolute values may lead to misinterpretation of CBC data. Current Interpretive Data was last revised on 2018. Basophil pct 0.4 % [facility] ([place]) Comment: Interpretive Data Percent cell count reference ranges are not reported, since discordance with absolute values may lead to misinterpretation of CBC data. Current Interpretive Data was last revised on 2018. Blood 10/26/2024 11:4 0 AM CHEMICAL DEPENDENCY COUNSELOR 10/26/2024 11:44 AM CHEMICAL DEPENDENCY COUNSELOR us Erin DANIEL LAB BLOOD ORDERABLES Final Resu lt [facility] ([place]) 1 [facility] [place] [address] * (ABNORMAL) CBC with auto differential (10/26/2024 11:40 AM CHEMICAL DEPENDENCY COUNSELOR) WBC 10.9(H) 3.8 - 9.9 K/cumm Hgb 11.6(L) 11.9 - 15.5 g/dL [facility] ([place]) Hct 36.2 35.6 - 45.5 % [facility] ([place]) Plt 261 150 - 400 K/cumm [facility] ([place]) MPV 9.7 9.1 - 12.3 fL [facility] ([place]) RBC 4.42 3.90 - 5.20 M/cumm [facility] ([place]) MCV 81.9 81.3 - 96.4 fL [facility] ([place]) MCH 26.2(L) 27.1 - 33.3 pg [facility] ([place]) MCHC 32.0(L) 32.3 - 35.7 g/dL [facility] ([place]) RDW CV 13.0 11.1 - 14.9 % [facility] ([place]) RDW SD 38.3 35.7 - 48.1 fL [facility] ([place]) NRBC abs 0.00 0.00 - 0.01 K/cumm [facility] ([place]) Blood 10/26/2024 11:4 0 AM CHEMICAL DEPENDENCY COUNSELOR 10/26/2024 11:44 AM CHEMICAL DEPENDENCY COUNSELOR Erin DANIEL LAB BLOOD ORDERABLES Final Resu lt [facility] ([place]) [address] [facility] [place] [address] * ABO/Rh (10/26/2024 11:40 AM CHEMICAL DEPENDENCY COUNSELOR) ABO/Rh A Positive Blood 10/26/2024 11:4 0 AM CHEMICAL DEPENDENCY COUNSELOR 10/26/2024 11:44 AM CHEMICAL DEPENDENCY COUNSELOR Narrative [facility] ([place]) - 10/26/2024 12:29 PM CHEMICAL DEPENDENCY COUNSELOR Has the patient had Daratumumab or Isatuximab in the past 6 months?->Unknown Erin DANIEL LAB BLOOD BANK TEST ORDERABLES Final Result [facility] ([place]) [address] [place] [address] * Antibody screen (10/26/2024 11:40 AM CHEMICAL DEPENDENCY COUNSELOR) [facility] Dirk, indirect, Gel Interpretation Negative ABSC Blood 10/26/2024 11:4 0 AM CHEMICAL DEPENDENCY COUNSELOR 10/26/2024 11:44 AM CHEMICAL DEPENDENCY COUNSELOR Narrative [facility] ([place]) - 10/26/2024 12:29 PM CHEMICAL DEPENDENCY COUNSELOR Has the patient had Daratumumab or Isatuximab in the past 6 months?->Unknown Erin DANIEL LAB BLOOD BANK TEST ORDERABLES Final Result Performing Organization Address [facility] de Phone Number [facility] ([place]) [address] [place] [address] * (ABNORMAL) hCG, blood, quantitative (10/26/2024 11:40 AM CHEMICAL DEPENDENCY COUNSELOR) [facility] hCG, quant 36,125.0( H) 0.0 - 5.0 IUnits/L Comment: Interpretive Data Male: < 5 IU/L Non- premenopausal Female: <5 IU/L The Tao hCG Beta Quant assay procedure was used. Results from different manufacturers or methods may not be comparable. Serial testing should be performed using the same method. Interpretive Data was last revised on 2023 Blood 10/26/2024 11:4 0 AM CHEMICAL DEPENDENCY COUNSELOR 10/26/2024 11:44 AM CHEMICAL DEPENDENCY COUNSELOR Erin DANIEL LAB BLOOD ORDERABLES Final Resu lt Performing Organization Address [facility] Co de Phone Number [facility] ([place]) [address] [place] [address] * (ABNORMAL) Comprehensive metabolic panel (10/26/2024 11:40 AM CHEMICAL DEPENDENCY COUNSELOR) [facility] Sodium 135 135 - 145 mmol/L Potassium, pl 4.1 3.3 - 4.9 mmol/L [facility] ([place]) Chloride 102 97 - 110 mmol/L [facility] ([place]) CO2 24 22 - 32 mmol/L [facility] ([place]) Anion gap 9 2 - 15 mmol/L [facility] ([place]) BUN 7 6 - 25 mg/dL [facility] ([place]) Creatinine 0.48(L) 0.60 - 1.10 mg/dL [facility] ([place]) Glucose 96 70 - 199 mg/dL [facility] ([place]) Comment: Interpretive Data Fasting glucose >/= 126 mg/dl is diagnostic for diabetes. Fasting is defined as no caloric intake for at least 8 hours. Fasting glucose between 100 mg/dl to 125 mg/dl is diagnostic of prediabetes. In a patient with classic symptoms of hyperglycemia or hyperglycemic crisis, a random glucose >/= 200 mg/dl is diagnostic for diabetes. In the absence of unequivocal hyperglycemia, results should be confirmed by repeat testing. The classification and Diagnosis of Diabetes Diabetes Care 2021; 46: S19-S40. Current interpretive data was last revised 2022. Calcium 9.3 8.5 - 10.3 mg/dL [facility] ([place]) Bilirubin, total 0.5 0.1 - 1.2 mg/dL [facility] ([place]) Protein, pl 7.9 6.5 - 8.5 g/dL [facility] ([place]) Albumin 4.3 3.5 - 5.0 g/dL [facility] ([place]) Alk phos 52 40 - 130 Units/L [facility] ([place]) ALT 8 7 - 45 Units/L [facility] ([place]) AST 11 10 - 45 Units/L [facility] ([place]) Blood 10/26/2024 11:4 0 AM CHEMICAL DEPENDENCY COUNSELOR 10/26/2024 11:44 AM CHEMICAL DEPENDENCY COUNSELOR us Erin DANIEL LAB BLOOD ORDERABLES Final Resu lt [facility] ([place]) [address] [facility] [place] [address] from Last 3 Months Insurance [facility] Advance Directives For more information, please contact: [phone] * Full Code (Latest Code Status on File) Date Activated Date Inactivated Comments 02/11/2019 3:03 PM 02/13/2019 7:22 PM * Full Code Date Activated Date Inactivated Comments 02/09/2019 6:36 PM 02/11/2019 3:03 PM Full CPR in case of cardiopulmonary arrest Care Teams Hydraulic Mechanic Relationship Specialty Start Date End Date Yanira Massey NP [address] [place] [address] PCP - General Family Medicine 10/26/24
--- OUTSIDE RECORDS SUMMARY | 2025-01-13 14:11 | XMS_ITS | Clinical Summary ---
Author Organization [facility] Address [address] [place] [address] Phone Care Team Providers Care Property Consultant Name Role Phone Unavailable Primary Care Provider Unavailabl e Allergies No known active allergies Medications aspirin (OSCAR CHEWABLE) 81 mg Tablet, Chewable Take 81 mg by mouth daily. Active ferrous sulfate 325 mg (65 mg iron) tablet Take 325 mg by mouth daily. Active VIT-IRON FUM-FOLIC AC ORAL Take by mouth daily. Active folic acid (FOLVITE) 1 mg tablet Take 1 Tablet (1 mg) by mouth daily. 100 Tablet 2 08/24/2021 Active Hospital, Clinic, or Other Facility Administered Medication Ordered Dose Route Frequency Start Date End Date Status calcium-cholecalciferol (OS-ZAHIDA 500+D) tablet 1 TabletIndications:Dicho rionic diamniotic twin in second trimester 1 Tablet Oral TWO TIMES DAILY 08/24/2021 Active Active Problems Problem Noted Date Diagnosed Date Dichorionic diamniotic twin in third t rimester 08/24/2021 History of pre-eclampsia in prior , currently in third trimester 08/24/2021 Previous section complicating 08/24/2021 Elevated BP without diagnosis of hypertension Family History Medical History Relation Name Comments Healthy Father Healthy Mother Healthy Sister Relation Name Status Comments Father Alive Mother Alive Sister Alive Social History Tobacco Use Types Packs/Day Years Used Date Smoking Tobacco: Never Smokeless Tobacco: Never Alcohol Use Standard Drinks/Week Comments Not Currently 0 (1 standard drink = 0.6 oz pur e alcohol) Socially Comments No Sex and Gender Information Value Date Recorded Sex Assigned at Not on file Legal Sex Female 1:30 PM CDT Gender Identity Not on file Sexual Orientation Not on file Last Filed Vital Signs Vital Sign Reading Time Taken Comments Blood Pressure 122/80 11/14/2021 9:26 AM MULTI SLIDE MACHINE TENDER Pulse 115 11/14/2021 9:26 AM MULTI SLIDE MACHINE TENDER Temperature 36.8 C (98.2 F) 11/01/2021 12:40 PM MULTI SLIDE MACHINE TENDER Respiratory Rate 18 11/01/2021 12:4 0 PM MULTI SLIDE MACHINE TENDER Oxygen Saturation 98% 11/14/2021 9:26 AM MULTI SLIDE MACHINE TENDER Inhaled Oxygen Concentration - - Weight 123.7 kg (272 lb 12.8 oz) 11/14/2021 9:26 AM MULTI SLIDE MACHINE TENDER Height 180.3 cm (5' 11 ) 11/14/2021 9:26 AM MULTI SLIDE MACHINE TENDER Body Mass Index 38.05 11/14/2021 9:26 AM MULTI SLIDE MACHINE TENDER Plan of Treatment Health Maintenance Due Date Last Done Comments HPV VACCINES (2 - 2-dose series) 01/22/2015 07/23/20 14 CERVICAL CANCER SCREENING 2021 INFLUENZA VACCINE (#1) 2024 DTAP/TDAP/TD VACCINES (10 - Td or Tdap) 11/17/2031 11/17/2021, 01/30/2019, 03/12/2012, Additional history exists HEPATITIS B VACCINES Completed 08/12/2001, 05/08/2001, 2000 Insurance [employer] [place] Advance Directives For more information, please contact: [phone] * Full Code (Latest Code Status on File) Date Activated Date Inactivated Comments 11/01/2021 1:00 PM 11/01/2021 7:01 PM
--- OUTSIDE RECORDS SUMMARY | 2025-01-13 14:11 | XMS_ITS | Clinical Summary ---
Author Organization [facility] Address [address] [place] [address] Care Team Providers Care Manager Civil Name Role Phone Yanira Massey NP Primary Care Provider Allergies No known active allergies Medications prenat vit [id number] 3,6 [id number] mg capsule Take by mouth [...] Active Active Problems No known active problems Encounters Date Type Department Care Team Description 10/26/2024 11:07 AM POTATO PEELER - 10/26/2024 3:10 PM POTATO PEELER Emergency [facility] Emergency Department [address] [place] [address] Vaginal bleeding during (Primary Dx) Discharge Disposition: Discharge to home or self care from Last 3 Months Immunizations Immunization Administration Dates Next Due MMR [...] on file Legal Sex Female 7:06 PM POTATO PEELER Gender Identity Not on file Sexual Orientation Not on file Obstetrics History Para Term AB IAB SAB Ectopic Multiple Livin g Live Births 4 1 1 0 1 1 Date Outcome GA Total Labor Labor/2nd/3rd Weight Sex Type Anes PTL Cori A1 A5 Name Clin 2018 Term 37w 2d 0h 01m 0h 01m 2.649 kg (5 lb 13.4 oz) F CS-LT ranv Spinal N Livin g 8 9 [place] GUO Geoffr ey L., MD Complications:Pre eclampsia Delivery Location:This [facility] ([facility] L AND D PROCEDURE) Last Filed Vital Signs Vital Sign Reading Time Taken Comments Blood Pressure 119/70 10/26/2024 2:50 PM POTATO PEELER Pulse 85 10/26/2024 2:50 PM POTATO PEELER Temperature 36.8 C (98.2 F) 10/26/2024 2:50 PM POTATO PEELER Respiratory Rate 18 10/26/2024 2:50 PM POTATO PEELER Oxygen Saturation 100% 10/26/2024 2:50 PM POTATO PEELER Inhaled Oxygen Concentration - - Weight 117.9 kg (260 lb) 10/26/2024 8:53 AM POTATO PEELER Height 180.3 cm (5' 11 ) 10/26/2024 8:53 AM POTATO PEELER Body Mass Index 36.26 10/26/2024 8:53 AM POTATO PEELER Plan of Treatment Health Maintenance Due Date Last Done Comments Cervical Cancer Screening 2000 Chlamydia and Gonorrhea (GC/ CT) Screening 2000 Depression Screening 2000 Hepatitis C Screening 2000 HPV Vaccines (2 - 2-dose series) 01/22/2015 07/23/20 14 Regular Well Visit/Exam 18-64 2018 Covid-19 Vaccine (2 - 2023-2 5 season) 2024 11/17/2021 Influenza Vaccine (#1) 2024 10/21/2023 DTaP/Tdap/Td Vaccine (10 - T d or Tdap) 11/17/2031 11/17/2021, 01/30/2019, 03/12/2012, Additional history exists Pneumococcal vaccine <65 Completed 001, 05/08/2001, 02/03/2001, Additional history exists Varicella Vaccines Completed 08/27/2008, 08/12/2001 Procedures Procedure Name Priority Date/Time Associated Diagnosis Comments US OB UNDER 14 WEEKS W ENDOVAGINAL ED 10/26/2024 2:00 PM POTATO PEELER EGFR STAT 10/26/2024 11:40 AM POTATO PEELER DIFFERENTIAL AUTO STAT 10/26/2024 11: 40 AM POTATO PEELER ANTIBODY SCREEN STAT 10/26/2024 11:40 AM POTATO PEELER ABO/RH STAT 10/26/2024 11:40 AM POTATO PEELER HCG, BLOOD, QUANTITATIVE STAT 10/26/2024 11:40 AM POTATO PEELER TYPE AND SCREEN STAT 10/26/2024 11:40 AM POTATO PEELER COMPREHENSIVE METABOLIC PANEL STAT 10/26/2024 11:40 AM POTATO PEELER CBC WITH AUTO DIFFERENTIAL STAT 10/26/2024 11:40 AM POTATO PEELER from Last 3 Months Results * US Ob Under 14 Weeks W Endovaginal (10/26/2024 2:00 PM POTATO PEELER) Anatomical Region Laterality Modality Abdomen N/A Ultrasound 10/26/2024 2:39 PM POTATO PEELER Narrative 10/26/2024 2:47 PM POTATO PEELER EXAM DESCRIPTION: US OB UNDER 14 WEEKS [...] representing a subchorionic hemorrhage. Placenta: Not identified Falling Spring-rump length: 1.44 cm heart rate: 145 bpm [...] Maikel Fisher M.D. LB: KERRIE Report ID: [id number] Reading Location: [id number] Procedure Note Maikel Fisher MD - 10/26/2024 [...] likely representing a subchorionichemorrhage. Placenta: Not identified Falling Spring-rump length: 1.44 cm heart rate: 145 bpm [...] Maikel Fisher M.D. LB: KERRIE Report ID: [id number] Reading Location: [place] [address] us Erin DANIEL IMG OB US PROCEDURES Final Resu lt * eGFR (10/26/2024 11:40 AM POTATO PEELER) eGFR >90 >=60 mL/min/1. 73 m2 Comment: [...] reviewed 2021. Blood 10/26/2024 11:4 0 AM POTATO PEELER 10/26/2024 11:44 AM POTATO PEELER us Erin DANIEL LAB BLOOD ORDERABLES Final Resu lt NATAN BURNS ([place]) 1 [facility] [place] [address] * (ABNORMAL) Differential, auto (10/26/2024 11:40 AM POTATO PEELER) Neutrophil abs 7.1(H) 1.5 - 6.5 K/cumm [...] on 2018. Blood 10/26/2024 11:4 0 AM POTATO PEELER 10/26/2024 11:44 AM POTATO PEELER us Erin DANIEL LAB BLOOD ORDERABLES Final Resu lt [facility] (NAVJOT) 1 [facility] [place] [address] * (ABNORMAL) CBC with auto differential (10/26/2024 11:40 AM POTATO PEELER) WBC 10.9(H) 3.8 - 9.9 K/cumm Hgb [...] (NAVJOT) MCHC 32.0(L) 32.3 - 35.7 g/dL [facility] ([place]OT) RDW CV 13.0 11.1 - 14.9 % [facility] ([place]) RDW SD 38.3 35.7 - 48.1 fL [facility] ([place]) NRBC abs 0.00 0.00 - 0.01 K/cumm [facility] ([place] Blood 10/26/2024 11:4 0 AM POTATO PEELER 10/26/2024 11:44 AM POTATO PEELER Erin Nenita MS LAB BLOOD ORDERABLES Final Resu lt NATAN BURNS (NAVJOT) 1 [facility] [place] [address] * ABO/Rh (10/26/2024 11:40 AM POTATO PEELER) ABO/Rh A Positive Blood 10/26/2024 11:4 0 AM POTATO PEELER 10/26/2024 11:44 AM POTATO PEELER Narrative [facility] ([place]OT[facility] - 10/26/2024 12:29 PM POTATO PEELER Has the patient had Daratumumab or Isatuximab in the past 6 months?->[facility] ORDERABLES Final Result Performing Organization Address City/[facility]/ZIP Co de Phone Number NATAN BURNS ([place]) 1 [facility] [place] [place] [address] * Antibody screen (10/26/2024 11:40 AM POTATO PEELER) Dirk, indirect, Gel Interpretation Negative ABSC Blood 10/26/2024 11:4 0 AM POTATO PEELER 10/26/2024 11:44 AM POTATO PEELER Narrative [facility] ([place]JOT) - 10/26/2024 12:29 PM POTATO PEELER Has the patient had Daratumumab or Isatuximab in the past 6 months?->Unknown us Erin DANIEL LAB BLOOD BANK TEST ORDERABLES Final Result Performing Organization Address City/[facility] Co de Phone Number [facility] (NAVJOT) 1 [facility] [place] [address] * (ABNORMAL) hCG, blood, quantitative (10/26/2024 11:40 AM POTATO PEELER) hCG, quant 36,125.0( H) 0.0 - 5.0 IUnits/L Comment: Interpretive Data Male: < 5 IU/L Non- premenopausal Female: <5 IU/L The Tao hCG Beta Quant assay procedure was used. Results from different manufacturers or methods may not be comparable. Serial testing should be performed using the same method. Interpretive Data was last revised on 2023 Blood 10/26/2024 11:4 0 AM POTATO PEELER 10/26/2024 11:44 AM POTATO PEELER Erin DANIEL LAB BLOOD ORDERABLES Final Resu lt Performing Organization Address City/[facility] Co de Phone Number NATAN BURNS (NAVJOT) 1 [facility] [place] [address] * (ABNORMAL) Comprehensive metabolic panel (10/26/2024 11:40 AM POTATO PEELER) Pathologist [facility] Sodium 135 135 - 145 mmol/L Potassium, pl 4.1 3.3 - 4.9 mmol/L [facility] (NAVJOT) Chloride 102 97 - 110 mmol/L [facility] ([place]OT) CO2 24 22 - 32 mmol/L [facility] ([place]) Anion gap 9 2 - 15 mmol/L [facility] ([place]OT) BUN 7 6 - 25 mg/dL [facility] ([place]OT) Creatinine 0.48(L) 0.60 - 1.10 mg/dL [facility] (NAVJOT) Glucose 96 70 - 199 mg/dL [facility] (NAVJOT) Comment: Interpretive Data Fasting glucose [...] classification and Diagnosis of Diabetes Diabetes Care 202; 46: S19-S40. Current interpretive data was last [...] [facility] (NAVJOT) Blood 10/26/2024 11:4 0 AM POTATO PEELER 10/26/2024 11:44 AM POTATO PEELER us Erin DANIEL LAB BLOOD ORDERABLES Final Resu lt [facility] (NAV[place]OT) 1 [facility] [place] [address] from Last 3 Months Insurance [facility] Advance Directives For more information, please contact: [phone] * Full Code (Latest Code Status on File) Date Activated Date Inactivated Comments 02/11/2019 3:03 PM 02/13/2019 7:22 PM * Full Code Date Activated Date Inactivated Comments 02/09/2019 6:36 PM 02/11/2019 3:03 PM Full CPR in case of cardiopulmonary arrest Care Teams Manager Civil Relationship Specialty Start Date End Date Yanira Massey NP [address] [place] [address] PCP - General Family Medicine 10/26/24
--- OUTSIDE RECORDS SUMMARY | 2025-01-13 14:11 | XMS_ITS | Encounter Summary ---
Author Organization [facility] Address [address] [place] [address] Phone Care Team Providers Care Orthotic And Prosthetic Technician Name Role Phone Carlos Lee MD Primary Care Provider [phone] Yanira Massey APRN, [facility] Primary Care Provider + Encounter Details Date Type Department Care Team (Late st Contact Info) Description 04/06/2024 Telephone [facility] - Family Medicine [facility] [address] [place] [address] Carlos Lee MD [address] [address] Social History Tobacco Use Types Packs/Day Years Used Date Smoking Tobacco: Never Smokeless Tobacco: Never Alcohol Use Standard Drinks/Week Comments No 0 (1 standard drink = 0.6 oz pur e alcohol) [facility] Utilities Answer Date Recorded In the past 12 months has [employer] electric, gas, oil, or water company threatened to shut off services in your home? No 03/30/2024 Social Connection and Isolation Panel [NHANES] A nswer Date Recorded In a typical week, how many times do you talk on the phone with family, friends, or neighbors? Twice a week 03/30/20 How often do you get togethe r with friends or relatives? Once a week 03/30/2024 How often do you attend [facility] or congregation services? Patient declined 03/30/2024 Do you belong to any clubs o r organizations such as restoration groups, unions, fraternal or athletic groups, or [...] Recorded Total Score - Questions 1-9 0 04/2024 [facility] - [...] place to sleep or slept in a mcfp (including now)? No 03/30/2024 Education Answer Date Recorded What is the highest level of school you have completed or the highest degree you have received? 12th grade 04/04/2022 Sexually Active Control Partners Comments Not Currently [...] encounter Miscellaneous Notes * Telephone Encounter - Aspen Raymundo - 04/06/2024 1:14 PM CDT Patient made a new patient appointment on My Chart wanting to transfer to [facility] from [facility]. Does [facility] accept the transfer? documented in this encounter Plan of Treatment Not on file documented as of this encounter Goals Goal Patient Goal Type Associated Problems Recent Progress Patient-Stated? Author Behavioral Health Behavioral Health Yes Cayla Valdez, STEWARD/STEWARDESS BANQUET Note: I want to not feel so anxious while I'm at work Goal Reviewed with: patient Readiness to change: Ready to change Department associated with goal: [facility] Steps to achieve goal: 1. Patient to be educated/counseled on deep breathing/relaxtion techniques 2. Patient to be educated/counseled on positive self-talk/challenging negative, unrealistic thoughts 3. documented as of this encounter Visit Diagnoses Not on filedocumented in this encounter Additional Health Concerns Assessment Noted Time PHQ-9 Depression Total Score: 0 03/30/20 3:38 PM CDT documented as of this encounter Care Teams Orthotic And Prosthetic Technician Relationship Specialty Start Date End Date Carlos Lee MD #[address] [address] PCP - General Family Medicine 06/22/20 06/16/24 Yanira Massey, CONTINUITY READER, HOUSE SERVANT [address] [place] [address] PCP - General Advanced Practice Nurse 06/17/24 documented as of this encounter
--- OUTSIDE RECORDS SUMMARY | 2025-01-13 14:11 | XMS_ITS | Encounter Summary ---
Author Organization [facility] Address [address] [place] [address] Phone Care Team Providers Care Knife Edger Name Role Phone Carlos Lee MD Primary Care Provider [phone] Yanira Massey APRN, ASSISTANT EDUCATION DIRECTOR Primary Care Provider + Reason for Visit * Reason Comments Medication Refill Encounter Details Date Type Department Care Team (Late st Contact Info) Description 03/23/2024 Refill [facility] - Family Medicine - [place] [address] [place] [address] Carlos Lee MD [address] [address] Medication Refill Social History Tobacco Use Types Packs/Day Years Used Date Smoking Tobacco: Never Smokeless Tobacco: Never Alcohol Use Standard Drinks/Week Comments No 0 (1 standard drink = 0.6 oz pur e alcohol) PHQ-2 Answer Date Recorded Total Score - Questions 1-9 0 05/25 Education Answer Date Recorded What is the [...] encounter Miscellaneous Notes * Telephone Encounter - Sofia Shin RN - 03/24/2024 8:03 AM CDT This was given for an acute issue on 01/06/24. documented in this encounter Plan of Treatment Not on file documented as of this encounter Goals Goal Patient Goal Type Associated Problems Recent Progress Patient-Stated? Author Behavioral Health Behavioral Health Yes Cayla Valdez, WEBSPHERE ARCHITECT Note: I want to not feel so anxious while I'm at work Goal Reviewed with: patient Readiness to change: Ready to change Department associated with goal: [facility] Steps to achieve goal: 1. Patient to be educated/counseled on deep breathing/relaxtion techniques 2. Patient to be educated/counseled on positive self-talk/challenging negative, unrealistic thoughts 3. documented as of this encounter Visit Diagnoses Diagnosis Eye infection, left documented in this encounter Additional Health Concerns Assessment Noted Time PHQ-9 Depression Total Score: 0 06/07/20 23 10:53 AM CDT documented as of this encounter Care Teams Knife Edger Relationship Specialty Start Date End Date Carlos Lee MD #[address] [address] PCP - General Family Medicine 06/22/20 06/16/24 Yanira Massey, INDOOR LANDSCAPE ARCHITECT, ASSISTANT EDUCATION DIRECTOR [address] [place] [address] PCP - General Advanced Practice Nurse 06/17/24 documented as of this encounter
--- OUTSIDE RECORDS SUMMARY | 2025-01-13 14:11 | XMS_ITS | Referral Summary ---
Author Organization [facility] Address [address] [facility] [place] [address] Care Team Providers Care Impersonator Character Name Role Phone BrysonYanira Faizan Primary Care Provider [phone] Source Comments [facility],non-owned Affiliates and Associated Physician Practices is amultiple site organization consisting of ambulatory clinics and hospital sitesin [place], [place], [place] and [place]. This disclosure is being madepursuant to the Care Everywhere program and may not contain all information available regarding this patient. Last updated 18.[facility] [place] Encounters Date Type Department Care Team Description 12/31/2024 Travel 12/31/2024 8:20 AM STENCIL TYPIST Office Visit [facility] - Rheumatology [address] [place] [address] [place] [id number] Chioma Shelton MD Positive ANEL (antinuclear antibody) (Primary Dx) from Last 3 Months Allergies Active Allergy Reactions Criticality Noted Date [...] MG/24HR RING 01/16/2024 12/31/2024 Discontinued( List Clean-Up) Social History Tobacco Use Types Packs/Day Years [...] Comments Blood Pressure 113/71 12/31/2024 8:34 AM STENCIL TYPIST Pulse 71 12/31/2024 8:34 AM STENCIL TYPIST Temperature 36.9 C (98.4 F) 12/31/2024 8:34 AM STENCIL TYPIST Respiratory Rate - - Oxygen Saturation 96% 12/31/2024 8:34 AM STENCIL TYPIST Inhaled Oxygen Concentration - - Weight 125.2 kg (276 lb) 12/31/2024 8:34 AM STENCIL TYPIST Height 180.3 cm (5' 11 ) 12/31/2024 8:34 AM STENCIL TYPIST Body Mass Index 38.49 12/31/2024 8:34 AM STENCIL TYPIST Plan of Treatment Not on file Care Teams Impersonator Character Relationship Specialty Start Date End Date Yanira Massey [address] [place] [address] PCP - General Package Clerk 12/31/24
[2025-01-13 14:12] VITALS: BP 124/67; PULSE 76; RESP 16; TEMP 36.3; O2SAT 100
--- NOTE | 2025-01-13 14:18 | ED_ITS ---
HPI - Eye Problem General Chief complaint: Eye Problems Stated complaint: left eye Time Seen by Provider: 01/13/25 14:18 Source: patient and RN notes reviewed Mode of arrival: ambulatory Limitations: no limitations History of Present Illness HPI Narrative: 24-year-old female presents with concern for pain to the left lower eyelid this started yesterday. Reports a bump that is tender. She denies drainage. She r eports 1 episode of blurry vision this morning. chief complaint: eye pain Related Data Allergies Allergy/AdvReac Type Severity Reaction Status Date / Time ondansetron (From Zofran) AdvReac Intermediate Flushing Verified 01/13/25 14:17 Review of Systems Review of Systems: CONSTITUTIONAL: Denies malaise, chills, sweats, or fever. EYES: Denies visual changes. Reports pain, redness to the left lower eyelid ENT: Denies rhinorrhea, congestion, sinus pain, otalgia or sore throat. SKIN: Denies rash or itching. NEUROLOGIC: Denies numbness, weakness, or headache. PSYCHIATRIC: Denies anxiety or depression. All systems reviewed & are unremarkable except as noted in HPI and below PMFSH Past Medical History Medical History Suppression of menses and not yet delivered Gestational hypertension History of miscarriage x 1 History of pre-eclampsia 2019 Bacterial meningitis Surgical History Surgical History Previous section 2019 for failure to progress 12/19/21 [place] 2022 Family History Family History Mother Anxiety Depression Fibromyalgia Endometriosis Grandparent Lupus Breast cancer Hypertension Social History Social History Smoking status: Former smoker Tobacco type: e-cigarettes/vaping Alcohol intake: never Substance use: never Substance use type: does not use Do You Feel Safe in your Home?: Yes Lack of Transportation: No Lack of Food: Never True Current Housing: I Have Housing Concerned About Future Housing: No Difficulty Paying Gas/Electric Bills: No Difficulty Paying for Meds: No Currently Unemployed: No Education: High School Diploma/GED Difficulty w/ Childcare or Family Care: No Living arrangements: with family Occupation/Education: occupation Gender identity (if verbalized by the patient): Female Spiritual care concerns: No Comments At time of signature, agree with nursing past medical, surgical, social and family history. There is no relevant family history pertinent to the presenting complaint Exam Narrative: GENERAL: Well-appearing, well-nourished, and in no acute distress. HEAD: Normocephalic, atraumatic. EYES: PERRLA, sclera clear, and EOMI. No nystagmus. Bilateral conjunctivae and sclera clear. Right Upper and lower eyelid unremarkable, no periorbital edema noted. Hordeolum noted to the Left lower eyelid ENT: Nares clear, turbinates pink, no rhinorrhea or epistaxis. Mucous membranes moist. TM pearly asekw with sharp light reflex bilaterally; no tragal tenderness. NECK: Supple. CHEST: No respiratory distress. Speaks in full sentences. HEART: Regular rate and rhythm. SKIN: Warm, dry, no visible rash. NEURO: Alert and oriented x3. PSYCH: Normal mood and affect Course Course Emergency Course: Patient is aware of diagnosis, understands and agrees to treatment plan. Antici patory guidance given. Patient agrees to follow-up as directed and is aware of reasons to seek care at the emergency department. Portions of this record may have been created with voice recognition software Level of Care: Express Care Visit Vital Signs Vital signs: Vital Signs Temperature 97.3 F L 01/13/25 14:12 Pulse Rate 76 01/13/25 14:12 Respiratory Rate 16 01/13/25 14:12 Blood Pressure 124/67 01/13/25 14:12 Pulse Oximetry 100 01/13/25 14:12 Oxygen Delivery Room Air 01/13/25 14:12 Temperature 97.3 F L 01/13/25 14:12 Pulse Rate 76 01/13/25 14:12 Respiratory Rate 16 01/13/25 14:12 Blood Pressure 124/67 01/13/25 14:12 Pulse Oximetry 100 01/13/25 14:12 Oxygen Delivery Room Air 01/13/25 14:12 Reviewed. MDM - Eye Problem MDM Narrative Medical decision making narrative: Consideration of the following conditions may be warranted for the presenting problem, they are not final diagnoses: Bacterial conjunctivitis, allergic conjunctivitis, viral conjunctivitis, foreign body, blepharitis, chalazion, hordeolum, corneal abrasion, preseptal cellulitis, orbital cellulitis. No evidence of proptosis, ophthalmoplegia, vision loss, pain with eye movement. Exam findings show no acute concerns or changes; patient is non-toxic appearing and is in no distress. Patient is appropriate for outpatient treatment and follow-up. Critical Care Time Critical Care Time Critical Care Time: No Discharge Plan Discharge Clinical Impression: Hordeolum Patient Disposition: Home, Self-Care Condition: Stable Instructions: Teresa (ED) Additional Instructions: Do not touch or rub your eye. Use a warm washcloth on your eye as often as possible Use eyedrops as directed Practice good handwashing and hygiene You may take Tylenol or ibuprofen for pain Follow-up with PCP or school vocational educator if condition is not improving in 2-3days. Go to the emergency room if you have pain behind your eye, pressure behind your eye, difficulty seeing, or other severe symptoms Patient Language: Telugu Prescriptions: New polymyxin B sulf-trimethoprim 10,000 unit- 1 mg/mL drops 1 drp LEFT EYE Q3H 7 Days Qty: 10 0RF Rx Instructions: while awake; do not exceed 6 doses in 24 hours Follow-up/Referrals: Yanira Massey RN [Primary Care Provider] - Stand Alone Forms: Work/School Release IP Time of Disposition: 14:22
== END 2025-01-13 14:23 | disposition home or self-care (01) ==
PROVIDERS: Emergency Provider Nurse Practitioner
DX: H00.015 Hordeolum externum left lower eyelid (principal); Z86.61 Personal history of infections of the central nervous system
CPT/HCPCS: 99213; G0463